=== PATIENT | male | born 1945 | race Caucasian/White ===

== ENCOUNTER 2016-12-22 14:36 | Inpatient (IN) ==
[2016-12-22 17:50] LABS: Basophils % 0.2 %; Eosinophils # 0.3 K/mcL (0.0-0.6); Hemoglobin 11.5 g/dL (12.9-16.9); Immature Granulocytes % 0.5 % (0-4); Immature Platelets 3.2 % (1.1-6.1); Lymphocytes # 1.7 K/mcL (0.6-4.6); Lymphocytes % 13.4 %; Mean Corpuscular HGB Conc 31.1 g/dL (31.6-35.5); Mean Corpuscular Hemoglobin 31.3 pg (28.0-33.3); Mean Corpuscular Volume 100.5 fL (83.0-100.0); Mean Platelet Volume 9.9 fL (9.4-12.4); Monocytes # 0.8 K/mcL (0.0-1.3); Neutrophils # 10.1 K/mcL (1.6-8.9); Platelet Count 268 K/mcL (140-400); Red Blood Count 3.68 M/mcL (4.19-5.50); Red Cell Distribution Width 13.2 % (11.5-14.5); Segmented Neutrophils % 77.9 %
[2016-12-22 18:04] LABS: Alanine Aminotransferase 14 Units/L (0-55); Albumin 3.1 g/dL (3.5-5.0); Albumin/Globulin Ratio 0.9 (1.1-2.2); Alkaline Phosphatase 71 Units/L (38-126); Aspartate Amino Transferase 11 Units/L (5-34); BUN/Creatinine Ratio 11 (6-26); Bilirubin,Total 0.3 mg/dL (0.2-1.2); Blood Urea Nitrogen 13 mg/dL (8-26); Calcium 9.6 mg/dL (8.6-10.8); Carbon Dioxide 36 mEq/L (19-29); Chloride 96 mEq/L (98-109); Globulin 3.5 g/dL (2.4-3.5); Glucose 94 mg/dL (70-99); Osmolality,Calculated 288 (280-300); Potassium 4.4 mEq/L (3.5-4.5); Sodium 139 mEq/L (136-145); Total Protein 6.6 g/dL (6.0-8.3); eGFR For African Americans > 60 (> 60); eGFR For Non-African Americans 59 (> 60)
[2016-12-22] MEDS ORDERED: Naloxone 0.4 MG/ML INJ IVP PRN (18:27)
[2016-12-22] MEDS ORDERED: Acetaminophen 325 MG TABLET PO PRN (18:27)
[2016-12-22] MEDS ORDERED: Ondansetron 4 MG/2 ML VIAL IVP PRN (18:27)
[2016-12-22] MEDS ORDERED: *HR* Morphine 2 MG/ML SYRINGE IVP PRN (18:27)
[2016-12-22] MEDS ORDERED: Td (TENIVAC) Vaccine 0.5 ML VIAL IM ONE (18:38)
[2016-12-22] MEDS ORDERED: *HR* Dextrose 50 % in Water (Syg) 50 ML SYRINGE IVP PRN (19:00)
[2016-12-22] MEDS ORDERED: Dextrose Gel 15 GM PO PRN ×2 (19:00)
[2016-12-22] MEDS ORDERED: D5% in Water 1,000 ML IVC PRN (19:00)
[2016-12-22] MEDS ORDERED: Albuterol 2.5 MG/3 ML NEBULIZER IH PRN (20:03)
[2016-12-22] MEDS: Budesonide/Formoterol 160/4.5 MDI IH SCH (20:23)
[2016-12-22] MEDS: Ipratropium/Albuterol Neb 3 ML IH SCH ×2 (20:23→23:30)
--- NOTE | 2016-12-22 20:29 | Internal Med History&Physical ---
<Chidi Landrum - Last Filed: 12/22/16 21:19> Date of Encounter: 12/22/16 Time of Encounter: 19:00 Assessment and Plan (1) Cellulitis of left foot Current visit: Yes Status: Acute Patient presents with cellulitis of left foot from stepping on a toothpick wearing only socks. Patient feels there is more debris inside wound which is located under foot on near third toe. Xray today shows no radiopaque foreign body in the left foot. WBC on admission is 12.9. Patient does not meet sepsis criteria based on current VS but will be monitored closely for changes. Consult to Podiatry ordered and discussed with Dr. Banegas who will see patient in the a.m. for procedure. Patient to be NPO at midnight. IV clindamycin 900 mg every 8 and IV ciprofloxacin 400 mg every 12 ordered for infection coverage. Stair- step pain medication for pain management. Falls/safety precautions ordered. (2) Acute exacerbation of chronic obstructive airways disease Current visit: Yes Status: Acute Patient presents with acute exacerbation of COPD. Patient reports he uses home O2 @3L. Currently patient is SOB with and without exertion. Patient's SpO2 in high 80's @ 2L. Elevated HOB improved symptoms. DuoNebs ordered Q4 scheduled. Patient placed on supplemental O2 with titration if SpO2 <92% and continuous SpO2 monitoring. Will continue patient's inhalers as needed. Solumedrol 60 mg Q12 ordered. Monitor patient and VS for signs of respiratory distress. (3) Conjunctivitis Current visit: Yes Status: Acute Patient presents with acute conjunctivitis of the left eye with discharge. Tobramycin ophthalmic drops ordered TID for left eye. Qualifiers: Conjunctivitis type: unspecified Laterality: left Qualified Code(s): H10.9 - Unspecified conjunctivitis (4) Hyperglycemia Current visit: Yes Status: Acute Patient reports he is prediabetic and currently does not take any oral anti- hyperglycemic medications or insulin for coverage. Patient placed on Solu- Medrol 60 mg every 12 for COPD exacerbation. Will monitor blood glucose before meals at bedtime and insulin low-dose correction sliding scale ordered with hypoglycemic protocol. A1c ordered in a.m. labs. (5) HLD (hyperlipidemia) Current visit: Yes Status: Chronic Patient presents with history of chronic hyperlipidemia. Lipid panel ordered and will continue patient's Zocor. Qualifiers: Hyperlipidemia type: pure hypercholesterolemia Qualified Code(s): E78.00 - Pure hypercholesterolemia, unspecified; E78.0 - Pure hypercholesterolemia (6) HTN (hypertension) Current visit: Yes Status: Chronic Patient presents with history of chronic hypertension. Will monitor patient and vital signs and continue atenolol and Imdur by mouth. Qualifiers: Hypertension type: essential hypertension Qualified Code(s): I10 - Essential (primary) hypertension (7) GERD (gastroesophageal reflux disease) Current visit: Yes Status: Chronic Patient presents with history of chronic gastroesophageal reflux disease. Zofran IVP every 6 when necessary and Protonix IVP 40 mg daily ordered. Qualifiers: Esophagitis presence: esophagitis presence not specified Qualified Code(s) : K21.9 - Gastro-esophageal reflux disease without esophagitis (8) Anemia Current visit: Yes Status: Chronic Patient presents with chronic anemia. Patient's Hgb today is 11.5 and HCT is 37. Previously on 09/15/16, patient's Hgb was 13.7 and HCT was 43.5. Patient denies any unusual bleeding in urine or stool. Will monitor H&H and follow-up labs. Will continue patient's daily by mouth B12. Qualifiers: Anemia type: unspecified type Qualified Code(s): D64.9 - Anemia, unspecified (9) CKD (chronic kidney disease) stage 3, GFR 30-59 ml/min Current visit: Yes Status: Chronic Patient presents with history of chronic kidney disease stage III with current GFR of 59. Will use IV fluids judiciously if oriented and avoid nephrotoxic agents. Monitor I&O and daily weight. (10) DVT prophylaxis Current visit: Yes Status: Acute Patient to be placed on DVT prophylaxis due to current admission protocol and bed rest status. Heparin 5,000 units SQ Q8 ordered. Internal Medicine - H&P: HPI Chief complaint: Cellulitis of left foot Admitted From: Emergency Dept Plans for Post Hospital Care: Home History of present illness: Mr. Vickers is a 71 year old male with medical history of COPD, CHF, [place] in 1984 , HLD, HTN, GERD, and pre-diabetes presents from [place] [facility] with complaint of stepping on a toothpick at his home which entered his left foot at the third toe. Patient was wearing socks but no shoes at the time. Patient was referred from [place] ED and Xray of foot today showed no radiopaque foreign body in the left foot, diffuse osteopenia, and no acute osseous abnormality in the left foot. Patient reports SOB due to COPD for which he reports using 3L O2 at home. Patient denies chest pain, recent illness, fever, chills, palpitations, nausea , vomiting, abdominal pain, lightheadedness, dizziness, vision changes, presyncope, or syncope. Patient reports smoking 3-10 cigarettes daily. On admission, patient's vital signs include temperature of 98.1F, heart rate of 74 bpm, respiratory rate of 16, BP of 117/67, and SPO2 96% on 2 L. Abnormal lab values include WBC of 12.9, Hgb 11.5, HCT of 37.0, CO2 36, GFR 59, and chloride of 96. Patient reports being chronically anemic and current Hgb and HCT are near his baseline. Patient denies any unusual bleeding. On examination, patient presents as short of breath due to acute exacerbation of COPD. Patient' s left foot is erythematous and edematous due to anterior toothpick in the foot and foot appears to be cellulitic. Heart rate is RRR and lungs have diminished breath sounds and patient is using accessory muscle breathing due to COPD exacerbation. No pedal edema is present with the exception of left foot due to cellulitis. Patient is hemodynamically stable and reports only moderate respiratory distress at this time. Patient denies any chest pain or other symptoms. Information taken from patient, chart review, her previous medical records and imaging. Mr. Vickers is at high risk for infection and sepsis due to current symptoms and history of replaced his inpatient status with consult to podiatry ordered and discussed with Dr. Banegas. Time spent with patient greater than 40 minutes. Past Med Surg Social Fam HX - Past Medical History Source: patient, old records reviewed Medical history: arthritis, asthma, COPD, GERD, hyperlipidemia, hypertension, renal disease, other Psychiatric history: no psych history - Past Surgical History Surgical History: orthopedic, other (Right forearm fracture, right rotator cuff repair), other (History of cardiac catheterizations without other intervention) - Social History Smoking Status: Current some day smoker Packs per day: 3-10 cigarettes daily Smokeless Tobacco Status: No Alcohol use: none Drug use: none Current living situation: Home Activity Level: Independent ambulation, Uses cane/walker Recent Out of Country Travel Within the Last 8 Weeks: No Exposure or Possible Exposure to Illness During Travel: No - Family History Father Race: Family Member Ethnicity: Non- Living Status: Age at : 63 Cause of : Stroke Hx Family Cardiac Disorders: Yes (GA, CHF, HTN, Stroke) Hx Family Endocrine Disorder: Yes (DM) Mother Race: Family Member Ethnicity: Non- Living Status: Age at : 80 Cause of : Stroke Hx Family Cardiac Disorders: Yes (Stroke, CHF) Brother Race: Family Member Ethnicity: Non- Living Status: Age at : 65 Cause of : CHF Hx Family Cardiac Disorders: Yes (CHF) Hx Family Respiratory Disorders: Yes (COPD, Mesothelioma) Internal Medicine - H&P: Meds Albuterol Sulfate [Proair Hfa] 2 puff IH Q4H PRN 10/25/16 [History] Allopurinol [Zyloprim 100 MG] 200 mg PO DAILY 10/25/16 [History] Atenolol [Tenormin] 50 mg PO DAILY 10/25/16 [History] Budesonide/Formoterol 160/4.5 [Symbicort 160/4.5] 2 puff IH BIDR 10/25/16 [ History] Cholecalciferol (Vitamin D3) [Vitamin D3] 1,000 unit PO DAILY 10/25/16 [History] Clopidogrel [Plavix] 75 mg PO DAILY 10/25/16 [History] Cyanocobalamin (Vitamin B-12) [Vitamin B-12] 2,000 mcg PO DAILY 10/25/16 [ History] Fluticasone Propionate Nasal [Flonase] 50 mcg NS DAILY 10/25/16 [History] Gabapentin [Gralise] 300 mg PO DAILY 10/25/16 [History] Simvastatin [Zocor] 40 mg PO HS 10/25/16 [History] Tiotropium [Spiriva] 18 mcg IH 0700 10/25/16 [History] Albuterol Neb [Proventil Neb] 2.5 mg IH [id number] PRN inh 10/30/16 [Rx] Isosorbide MONOnitrate (24 HR) [Imdur] 30 mg PO DAILY #30 11/03/16 [Rx] Docusate [Colace] 100 mg PO BID PRN 11/27/16 [Rx] Acetaminophen [Tylenol Arthritis] 650 mg PO Q6H PRN 12/22/16 [History] Aspirin 325 mg PO DAILY 12/22/16 [History] Fluticasone/Vilanterol [Breo Ellipta 200-25 Mcg INH] 1 each IH DAILY 12/22/16 [ History] Furosemide [Lasix] 40 mg PO DAILY 12/22/16 [History] HYDROcodone/Acet 5/325 mg [[place] 5-325 mg] 1 tab PO Q4H PRN 12/22/16 [History] Omeprazole [PriLOSEC] 20 mg PO DAILY 12/22/16 [History] Ondansetron ODT [Zofran ODT] 4 mg PO Q4H PRN 12/22/16 [History] Oxygen 3 l NS AD 12/22/16 [History] 3 Allergy/AdvReac Type Severity Reaction Status Date / Time Erythromycin Base Allergy Hives Verified 11/24/16 23:44 Penicillins [PCN] Allergy Hives Verified 11/24/16 23:44 All Systems PM: A 10-system review of systems was performed and is negative for pertinent findings except as documented above in the HPI. - Constitutional Constitutional: no chills, no fever(s), no night sweats - EENT Eyes: no change in vision, no discharge, no pain, no photophobia Ears: no ear discharge, no ear pain, no tinnitus Nose, mouth and throat: no dysphagia, no nasal discharge, no neck pain, no sore throat - Breasts Breasts: as per HPI - Cardiovascular Cardiovascular ROS IM: dyspnea, dyspnea on exertion (Due to COPD exacerbation), no chest pain, no diaphoresis, no lightheadedness, no palpitations, no syncope - Respiratory Respiratory: dyspnea, dyspnea on exertion (Due to COPD exacerbation), no cough, no wheezing, no excessive phlegm production - Gastrointestinal Gastrointestinal: no abdominal pain, no diarrhea, no hematemesis, no hematochezia, no melena, no nausea, no vomiting - Genitourinary Genitourinary ROS male: as per HPI - Musculoskeletal Musculoskeletal ROS IM: no numbness, no tingling - Integumentary Integumentary IM: as per HPI, erythema (Left foot d/t cellulitis), sores (Left foot at third toe from entry point of toothpick), no rash, no unusual bruising - Neurological Neurological ROS: no confusion, no convulsions, no focal weakness, no numbness, no tingling, no tremor(s) - Psychiatric Psychiatric: as per HPI - Endocrine Endocrine IM: as per HPI - Hematologic/Lymphatic Hematologic/Lymphatic: no easy bruising - Allergic/Immunologic Allergic/Immunologic: as per HPI - Constitutional Vitals: Temp Pulse Resp BP Pulse Ox 98.1 F 74 16 117/67 96 12/22/16 19:04 12/22/16 19:04 12/22/16 19:04 12/22/16 19:04 12/22/16 19:04 General appearance: Present: cooperative, mild distress, A&O X 3, pleasant, obese, answers questions appropriately - Head Head exam: Present: atraumatic, normocephalic - Eye Eye exam: Present: PERRL, conjuntiva pink, sclera anicteric Pupils: Present: PERRL - ENT ENT exam: Present: normal exam, normal external ear exam - Neck Neck exam general surgery: Present: normal inspection, supple, trachea midline. Absent: lymphadenopathy - Respiratory Respiratory exam: Present: accessory muscle use, decreased breath sounds, respiratory distress (Due to COPD exacerbation), wheezes - Cardiovascular Cardiovascular exam: Present: RRR, +S1, +S2. Absent: diastolic murmur, gallop, rubs, systolic murmur - GI/Abdominal GI/Abdominal exam: Present: normal bowel sounds, soft, no peritoneal signs. Absent: distended, tenderness - Rectal Rectal exam: Present: deferred - Additional comments: exam deferred. - Extremities Exam Extremities exam: Present: pedal edema (Left foot d/t cellulitis), warm, radial pulses palpable and symmetrical. Absent: calf tenderness, cyanotic - Back Exam Back exam: Present: normal inspection - Neurological Exam Neurological exam: Present: CN II-XII intact, oriented X3, no focal deficits. Absent: pronater drift, facial droop, speech deficit - Psychiatric Psychiatric exam: Present: normal affect, normal mood - Skin Skin exam: Present: dry, intact Internal Med - H&P Results - Labs CBC & Chem 7: 12/22/16 17:36 12/22/16 17:36 Labs: Short CBC 12/22/16 Range/Units 17:36 WBC 12.9 H (4.3-11.1) K/mcL Hgb 11.5 L (12.9-16.9) g/dL Hct 37.0 L (37.5-50.1) % Plt Count 268 (140-400) K/mcL Neutrophils # 10.1 H (1.6-8.9) K/mcL BMP 12/22/16 17:36 Sodium 139 Potassium 4.4 Chloride 96 L Carbon Dioxide 36 H BUN 13 Creatinine 1.21 Glucose 94 Calcium 9.6 Liver Function 12/22/16 Range/Units 17:36 Total Bilirubin 0.3 (0.2-1.2) mg/dL AST 11 (5-34) Units/L ALT 14 (0-55) Units/L Alkaline Phosphatase 71 (38-126) Units/L Albumin 3.1 L (3.5-5.0) g/dL <Jamal Mane - Last Filed: 12/23/16 00:00> Date of Encounter: 12/22/16 Time of Encounter: 23:20 - Constitutional Vitals: Temp Pulse Resp BP Pulse Ox 97.7 F 77 21 123/68 94 12/22/16 23:22 12/22/16 23:22 12/22/16 23:30 12/22/16 23:22 12/22/16 23:30 General appearance: Present: cooperative, A&O X 3, pleasant - Eye Eye exam: Present: conjunctival injection, PERRL. Absent: scleral icterus - Respiratory Respiratory exam: Present: decreased breath sounds, rhonchi, wheezes. Absent: rales - Cardiovascular Cardiovascular exam: Present: RRR, +S1, +S2 - GI/Abdominal GI/Abdominal exam: Present: soft. Absent: tenderness - Extremities Exam Extremities exam: Present: pedal edema Additional comments: left foot with small puncture wound and surrounding cellulitis noted - Back Exam Back exam: Absent: CVA tenderness (L), CVA tenderness (R) Internal Med - H&P Results - Labs CBC & Chem 7: 12/22/16 17:36 12/22/16 17:36 Labs: Short CBC 12/22/16 Range/Units 17:36 WBC 12.9 H (4.3-11.1) K/mcL Hgb 11.5 L (12.9-16.9) g/dL Hct 37.0 L (37.5-50.1) % Plt Count 268 (140-400) K/mcL Neutrophils # 10.1 H (1.6-8.9) K/mcL BMP 12/22/16 17:36 Sodium 139 Potassium 4.4 Chloride 96 L Carbon Dioxide 36 H BUN 13 Creatinine 1.21 Glucose 94 Calcium 9.6 Liver Function 12/22/16 Range/Units 17:36 Total Bilirubin 0.3 (0.2-1.2) mg/dL AST 11 (5-34) Units/L ALT 14 (0-55) Units/L Alkaline Phosphatase 71 (38-126) Units/L Albumin 3.1 L (3.5-5.0) g/dL - Attending Attestation I discussed the patient [place], PMH, ROS, lab data, and exam findings with Anthony Landrum CNP. I then saw and examined patient independently as well. Patient is resting comfortably, but he does have some cough and wheezing. He states he stepped on a toothpick yesterday at home and it went through his sock , not through shoes. He still feels part of the toothpick may still be inside his foot. He has mild pain and swelling, but overall he states it is minimal now. He denies history of diabetes. Dr. Banegas will see patient in the morning and coordinate debridement/surgical exploration if necessary. Patient is long overdue for Tetanus vaccine and did not receive it in ER. I agree with Anthony that it should be administered. Other than my comments above and noted exam findings, I agree with Antohny's assessment adn plan.
[2016-12-22] MEDS: Insulin LISPRO 300 UNITS/3 ML VIAL SQ SCH (21:02)
[2016-12-22] MEDS: Pantoprazole 40 MG VIAL IVP SCH (21:02)
[2016-12-22] MEDS: methylPREDNISolone 125 MG/2 ML VIAL IVP SCH (21:17)
[2016-12-22] MEDS: Tobramycin Opth SOLN 5 ML BOTTLE LEFT EYE SCH (21:37)
[2016-12-22] MEDS: *HR* HYDROcodone/Acet 5/325 mg TABLET PO PRN (22:01)
[2016-12-23] MEDS ORDERED: *HR* Heparin 5,000 UNIT/ML VIAL SQ SCH
[2016-12-23] MEDS: Clindamycin 900 MG/50 ML 900 MG/50 ML IV.SOLN IVPB SCH ×3 (00:41→18:20)
[2016-12-23] MEDS: Ipratropium/Albuterol Neb 3 ML IH SCH ×5 (05:55→21:14)
[2016-12-23 06:01] LABS: Basophils % 0.1 %; Hematocrit 37.4 % (37.5-50.1); Hemoglobin 11.6 g/dL (12.9-16.9); Immature Granulocytes % 0.7 % (0-4); Lymphocytes # 0.4 K/mcL (0.6-4.6); Lymphocytes % 2.4 %; Mean Corpuscular Hemoglobin 31.3 pg (28.0-33.3); Mean Corpuscular Volume 100.8 fL (83.0-100.0); Mean Platelet Volume 10.3 fL (9.4-12.4); Monocytes # 0.1 K/mcL (0.0-1.3); Monocytes % 0.4 %; Neutrophils # 14.7 K/mcL (1.6-8.9); Platelet Count 263 K/mcL (140-400); Red Blood Count 3.71 M/mcL (4.19-5.50); Segmented Neutrophils % 96.4 %
[2016-12-23 06:04] LABS: Prothrombin Time 10.6 Seconds (9.4-12.1)
[2016-12-23 06:07] LABS: Activated Partial Thrombo Time 33.7 Seconds (26.0-36.0)
[2016-12-23 06:11] LABS: Hemoglobin A1C 5.1 %
[2016-12-23 06:15] LABS: BUN/Creatinine Ratio 11 (6-26); Blood Urea Nitrogen 16 mg/dL (8-26); Calcium 9.4 mg/dL (8.6-10.8); Carbon Dioxide 30 mEq/L (19-29); Chloride 97 mEq/L (98-109); Chol/HDL Ratio 4.5 (0-4.9); Cholesterol 184 mg/dL (< 200); Glucose 163 mg/dL (70-99); HDL Cholesterol 41 mg/dL (40-59); LDL Cholesterol,Calculated 125 mg/dL (0-99); Magnesium 1.8 mg/dL (1.6-2.6); Osmolality,Calculated 287 (280-300); Potassium 4.8 mEq/L (3.5-4.5); Sodium 136 mEq/L (136-145); Triglycerides 88 mg/dL (< 150); eGFR For African Americans > 60 (> 60); eGFR For Non-African Americans 50 (> 60)
[2016-12-23] MEDS: Tiotropium 18 MCG inhalation IH SCH (08:17)
[2016-12-23] MEDS: Budesonide/Formoterol 160/4.5 MDI IH SCH ×2 (08:17→21:16)
[2016-12-23] MEDS: Insulin LISPRO 300 UNITS/3 ML VIAL SQ SCH ×4 (09:21→20:51)
[2016-12-23] MEDS: Pantoprazole 40 MG VIAL IVP SCH (09:25)
[2016-12-23] MEDS: Isosorbide MONOnitrate (24 HR) 30 MG TAB.ER.24H PO SCH (09:25)
[2016-12-23] MEDS: methylPREDNISolone 125 MG/2 ML VIAL IVP SCH ×2 (09:25→20:52)
[2016-12-23] MEDS: Furosemide 40 MG TABLET PO SCH (09:25)
[2016-12-23] MEDS: Gabapentin 300 MG CAPSULE PO SCH (09:25)
[2016-12-23] MEDS: Cyanocobalamin (B-12) 1,000 MCG TABLET PO SCH (09:25)
[2016-12-23] MEDS: Aspirin 325 MG TABLET PO SCH (09:25)
[2016-12-23] MEDS: Tobramycin Opth SOLN 5 ML BOTTLE LEFT EYE SCH ×3 (09:26→20:51)
[2016-12-23] MEDS: Cholecalciferol (D-3) 1,000 UNIT TABLET PO SCH (09:26)
[2016-12-23] MEDS: Fluticasone Propionate Nasal 50 MCG/SPRAY BOTTLE NS SCH (09:27)
[2016-12-23] MEDS: *HR* HYDROcodone/Acet 5/325 mg TABLET PO PRN ×2 (12:50→22:00)
--- NOTE | 2016-12-23 13:14 | Internal Med Progress Note ---
Date of Encounter: 12/23/16 Time of Encounter: 13:11 - Assessment and plan (1) Cellulitis of left foot Current Visit: Yes Status: Acute (2) Acute exacerbation of chronic obstructive airways disease Current Visit: Yes Status: Acute (3) CKD (chronic kidney disease) stage 3, GFR 30-59 ml/min Current Visit: Yes Status: Chronic (4) Hyperglycemia Current Visit: Yes Status: Acute (5) HLD (hyperlipidemia) Current Visit: Yes Status: Chronic Qualifiers: Hyperlipidemia type: pure hypercholesterolemia Qualified Code(s): E78.00 - Pure hypercholesterolemia, unspecified; E78.0 - Pure hypercholesterolemia (6) HTN (hypertension) Current Visit: Yes Status: Chronic Qualifiers: Hypertension type: essential hypertension Qualified Code(s): I10 - Essential (primary) hypertension - Subjective Interval history: Mr. Vickers is a 71 year old male with medical history of COPD, CHF, [place] in 1984 , HLD, HTN, GERD, and pre-diabetes presents from [facility] with complaint of stepping on a toothpick at his home which entered his left foot at the third toe. Patient was wearing socks but no shoes at the time. Patient was referred from [facility] and Xray of foot today showed no radiopaque foreign body in the left foot, diffuse osteopenia, and no acute osseous abnormality in the left foot. Patient reports SOB due to COPD for which he reports using 3L O2 at home At this time patient is asymptomatic. His foot examination showed necrotic area under third digit on the left foot. Podiatry will see him for IND. Currently he is on IV Cipro and clindamycin however his white cell count has gone up to 15,000. For now I will continue same antibiotic but his white cell count continued to climb up probably will put him on vancomycin and Zosyn combination which will be covering him better for a dirty wound as well as oral fernando as well as for lungs. Patient came in with shortness of breath also but his breathing has improved. Continue nebulizers. Renal function have deteriorated overnight therefore I will add IV fluids and repeat CBC and CMP in the morning - Constitutional Vitals: Temp Pulse Resp BP Pulse Ox 97.7 F 81 18 96/59 95 12/23/16 11:08 12/23/16 11:08 12/23/16 11:38 12/23/16 11:08 12/23/16 11:38 General appearance: Present: cooperative, A&O X 3, pleasant - Head Head exam: Present: atraumatic, normocephalic - Eye Eye exam: Present: PERRL, conjuntiva pink, sclera anicteric Pupils: Present: PERRL - Neck Neck exam general surgery: Present: supple, trachea midline. Absent: lymphadenopathy - Respiratory Respiratory exam: Present: CTAB. Absent: accessory muscle use, rales, rhonchi, wheezes - Cardiovascular Cardiovascular exam: Present: RRR, +S1, +S2. Absent: diastolic murmur, gallop, rubs, systolic murmur - GI/Abdominal GI/Abdominal exam: Present: normal bowel sounds, soft, no peritoneal signs. Absent: distended, tenderness - Extremities Exam Extremities exam: Present: warm, radial pulses palpable and symmetrical. Absent : calf tenderness, cyanotic, pedal edema Additional comments: Left foot examination showed 2 cm darkish and grayish area with irregular margins with a dark colored object still penetrating the Center slightly tender sensation intact - Neurological Exam Neurological exam: Present: CN II-XII intact, oriented X3, no focal deficits. Absent: pronater drift, facial droop, speech deficit - Skin Skin exam: Present: dry, intact Internal Medicine: Result - Labs CBC & Chem 7: 12/23/16 05:21 12/23/16 05:21 Labs: Short CBC 12/22/16 12/23/16 Range/Units 17:36 05:21 WBC 12.9 H 15.3 H (4.3-11.1) K/mcL Hgb 11.5 L 11.6 L (12.9-16.9) g/dL Hct 37.0 L 37.4 L (37.5-50.1) % Plt Count 268 263 (140-400) K/mcL Neutrophils # 10.1 H 14.7 H (1.6-8.9) K/mcL BMP 12/22/16 12/23/16 17:36 05:21 Sodium 139 136 Potassium 4.4 4.8 H Chloride 96 L 97 L Carbon Dioxide 36 H 30 H BUN 13 16 Creatinine 1.21 1.40 H Glucose 94 163 H Calcium 9.6 9.4 Liver Function 12/22/16 Range/Units 17:36 Total Bilirubin 0.3 (0.2-1.2) mg/dL AST 11 (5-34) Units/L ALT 14 (0-55) Units/L Alkaline Phosphatase 71 (38-126) Units/L Albumin 3.1 L (3.5-5.0) g/dL - ABG Interpretation ABG results: PT/INR, D-dimer PT 10.6 Seconds (9.4-12.1) 12/23/16 05:21 - Impressions Impressions Chest X-Ray 12/22/16 20:36 IMPRESSION: Chronic blunting of the left costophrenic angle. No new infiltrates identified. D/ / Kranthi Ty MD / Kranthi Ty MD Interpreting Provider: Kranthi Ty MD
--- NOTE | 2016-12-23 13:19 | Podiatry Consult Note ---
Date of Encounter: 12/23/16 Time of Encounter: 12:00 Assessment and Plan (1) Cellulitis of left foot Current visit: Yes Status: Acute Assessment: #1 cellulitis of left foot with possible abscess secondary to puncture wound plantar third toe. #2 multiple comorbidities as outlined in history. Plan: #1 agree with present antibiotics therapy #2 recommend formal I&D with deep cultures and removal of any possible foreign body Discussed the risks versus benefits as well as alternatives to surgical intervention with the patient in detail. Patient ample opportunity to ask questions well-planned procedure and types of anesthetic that can be employed. Those questions are answered to his satisfaction. We Will Proceed to the Operating Room This Afternoon for Formal Incision and Drainage History of Present Illness Chief complaint: Infection left foot secondary to trauma HPI: Mr. Vickers is a 71 year old male stepped on a toothpick Monday of this week and he believes to have removed at became painful presented to ED at [facility] yesterday and transferred to [facility] last evening. Patient has increase in cellulitis ascending lymphangitis and white blood cell count no evidence of nausea vomiting fever chills, shortness of breath no complaints of chest pain. Wound is on the plantar aspect of the third toe left foot at the sulcus of the digit. Past Med Surg Social Fam HX - Past Medical History Medical history: arthritis, asthma, COPD, GERD, hyperlipidemia, hypertension, renal disease, other Psychiatric history: no psych history - Past Surgical History Surgical History: orthopedic, other (Right forearm fracture, right rotator cuff repair), other (History of cardiac catheterizations without other intervention) - Social History Smoking Status: Current some day smoker Packs per day: 3-10 cigarettes daily Smokeless Tobacco Status: No Alcohol use: none Drug use: none - Family History Father Race: Family Member Ethnicity: Non- Living Status: Age at : 63 Cause of : Stroke Hx Family Cardiac Disorders: Yes ([place], CHF, HTN, Stroke) Hx Family Endocrine Disorder: Yes (DM) Mother Race: Family Member Ethnicity: Non- Living Status: Age at : 80 Cause of : Stroke Hx Family Cardiac Disorders: Yes (Stroke, CHF) Hx Family Musculoskeletal Disorders: Yes (CVA) Brother Race: Family Member Ethnicity: Non- Living Status: Age at : 65 Cause of : CHF Hx Family Cardiac Disorders: Yes (CHF) Hx Family Respiratory Disorders: Yes (COPD, Mesothelioma) Medications and Allergies Albuterol Sulfate [Proair Hfa] 2 puff IH Q4H PRN 10/25/16 [History] Allopurinol [Zyloprim 100 MG] 200 mg PO DAILY 10/25/16 [History] Atenolol [Tenormin] 50 mg PO DAILY 10/25/16 [History] Budesonide/Formoterol 160/4.5 [Symbicort 160/4.5] 2 puff IH BIDR 10/25/16 [ History] Cholecalciferol (Vitamin D3) [Vitamin D3] 1,000 unit PO DAILY 10/25/16 [History] Clopidogrel [Plavix] 75 mg PO DAILY 10/25/16 [History] Cyanocobalamin (Vitamin B-12) [Vitamin B-12] 2,000 mcg PO DAILY 10/25/16 [ History] Fluticasone Propionate Nasal [Flonase] 50 mcg NS DAILY 10/25/16 [History] Gabapentin [Gralise] 300 mg PO DAILY 10/25/16 [History] Simvastatin [Zocor] 40 mg PO HS 10/25/16 [History] Tiotropium [Spiriva] 18 mcg IH 0700 10/25/16 [History] Albuterol Neb [Proventil Neb] 2.5 mg IH [id number] PRN inh 10/30/16 [Rx] Isosorbide MONOnitrate (24 HR) [Imdur] 30 mg PO DAILY #30 11/03/16 [Rx] Docusate [Colace] 100 mg PO BID PRN 11/27/16 [Rx] Acetaminophen [Tylenol Arthritis] 650 mg PO Q6H PRN 12/22/16 [History] Aspirin 325 mg PO DAILY 12/22/16 [History] Fluticasone/Vilanterol [Breo Ellipta 200-25 Mcg INH] 1 each IH DAILY 12/22/16 [ History] Furosemide [Lasix] 40 mg PO DAILY 12/22/16 [History] HYDROcodone/Acet 5/325 mg [[place] 5-325 mg] 1 tab PO Q4H PRN 12/22/16 [History] Omeprazole [PriLOSEC] 20 mg PO DAILY 12/22/16 [History] Ondansetron ODT [Zofran ODT] 4 mg PO Q4H PRN 12/22/16 [History] Oxygen 3 l NS AD 12/22/16 [History] 3 Allergy/AdvReac Type Severity Reaction Status Date / Time Erythromycin Base Allergy Hives Verified 11/24/16 23:44 Penicillins [PCN] Allergy Hives Verified 11/24/16 23:44 All Systems Reviewed: A 10-system review of systems was performed and is negative for pertinent findings except as documented above in the HPI. Physical Exam - Constitutional Vitals: Temp Pulse Resp BP Pulse Ox 97.7 F 81 18 96/59 95 12/23/16 11:08 12/23/16 11:08 12/23/16 11:38 12/23/16 11:08 12/23/16 11:38 General appearance: average body habitus, cooperative - Neurological Exam Neurological exam: Present: alert, no focal deficits - Skin Additional comments: Puncture wound plantar medial aspect third toe left foot with spreading cellulitis dorsally. No fluctuance no odor no purulent drainage - Vascular Capillary Refill: less than 3 seconds (Pedal pulses are palpable skin is warm to touch no evidence of vascular embarrassment. No gross edema except for localized swelling of the left forefoot.) - Ankle & Foot Appearance ankle: normal, swelling, erythema Full ROM ankle: yes ROM: dorsiflexion: normal ROM: plantarflexion: normal ROM: first MTP joint flexion: normal Strength: dorsiflexion: 5/5 Strength: plantarflexion: 5/5 Strength: inversion: 5/5 Strength: eversion: 5/5 Strength: toe extension: 5/5 Strength: toe flexion: 5/5 (Ordered because of pain of left foot puncture wound. ) Results - Labs Result Diagrams: 12/23/16 05:21 12/23/16 05:21 Labs: Abnormal lab results WBC 15.3 K/mcL (4.3-11.1) H 12/23/16 05:21 RBC 3.71 M/mcL (4.19-5.50) L 12/23/16 05:21 Hgb 11.6 g/dL (12.9-16.9) L 12/23/16 05:21 Hct 37.4 % (37.5-50.1) L 12/23/16 05:21 MCV 100.8 fL (83.0-100.0) H 12/23/16 05:21 MCHC 31.0 g/dL (31.6-35.5) L 12/23/16 05:21 Neutrophils # 14.7 K/mcL (1.6-8.9) H 12/23/16 05:21 Lymphocytes # 0.4 K/mcL (0.6-4.6) L 12/23/16 05:21 Potassium 4.8 mEq/L (3.5-4.5) H 12/23/16 05:21 Chloride 97 mEq/L (98-109) L 12/23/16 05:21 Carbon Dioxide 30 mEq/L (19-29) H 12/23/16 05:21 Creatinine 1.40 mg/dL (0.72-1.25) H 12/23/16 05:21 Est GFR (Non-Af Amer) 50 (> 60) L 12/23/16 05:21 Glucose 163 mg/dL (70-99) H 12/23/16 05:21 POC Glucose 123 (58-89) H 12/22/16 21:00 Albumin 3.1 g/dL (3.5-5.0) L 12/22/16 17:36 Albumin/Globulin Ratio 0.9 (1.1-2.2) L 12/22/16 17:36 LDL Cholesterol, Calc 125 mg/dL (0-99) H 12/23/16 05:21 H & H 12/22/16 12/23/16 Range/Units 17:36 05:21 Hgb 11.5 L 11.6 L (12.9-16.9) g/dL Hct 37.0 L 37.4 L (37.5-50.1) % All other labs normal. - Diagnostic results Ankle/Foot x-ray: image reviewed
[2016-12-23] MEDS ORDERED: Bupivacaine/Clonidine Syringe 1 EACH SYRINGE ONE (16:27)
--- NOTE | 2016-12-23 16:39 | Anesthesia Evaluation PreOp ---
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: Denies Any Significant HX Other Medical History: Renal (CKD), Diabetes Type II, GERD Anesthesia History: No Prior Anesthetic Complications, Past Anesthesia Alcohol Use: none Drug use: none Medications and Allergies Albuterol Sulfate [Proair Hfa] 2 puff IH Q4H PRN 10/25/16 [History] Allopurinol [Zyloprim 100 MG] 200 mg PO DAILY 10/25/16 [History] Atenolol [Tenormin] 50 mg PO DAILY 10/25/16 [History] Budesonide/Formoterol 160/4.5 [Symbicort 160/4.5] 2 puff IH BIDR 10/25/16 [ History] Cholecalciferol (Vitamin D3) [Vitamin D3] 1,000 unit PO DAILY 10/25/16 [History] Clopidogrel [Plavix] 75 mg PO DAILY 10/25/16 [History] Cyanocobalamin (Vitamin B-12) [Vitamin B-12] 2,000 mcg PO DAILY 10/25/16 [ History] Fluticasone Propionate Nasal [Flonase] 50 mcg NS DAILY 10/25/16 [History] Gabapentin [Gralise] 300 mg PO DAILY 10/25/16 [History] Simvastatin [Zocor] 40 mg PO HS 10/25/16 [History] Tiotropium [Spiriva] 18 mcg IH 0700 10/25/16 [History] Albuterol Neb [Proventil Neb] 2.5 mg IH [id number] PRN inh 10/30/16 [Rx] Isosorbide MONOnitrate (24 HR) [Imdur] 30 mg PO DAILY #30 11/03/16 [Rx] Docusate [Colace] 100 mg PO BID PRN 11/27/16 [Rx] Acetaminophen [Tylenol Arthritis] 650 mg PO Q6H PRN 12/22/16 [History] Aspirin 325 mg PO DAILY 12/22/16 [History] Fluticasone/Vilanterol [Breo Ellipta 200-25 Mcg INH] 1 each IH DAILY 12/22/16 [ History] Furosemide [Lasix] 40 mg PO DAILY 12/22/16 [History] HYDROcodone/Acet 5/325 mg [[place] 5-325 mg] 1 tab PO Q4H PRN 12/22/16 [History] Omeprazole [PriLOSEC] 20 mg PO DAILY 12/22/16 [History] Ondansetron ODT [Zofran ODT] 4 mg PO Q4H PRN 12/22/16 [History] Oxygen 3 l NS AD 12/22/16 [History] 3 Allergy/AdvReac Type Severity Reaction Status Date / Time Erythromycin Base Allergy Hives Verified 11/24/16 23:44 Penicillins [PCN] Allergy Hives Verified 11/24/16 23:44 - Meds/Allergy Pre-op Review Medications Reviewed: Yes Allergies Reviewed: Yes Beta Blockers on Current Med List: Yes If Beta Blockers taken, Date/Time (Last Dose taken): 12/23/2016 at 0925 Anesthesia Results - Labs 12/23/16 05:21 12/23/16 05:21 - Imaging EKG: report reviewed (11/24/2016 SR) Additional studies: 03/14/2016 Echo Impressions: LVEF 60%. Normal LV systolic function with regional variation. Normal left ventricular size and systolic function. There is evidence of mild diastolic dysfunction of the left ventricle. Normal right ventricular size and function. No significant valvular dysfunction. No pulmonary hypertension. 07/26/2012 Stress Impression: * There is a large size, moderate intensity defect throughout the inferior and inferolateral segments consistent with artifact. * Perfusion imaging was negative for ischemia. * Pharmacologic ECG was negative for ischemia at the level of heart rate achieved. * Patient had no chest pain with stress. * Normal hemodynamic response. * No arrhythmias noted with stress. * Gated EF = 62%. * The LV is not dilated and there is no evidence of TID. 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
[2016-12-23] MEDS ORDERED: *HR* Propofol 200 MG/20 ML VIAL IVP ONE (17:19)
[2016-12-23] MEDS ORDERED: Lidocaine -MPF 2% 2 ML VIAL ONE (17:19)
--- NOTE | 2016-12-23 17:36 | Orthopedic Operative Note ---
Date of procedure: 12/23/16 Pre-op diagnosis: #1 abscess with foreign body plantar aspect left foot Post-op diagnosis: other (#1 abscess with foreign body plantar aspect left foot with sinus tract dorsally) Procedure: 12/23/16 17:34 #1 incision and drainage abscess left foot #2 removal foreign-body deep #3 cultures aerobic and anaerobic Gram stain Implants: #1: 1/4 inch plane Nu Gauze packing Complications: None Anesthesia: MAC, local Local Anesthetics: 0.25% Sensorcaine HCL SubQ (cc) (No epinephrine used) Surgeon: Rivas Banegas Estimated blood loss (cc): 5 Tourniquet Time (Minutes): 0 Specimen: Foreign body Condition: stable (left foot) Disposition: floor Procedure in Detail: 12/23/16 17:36 Detail summary of procedure: Patient brought to surgical suite. Sign in procedure performed. Patient transferred to the surgical table and positioned properly safely securely. Left foot and leg elevated on a foam block. No tourniquet was used. Timeout was taken for anesthesia. Left ankle was then prepped with alcohol 3 times in the posterior tibial block was performed only, at the level of the ankle. Local infiltration was carried out with the mid shaft of third metatarsal. Left foot was then prepped and draped in usual sterile manner surgical timeout was taken. A puncture wound was noted on the plantar aspect of the third toe on just lateral to the midline of the digit at sulcus. Incision was made from the proximal phalangeal joint plantarly midline through the puncture site and then carried onto the sulcus. Expression of sanguinous purulent drainage was immediate. Was cultured aerobic and anaerobic and also Gram stain requested. The incision was then deepened to the superficial fascia. Foreign body was noted level of the deep fascia it was extirpated using a curved hemostat. It was noted to track dorsally and laterally, to the dorsal aspect of the foot. It was removed and measured approximately 1-3/8 inches long. Clinically consistent with a toothpick.. Purulent drainage was expressed on going through a sinus tract that extended to the dorsal aspect of the third interspace at the base of toes #3 and 4. It was gently explored using a curved Metzenbaum scissor. It was then copiously lavaged with warm sterile saline. Any nonviable tissue was gently debrided with a pickup and scissor surgical debridement was carried out without difficulty or complication there is no active bleeding necessitating use of a ligature. After thorough irrigation and satisfied we had clean wound clinically, several sutures were placed in either end of the incision after placement of quarter inch plain Nu Gauze throughout the course of the sinus track dorsally area the wound was then dressed with clean dry sterile gauze and Kerlix. Patient tolerated the procedure well and was sent to holding room in good condition with vital signs stable as noted blood loss less than 5 mL.
--- NOTE | 2016-12-23 17:44 | Anesthesia Evaluation Post Op ---
Date of Encounter: 12/23/16 Time of Encounter: 17:42 - Vital Signs Vital Signs: 3 Vital Signs Time 1738 BP 93/48 Pulse 72 Resp 20 O2 Sat 94 - Lungs Lungs: Clear Ascult./Percussion - Airway Airway: Non-obstructed - Cardiovascular Regular Rate - Mental Status Mental Status: Alert & Oriented, Answers Appropriately - Pain Pain Scale: 0 Pain Scale used: Numeric (1 - 10) - Nausea Vomiting Nausea Vomiting: Not Present - Hydration Hydration: Ice chips, Has not voided - Discharge PostOp Status: Transfer Patient to floor
[2016-12-24] MEDS: Ipratropium/Albuterol Neb 3 ML IH SCH ×6 (00:01→20:54)
[2016-12-24] MEDS: Clindamycin 900 MG/50 ML 900 MG/50 ML IV.SOLN IVPB SCH ×4 (01:06→23:44)
[2016-12-24 04:44] LABS: Basophils % 0.1 %; Hematocrit 34.4 % (37.5-50.1); Hemoglobin 11.1 g/dL (12.9-16.9); Immature Granulocytes % 0.9 % (0-4); Lymphocytes # 0.5 K/mcL (0.6-4.6); Lymphocytes % 2.8 %; Mean Corpuscular HGB Conc 32.3 g/dL (31.6-35.5); Mean Corpuscular Hemoglobin 31.8 pg (28.0-33.3); Mean Corpuscular Volume 98.6 fL (83.0-100.0); Mean Platelet Volume 10.2 fL (9.4-12.4); Monocytes # 0.3 K/mcL (0.0-1.3); Monocytes % 1.7 %; Neutrophils # 17.3 K/mcL (1.6-8.9); Platelet Count 235 K/mcL (140-400); Red Blood Count 3.49 M/mcL (4.19-5.50); Red Cell Distribution Width 12.7 % (11.5-14.5); Segmented Neutrophils % 94.5 %
[2016-12-24] MEDS: *HR* HYDROcodone/Acet 5/325 mg TABLET PO PRN ×3 (06:49→22:54)
[2016-12-24] MEDS: Budesonide/Formoterol 160/4.5 MDI IH SCH ×2 (07:51→20:54)
[2016-12-24] MEDS: Tiotropium 18 MCG inhalation IH SCH (07:59)
[2016-12-24 08:36] LABS: Albumin 3.3 g/dL (3.5-5.0)
--- NOTE | 2016-12-24 09:00 | Podiatry Progress Note ---
Date of Encounter: 12/24/16 Time of Encounter: 08:57 - Assessment and Plan (1) Cellulitis of left foot Current Visit: Yes Status: Acute Assessment: #1 cellulitis of left foot with possible abscess secondary to puncture wound plantar third toe. #2 multiple comorbidities as outlined in history. Plan: #1 agree with present antibiotics therapy #2 recommend formal I&D with deep cultures and removal of any possible foreign body Discussed the risks versus benefits as well as alternatives to surgical intervention with the patient in detail. Patient ample opportunity to ask questions well-planned procedure and types of anesthetic that can be employed. Those questions are answered to his satisfaction. We Will Proceed to the Operating Room This Afternoon for Formal Incision and Drainage Assessment: #1 healing I&D left foot cultures pending Plan: #1 change dressing today irrigate the wound reapply Nu Gauze packing and dry sterile dressing. Subjective Principal diagnosis: Postop day #1 Interval history: Patient underwent I&D with intraoperative cultures irrigation debridement and placement of Nu Gauze packing. No complaints of chest pain nausea vomiting fever chills. Patient complained of a brief episode of pressure pain which his symptoms subsided over the last 8-12 hours. Objective - Vital Signs Vital Signs: Vital Signs Temp Pulse Resp BP Pulse Ox 12/24/16 07:54 18 91 12/24/16 07:16 97 F L 73 14 122/62 94 12/24/16 04:54 18 94 12/24/16 03:38 97.7 F 70 16 120/52 96 12/24/16 00:04 20 12/23/16 23:11 97.6 F 77 16 106/55 94 12/23/16 19:19 97.4 F L 78 16 115/62 92 12/23/16 15:14 17 107/60 95 12/23/16 14:52 98.0 F 74 17 107/60 95 12/23/16 11:38 18 95 12/23/16 11:08 97.7 F 81 15 96/59 93 Intake and Output 12/23/16 12/24/16 12/24/16 23:59 07:59 15:59 Intake Total 50 / 50 250 / 250 Output Total 5 / 5 800 / 800 Balance 45 / 45 -550 / -550 Intake: IV Fluids 50 / 50 250 / 250 Cipro Premix 400 MG/200 200 / 200 ML 400 mg In 200 ml @ 200 mls/hr IVPB Q12H [facility] Rx# :[id number] Cleocin Premix 900 MG/50 50 / 50 50 / 50 ML 900 mg In 50 ml @ 50 mls/hr IVPB Q8HR [facility]OL Rx#: [id number] Output: Urine 800 / 800 Estimated Blood Loss Other: Weight 91.354 kg Blood Glucose* 139 141 Patient Weight 12/24/16 23:59 Weight 91.354 kg - Exam Exam: #1 patient healing uneventfully without complication with saline increase in white count which may be spurious. We will redraw later today. - Lab Result Diagrams: 12/24/16 04:16 12/23/16 05:21 Labs: Abnormal lab results WBC 18.3 K/mcL (4.3-11.1) H 12/24/16 04:16 RBC 3.49 M/mcL (4.19-5.50) L 12/24/16 04:16 Hgb 11.1 g/dL (12.9-16.9) L 12/24/16 04:16 Hct 34.4 % (37.5-50.1) L 12/24/16 04:16 Neutrophils # 17.3 K/mcL (1.6-8.9) H 12/24/16 04:16 Lymphocytes # 0.5 K/mcL (0.6-4.6) L 12/24/16 04:16 Potassium 4.8 mEq/L (3.5-4.5) H 12/23/16 05:21 Chloride 97 mEq/L (98-109) L 12/23/16 05:21 Carbon Dioxide 30 mEq/L (19-29) H 12/23/16 05:21 Creatinine 1.40 mg/dL (0.72-1.25) H 12/23/16 05:21 Est GFR (Non-Af Amer) 50 (> 60) L 12/23/16 05:21 Glucose 163 mg/dL (70-99) H 12/23/16 05:21 POC Glucose 139 (58-89) H 12/23/16 16:30 Albumin 3.1 g/dL (3.5-5.0) L 12/22/16 17:36 Albumin/Globulin Ratio 0.9 (1.1-2.2) L 12/22/16 17:36 LDL Cholesterol, Calc 125 mg/dL (0-99) H 12/23/16 05:21 Consult Discharge Plan - Plan Referrals: NONE,PCP [Primary Care Provider] -
[2016-12-24] MEDS: Isosorbide MONOnitrate (24 HR) 30 MG TAB.ER.24H PO SCH (09:09)
[2016-12-24] MEDS: Aspirin 325 MG TABLET PO SCH (09:09)
[2016-12-24] MEDS: Cholecalciferol (D-3) 1,000 UNIT TABLET PO SCH (09:09)
[2016-12-24] MEDS: Furosemide 40 MG TABLET PO SCH (09:09)
[2016-12-24] MEDS: Cyanocobalamin (B-12) 1,000 MCG TABLET PO SCH (09:09)
[2016-12-24] MEDS: Gabapentin 300 MG CAPSULE PO SCH (09:10)
[2016-12-24] MEDS: methylPREDNISolone 125 MG/2 ML VIAL IVP SCH (09:11)
[2016-12-24] MEDS: Insulin LISPRO 300 UNITS/3 ML VIAL SQ SCH ×4 (09:11→20:51)
[2016-12-24] MEDS: Pantoprazole 40 MG VIAL IVP SCH (09:11)
[2016-12-24] MEDS: Tobramycin Opth SOLN 5 ML BOTTLE LEFT EYE SCH ×3 (09:12→20:48)
[2016-12-24] MEDS: Fluticasone Propionate Nasal 50 MCG/SPRAY BOTTLE NS SCH (09:12)
[2016-12-24 09:38] LABS: Albumin/Globulin Ratio 1.1 (1.1-2.2); Bilirubin,Total 0.3 mg/dL (0.2-1.2); Calcium 9.3 mg/dL (8.6-10.8); Globulin 3.1 g/dL (2.4-3.5); Potassium 4.9 mEq/L (3.5-4.5); Total Protein 6.4 g/dL (6.0-8.3)
--- NOTE | 2016-12-24 17:38 | Internal Med Progress Note ---
Date of Encounter: 12/24/16 Time of Encounter: 17:37 - Assessment and plan (1) Cellulitis of left foot Current Visit: Yes Status: Acute (2) Acute exacerbation of chronic obstructive airways disease Current Visit: Yes Status: Acute (3) CKD (chronic kidney disease) stage 3, GFR 30-59 ml/min Current Visit: Yes Status: Chronic (4) Hyperglycemia Current Visit: Yes Status: Acute (5) HLD (hyperlipidemia) Current Visit: Yes Status: Chronic Qualifiers: Hyperlipidemia type: pure hypercholesterolemia Qualified Code(s): E78.00 - Pure hypercholesterolemia, unspecified; E78.0 - Pure hypercholesterolemia (6) HTN (hypertension) Current Visit: Yes Status: Chronic Qualifiers: Hypertension type: essential hypertension Qualified Code(s): I10 - Essential (primary) hypertension - Subjective Interval history: Mr. Vickers is a 71 year old male with medical history of COPD, CHF, [place] in 1984 , HLD, HTN, GERD, and pre-diabetes presents from [place] ED with complaint of stepping on a toothpick at his home which entered his left foot at the third toe. Patient was wearing socks but no shoes at the time. Patient was referred from [place] ED and Xray of foot today showed no radiopaque foreign body in the left foot, diffuse osteopenia, and no acute osseous abnormality in the left foot. Patient reports SOB due to COPD for which he reports using 3L O2 at home At this time patient is asymptomatic. His foot examination showed necrotic area under third digit on the left foot. Podiatry has operated on .. Currently he is on IV Cipro and clindamycin however his white cell count has gone up to 15,000. For now I will continue same antibiotic but his white cell count continued to climb up probably will put him on vancomycin and Zosyn combination which will be covering him better for a dirty wound as well as oral fernando as well as for lungs. Patient came in with shortness of breath also but his breathing has improved. Continue nebulizers. I will reduce IV Solu-Medrol to 40 twice a day. Renal function have deteriorated overnight therefore I will add IV fluids and repeat CBC and CMP in the morning - Constitutional Vitals: Temp Pulse Resp BP Pulse Ox 97.6 F 71 18 136/64 90 12/24/16 15:59 12/24/16 15:59 12/24/16 16:04 12/24/16 15:59 12/24/16 16:04 General appearance: Present: cooperative, A&O X 3, pleasant Internal Medicine: Result - Labs CBC & Chem 7: 12/24/16 04:16 12/24/16 07:41 Labs: Short CBC 12/24/16 Range/Units 04:16 WBC 18.3 H (4.3-11.1) K/mcL Hgb 11.1 L (12.9-16.9) g/dL Hct 34.4 L (37.5-50.1) % Plt Count 235 (140-400) K/mcL Neutrophils # 17.3 H (1.6-8.9) K/mcL BMP 12/24/16 07:41 Sodium 137 Potassium 4.9 H Chloride 97 L Carbon Dioxide 31 H BUN 29 H D Creatinine 1.77 H Glucose 146 H Calcium 9.3 Liver Function 12/24/16 Range/Units 07:41 Total Bilirubin 0.3 (0.2-1.2) mg/dL AST 11 (5-34) Units/L ALT 12 (0-55) Units/L Alkaline Phosphatase 62 (38-126) Units/L Albumin 3.3 L (3.5-5.0) g/dL - ABG Interpretation ABG results: PT/INR, D-dimer PT 10.6 Seconds (9.4-12.1) 12/23/16 05:21 Consult Discharge Plan - Plan Referrals: NONE,PCP [Primary Care Provider] -
[2016-12-24] MEDS: MethylPREDNISolone 40 MG/ML VIAL IVP SCH (17:55)
[2016-12-24] MEDS: 0.9 % Sodium Chloride 1,000 ML IVC SCH (17:55)
[2016-12-24 18:16] LABS: Basophils % 0.1 %; Hematocrit 36.2 % (37.5-50.1); Hemoglobin 11.5 g/dL (12.9-16.9); Immature Granulocytes % 1.5 % (0-4); Lymphocytes # 0.5 K/mcL (0.6-4.6); Lymphocytes % 2.2 %; Mean Corpuscular HGB Conc 31.8 g/dL (31.6-35.5); Mean Corpuscular Hemoglobin 31.1 pg (28.0-33.3); Mean Corpuscular Volume 97.8 fL (83.0-100.0); Mean Platelet Volume 10.4 fL (9.4-12.4); Monocytes # 0.4 K/mcL (0.0-1.3); Monocytes % 1.7 %; Platelet Count 300 K/mcL (140-400); Red Cell Distribution Width 12.6 % (11.5-14.5); Segmented Neutrophils % 94.5 %
[2016-12-24 18:17] LABS: Neutrophils # 21.7 K/mcL (1.6-8.9)
[2016-12-24 19:17] LABS: Large Platelets Present (Not Present); Platelet Estimate Normal (Normal)
[2016-12-25] MEDS: Ipratropium/Albuterol Neb 3 ML IH SCH ×7 (00:39→20:32)
[2016-12-25 01:20] LABS: Basophils % 0.1 %; Hematocrit 34.1 % (37.5-50.1); Immature Granulocytes % 1.2 % (0-4); Lymphocytes # 0.5 K/mcL (0.6-4.6); Lymphocytes % 2.8 %; Mean Corpuscular HGB Conc 32.3 g/dL (31.6-35.5); Mean Corpuscular Hemoglobin 31.5 pg (28.0-33.3); Mean Corpuscular Volume 97.7 fL (83.0-100.0); Mean Platelet Volume 9.9 fL (9.4-12.4); Monocytes # 0.3 K/mcL (0.0-1.3); Monocytes % 1.7 %; Neutrophils # 16.7 K/mcL (1.6-8.9); Platelet Count 243 K/mcL (140-400); Red Blood Count 3.49 M/mcL (4.19-5.50); Red Cell Distribution Width 12.7 % (11.5-14.5); Segmented Neutrophils % 94.2 %
[2016-12-25 01:47] LABS: Albumin 2.8 g/dL (3.5-5.0); Albumin/Globulin Ratio 0.9 (1.1-2.2); Bilirubin,Total 0.2 mg/dL (0.2-1.2); Calcium 8.9 mg/dL (8.6-10.8); Globulin 3.2 g/dL (2.4-3.5); Potassium 4.5 mEq/L (3.5-4.5)
[2016-12-25] MEDS: MethylPREDNISolone 40 MG/ML VIAL IVP SCH (06:03)
[2016-12-25] MEDS: Budesonide/Formoterol 160/4.5 MDI IH SCH ×2 (07:44→20:32)
[2016-12-25] MEDS: Tiotropium 18 MCG inhalation IH SCH (07:46)
[2016-12-25] MEDS: Insulin LISPRO 300 UNITS/3 ML VIAL SQ SCH ×4 (08:19→20:47)
[2016-12-25] MEDS: Clindamycin 900 MG/50 ML 900 MG/50 ML IV.SOLN IVPB SCH ×2 (08:32→16:11)
[2016-12-25] MEDS: Cyanocobalamin (B-12) 1,000 MCG TABLET PO SCH (08:33)
[2016-12-25] MEDS: Aspirin 325 MG TABLET PO SCH (08:34)
[2016-12-25] MEDS: Cholecalciferol (D-3) 1,000 UNIT TABLET PO SCH (08:34)
[2016-12-25] MEDS: Gabapentin 300 MG CAPSULE PO SCH (08:34)
[2016-12-25] MEDS: Isosorbide MONOnitrate (24 HR) 30 MG TAB.ER.24H PO SCH (08:34)
[2016-12-25] MEDS: Tobramycin Opth SOLN 5 ML BOTTLE LEFT EYE SCH ×3 (08:35→20:47)
[2016-12-25] MEDS: Fluticasone Propionate Nasal 50 MCG/SPRAY BOTTLE NS SCH (08:35)
[2016-12-25] MEDS: Pantoprazole 40 MG VIAL IVP SCH (08:35)
--- NOTE | 2016-12-25 14:18 | Internal Med Progress Note ---
Date of Encounter: 12/25/16 Time of Encounter: 14:15 - Assessment and plan (1) Cellulitis of left foot Current Visit: Yes Status: Acute (2) Acute exacerbation of chronic obstructive airways disease Current Visit: Yes Status: Acute (3) CKD (chronic kidney disease) stage 3, GFR 30-59 ml/min Current Visit: Yes Status: Chronic (4) Hyperglycemia Current Visit: Yes Status: Acute (5) HLD (hyperlipidemia) Current Visit: Yes Status: Chronic Qualifiers: Hyperlipidemia type: unspecified Qualified Code(s): E78.5 - Hyperlipidemia , unspecified (6) HTN (hypertension) Current Visit: Yes Status: Chronic Qualifiers: Hypertension type: essential hypertension Qualified Code(s): I10 - Essential (primary) hypertension - Subjective Interval history: Mr. Vickers is a 71 year old male with medical history of COPD, CHF, MT in 1984 , HLD, HTN, GERD, and pre-diabetes presents from [place] [facility] with complaint of stepping on a toothpick at his home which entered his left foot at the third toe. Patient was wearing socks but no shoes at the time. Patient was referred from [place] ED and Xray of foot today showed no radiopaque foreign body in the left foot, diffuse osteopenia, and no acute osseous abnormality in the left foot. Patient reports SOB due to COPD for which he reports using 3L O2 at home At this time patient is asymptomatic. His foot examination showed necrotic area under third digit on the left foot. Podiatry has operated on .. Currently he is on IV Cipro and clindamycin however his white cell count has gone up to 15,000. For now I will continue same antibiotic but his white cell count continued to climb up probably will put him on vancomycin and Zosyn combination which will be covering him better for a dirty wound as well as oral fernando as well as for lungs. Patient came in with shortness of breath also but his breathing has improved. Continue nebulizers. I will reduce IV Solu-Medrol to 40 twice a day. Renal function have deteriorated overnight therefore I will add IV fluids and repeat CBC and CMP in the morning 12/25 status post I&D. Sinus tract was noted and explored. Pus was extracted and now he has dressing. Wound culture pending. On clindamycin and Cipro and WBC count is 17.7 thousand today. Chest examination shows clear lungs and reviewed will reduce the frequency of nebulizer treatment. Blood sugars are stable now. Creatinine is still 1.7 therefore IV fluid will be increased to 125 mL an hour and Lasix will be put on hold. Repeat CBC in the morning. - Constitutional Vitals: Temp Pulse Resp BP Pulse Ox 97.6 F 73 18 115/70 90 12/25/16 11:28 12/25/16 11:28 12/25/16 11:42 12/25/16 11:42 12/25/16 11:42 General appearance: Present: cooperative, A&O X 3, pleasant - Head Head exam: Present: atraumatic, normocephalic - Eye Eye exam: Present: PERRL, conjuntiva pink, sclera anicteric Pupils: Present: PERRL - Neck Neck exam general surgery: Present: supple, trachea midline. Absent: lymphadenopathy - Respiratory Respiratory exam: Present: CTAB. Absent: accessory muscle use, rales, rhonchi, wheezes - Cardiovascular Cardiovascular exam: Present: RRR, +S1, +S2. Absent: diastolic murmur, gallop, rubs, systolic murmur - GI/Abdominal GI/Abdominal exam: Present: normal bowel sounds, soft, no peritoneal signs. Absent: distended, tenderness - Extremities Exam Extremities exam: Present: warm, radial pulses palpable and symmetrical. Absent : calf tenderness, cyanotic, pedal edema Additional comments: Left foot is wrapped in gauze dressing - Neurological Exam Neurological exam: Present: CN II-XII intact, oriented X3, no focal deficits. Absent: pronater drift, facial droop, speech deficit - Skin Skin exam: Present: dry, intact Internal Medicine: Result - Labs CBC & Chem 7: 12/25/16 01:06 12/25/16 01:06 Labs: Short CBC 12/24/16 12/25/16 Range/Units 17:30 01:06 WBC 23.0 H 17.7 H (4.3-11.1) K/mcL Hgb 11.5 L 11.0 L (12.9-16.9) g/dL Hct 36.2 L 34.1 L (37.5-50.1) % Plt Count 300 243 (140-400) K/mcL Neutrophils # 21.7 H 16.7 H (1.6-8.9) K/mcL BMP 12/25/16 01:06 Sodium 135 L Potassium 4.5 Chloride 96 L Carbon Dioxide 31 H BUN 37 H Creatinine 1.78 H Glucose 163 H Calcium 8.9 Liver Function 12/25/16 Range/Units 01:06 Total Bilirubin 0.2 (0.2-1.2) mg/dL AST 10 (5-34) Units/L ALT 11 (0-55) Units/L Alkaline Phosphatase 56 (38-126) Units/L Albumin 2.8 L (3.5-5.0) g/dL - ABG Interpretation ABG results: PT/INR, D-dimer PT 10.6 Seconds (9.4-12.1) 12/23/16 05:21 Consult Discharge Plan - Plan Referrals: NONE,PCP [Primary Care Provider] -
[2016-12-25] MEDS: 0.9 % Sodium Chloride 1,000 ML IVC SCH (16:10)
[2016-12-25] MEDS: predniSONE 20 MG TABLET PO SCH (16:10)
[2016-12-25] MEDS: *HR* HYDROcodone/Acet 5/325 mg TABLET PO PRN (20:51)
[2016-12-26] MEDS: Ipratropium/Albuterol Neb 3 ML IH SCH ×6 (00:16→16:03)
[2016-12-26] MEDS: Clindamycin 900 MG/50 ML 900 MG/50 ML IV.SOLN IVPB SCH ×2 (00:52→09:48)
[2016-12-26] MEDS: 0.9 % Sodium Chloride 1,000 ML IVC SCH ×2 (00:53→02:14)
[2016-12-26 04:31] LABS: Basophils % 0.1 %; Hematocrit 34.7 % (37.5-50.1); Hemoglobin 11.1 g/dL (12.9-16.9); Lymphocytes # 0.5 K/mcL (0.6-4.6); Mean Corpuscular Hemoglobin 31.7 pg (28.0-33.3); Mean Corpuscular Volume 99.1 fL (83.0-100.0); Mean Platelet Volume 10.4 fL (9.4-12.4); Monocytes # 0.4 K/mcL (0.0-1.3); Neutrophils # 12.3 K/mcL (1.6-8.9); Platelet Count 241 K/mcL (140-400); Red Cell Distribution Width 12.8 % (11.5-14.5); Segmented Neutrophils % 90.9 %
[2016-12-26 04:51] LABS: Alanine Aminotransferase 11 Units/L (0-55); Albumin 2.8 g/dL (3.5-5.0); Alkaline Phosphatase 50 Units/L (38-126); Aspartate Amino Transferase 10 Units/L (5-34); BUN/Creatinine Ratio 26 (6-26); Bilirubin,Total 0.2 mg/dL (0.2-1.2); Blood Urea Nitrogen 33 mg/dL (8-26); Calcium 8.4 mg/dL (8.6-10.8); Carbon Dioxide 28 mEq/L (19-29); Chloride 102 mEq/L (98-109); Globulin 2.9 g/dL (2.4-3.5); Glucose 149 mg/dL (70-99); Osmolality,Calculated 296 (280-300); Potassium 4.7 mEq/L (3.5-4.5); Sodium 138 mEq/L (136-145); Total Protein 5.7 g/dL (6.0-8.3); eGFR For African Americans > 60 (> 60); eGFR For Non-African Americans 56 (> 60)
[2016-12-26 07:09] VITALS: BP 157/81
[2016-12-26] MEDS: Insulin LISPRO 300 UNITS/3 ML VIAL SQ SCH (07:44)
[2016-12-26] MEDS: Tiotropium 18 MCG inhalation IH SCH (07:55)
[2016-12-26] MEDS: Budesonide/Formoterol 160/4.5 MDI IH SCH (07:55)
[2016-12-26] MEDS: Aspirin 325 MG TABLET PO SCH (09:39)
[2016-12-26] MEDS: Gabapentin 300 MG CAPSULE PO SCH (09:39)
[2016-12-26] MEDS: Cyanocobalamin (B-12) 1,000 MCG TABLET PO SCH (09:39)
[2016-12-26] MEDS: Cholecalciferol (D-3) 1,000 UNIT TABLET PO SCH (09:39)
[2016-12-26] MEDS: Isosorbide MONOnitrate (24 HR) 30 MG TAB.ER.24H PO SCH (09:39)
[2016-12-26] MEDS: predniSONE 20 MG TABLET PO SCH (09:40)
[2016-12-26] MEDS: Fluticasone Propionate Nasal 50 MCG/SPRAY BOTTLE NS SCH (09:48)
[2016-12-26] MEDS: Tobramycin Opth SOLN 5 ML BOTTLE LEFT EYE SCH (09:49)
--- NOTE | 2016-12-26 09:49 | Discharge Summary ---
Date of Encounter: 12/26/16 Time of Encounter: 09:43 - Discharge Diagnosis (1) Cellulitis of left foot Priority: Primary Status: Acute (2) Acute exacerbation of chronic obstructive airways disease Priority: Secondary Status: Acute (3) CKD (chronic kidney disease) stage 3, GFR 30-59 ml/min Priority: Secondary Status: Chronic (4) Hyperglycemia Priority: Secondary Status: Acute (5) HLD (hyperlipidemia) Priority: Secondary Status: Chronic Qualifiers: Hyperlipidemia type: unspecified Qualified Code(s): E78.5 - Hyperlipidemia , unspecified (6) HTN (hypertension) Priority: Secondary Status: Chronic Qualifiers: Hypertension type: essential hypertension Qualified Code(s): I10 - Essential (primary) hypertension - Discharge Medications Prescriptions: Ciprofloxacin [Cipro] 500 mg PO BID #20 tablet Clindamycin HCl 300 mg PO TID #30 capsule predniSONE [PredniSONE] 10 mg PO DAILY #30 tab Home Medications: Albuterol Sulfate [Proair Hfa] 2 puff IH Q4H PRN 10/25/16 [History] Allopurinol [Zyloprim 100 MG] 200 mg PO DAILY 10/25/16 [History] Atenolol [Tenormin] 50 mg PO DAILY 10/25/16 [History] Budesonide/Formoterol 160/4.5 [Symbicort 160/4.5] 2 puff IH BIDR 10/25/16 [ History] Cholecalciferol (Vitamin D3) [Vitamin D3] 1,000 unit PO DAILY 10/25/16 [History] Clopidogrel [Plavix] 75 mg PO DAILY 10/25/16 [History] Cyanocobalamin (Vitamin B-12) [Vitamin B-12] 2,000 mcg PO DAILY 10/25/16 [ History] Fluticasone Propionate Nasal [Flonase] 50 mcg NS DAILY 10/25/16 [History] Gabapentin [Gralise] 300 mg PO DAILY 10/25/16 [History] Simvastatin [Zocor] 40 mg PO HS 10/25/16 [History] Tiotropium [Spiriva] 18 mcg IH 0700 10/25/16 [History] Albuterol Neb [Proventil Neb] 2.5 mg IH [id number] PRN inh 10/30/16 [Rx] Isosorbide MONOnitrate (24 HR) [Imdur] 30 mg PO DAILY #30 11/03/16 [Rx] Docusate [Colace] 100 mg PO BID PRN 11/27/16 [Rx] Acetaminophen [Tylenol Arthritis] 650 mg PO Q6H PRN 12/22/16 [History] Aspirin 325 mg PO DAILY 12/22/16 [History] Fluticasone/Vilanterol [Breo Ellipta 200-25 Mcg INH] 1 each IH DAILY 12/22/16 [ History] Furosemide [Lasix] 40 mg PO DAILY 12/22/16 [History] HYDROcodone/Acet 5/325 mg [[place] 5-325 mg] 1 tab PO Q4H PRN 12/22/16 [History] Omeprazole [PriLOSEC] 20 mg PO DAILY 12/22/16 [History] Ondansetron ODT [Zofran ODT] 4 mg PO Q4H PRN 12/22/16 [History] Oxygen 3 l NS AD 12/22/16 [History] Acetaminophen [Tylenol] 650 mg PO Q6HR PRN tab 12/26/16 [Rx] Ciprofloxacin [Cipro] 500 mg PO BID #20 tablet 12/26/16 [Rx] Clindamycin HCl 300 mg PO TID #30 capsule 12/26/16 [Rx] Tobramycin Opth SOLN 1 drop LEFT EYE TID bottle 12/26/16 [Rx] predniSONE [PredniSONE] 10 mg PO DAILY #30 tab 12/26/16 [Rx] Allergies/Adverse Reactions: 3 Allergy/AdvReac Type Severity Reaction Status Date / Time Erythromycin Base Allergy Hives Verified 11/24/16 23:44 Penicillins [PCN] Allergy Hives Verified 11/24/16 23:44 Date of admission: 12/22/16 18:52 Primary care physician: PCP NONE Consults: 12/22/16 18:30 Consult to Occupational Therapy [CONS] Routine Comment: Evaluate, develop and implement POC Reason for Consult: Patient has neuropathy and receives therapy. Please assess for strength, stability, ambulation/assistive needs while inpatient and post- discharge. 12/22/16 18:31 Consult to Physical Therapy [CONS] Routine Comment: Evaluate, develop and implement POC Reason for Consult: Patient has neuropathy and receives therapy. Please assess for strength, stability, ambulation/assistive needs while inpatient and post- discharge. 12/22/16 18:47 Consult to Podiatry [CONS] Routine Consulting Provider: [facility] Reason for Consult: Patient stepped on toothpick with left foot and has developed cellulitis. Dr. Banegas consulted regarding patient who transferred from [facility]. Patient started on Clindamycin for cellulitis infection coverage. Tetanus booster ordered. Call Completed: Yes 12/23/16 12:08 Consult to Off Track Betting Manager [CONS] Routine Reason for SW Consult: discharge planning Discharging clinician: Adalid Singh Anticipated date of discharge: 12/26/16 - Patient Status Disposition: Home Health Service Condition: Good Overall status at discharge: patient is progressing back to baseline - Discharge Instructions Follow Up With: NONE,PCP [Primary Care Provider] - - Diet and Activity Activity: resume usual activities as tolerated Diet: advance to your usual diet, diabetic diet, low fat, low cholesterol, low salt diet Hospital course: MMr. Vickers is a 71 year old male with medical history of COPD, CHF, [place] in 1984 , HLD, HTN, GERD, and pre-diabetes presents from [facility] with complaint of stepping on a toothpick at his home which entered his left foot at the third toe. Patient had x-ray in [facility] which showed showed no radiopaque foreign body in the left foot, diffuse osteopenia, and no acute osseous abnormality in the left foot. On admission patient had white count 15,000 and he was started on IV ciprofloxacin and clindamycin. Podiatry perform IND. Sinus tract was noted and explored. Pus was extracted and now he has dressing. Wound culture are pending and they will be followed by family doctor and podiatry. On admission patient was short of breath. He has oxygen-dependent COPD. He was started on nebulizer treatment and seems to be doing much better. Podiatry is okay to discharge the patient then we will discharge patient on Cipro and clindamycin. Patient white count has coming down and his renal function is stable.. - Time Spent with Patient Total time spent providing and/or coordinating discharge services: Greater than 30 minutes - Constitutional Vitals: Temp Pulse Resp BP Pulse Ox 97.5 F L 78 16 157/81 97 12/26/16 07:08 12/26/16 07:08 12/26/16 07:55 12/26/16 07:08 12/26/16 07:55 General appearance: Present: cooperative, A&O X 3, pleasant - Head Head exam: Present: atraumatic, normocephalic - Eye Eye exam: Present: PERRL, conjuntiva pink, sclera anicteric Pupils: Present: PERRL - Neck Neck exam general surgery: Present: supple, trachea midline. Absent: lymphadenopathy - Respiratory Respiratory exam: Present: CTAB. Absent: accessory muscle use, rales, rhonchi, wheezes - Cardiovascular Cardiovascular exam: Present: RRR, +S1, +S2. Absent: diastolic murmur, gallop, rubs, systolic murmur - GI/Abdominal GI/Abdominal exam: Present: normal bowel sounds, soft, no peritoneal signs. Absent: distended, tenderness - Extremities Exam Extremities exam: Present: warm, radial pulses palpable and symmetrical. Absent : calf tenderness, cyanotic, pedal edema Additional comments: Left foot is in a postsurgical dressing. No discharge reported. Detail examination per podiatry. Change reported. - Neurological Exam Neurological exam: Present: CN II-XII intact, oriented X3, no focal deficits. Absent: pronater drift, facial droop, speech deficit - Skin Skin exam: Present: dry, intact
--- NOTE | 2016-12-26 10:04 | Physician Discharge Referral ---
Home Health/Hosp Referral Info Transfer to: Home Health Attending Provider: zaira Provider in Charge Post Discharge: PCP (Follow with Dr. Banegas for the instructions regarding wound care) - Diagnosis (1) Cellulitis of left foot Status: Acute (2) Acute exacerbation of chronic obstructive airways disease Status: Acute (3) CKD (chronic kidney disease) stage 3, GFR 30-59 ml/min Status: Chronic (4) Hyperglycemia Status: Acute (5) HLD (hyperlipidemia) Status: Chronic (6) HTN (hypertension) Status: Chronic - Respiratory Orders Smoking Cessation: Smoking cessation has been advised. For more information, call the [employer] Quit Line at 2-732-XBJY-NOW. - Dressing/Wound Care Site: Left foot daily dressing with Kerlix and gauze please check with Dr. Banegas the jet dyeing machine operator for detailed instruction he has performed the surgery - Transfer Medications Prescriptions: Ciprofloxacin [Cipro] 500 mg PO BID #20 tablet Clindamycin HCl 300 mg PO TID #30 capsule predniSONE [PredniSONE] 10 mg PO DAILY #30 tab Home Medications: Albuterol Sulfate [Proair Hfa] 2 puff IH Q4H PRN 10/25/16 [History] Allopurinol [Zyloprim 100 MG] 200 mg PO DAILY 10/25/16 [History] Atenolol [Tenormin] 50 mg PO DAILY 10/25/16 [History] Budesonide/Formoterol 160/4.5 [Symbicort 160/4.5] 2 puff IH BIDR 10/25/16 [ History] Cholecalciferol (Vitamin D3) [Vitamin D3] 1,000 unit PO DAILY 10/25/16 [History] Clopidogrel [Plavix] 75 mg PO DAILY 10/25/16 [History] Cyanocobalamin (Vitamin B-12) [Vitamin B-12] 2,000 mcg PO DAILY 10/25/16 [ History] Fluticasone Propionate Nasal [Flonase] 50 mcg NS DAILY 10/25/16 [History] Gabapentin [Gralise] 300 mg PO DAILY 10/25/16 [History] Simvastatin [Zocor] 40 mg PO HS 10/25/16 [History] Tiotropium [Spiriva] 18 mcg IH 0700 10/25/16 [History] Albuterol Neb [Proventil Neb] 2.5 mg IH [id number] PRN inh 10/30/16 [Rx] Isosorbide MONOnitrate (24 HR) [Imdur] 30 mg PO DAILY #30 11/03/16 [Rx] Docusate [Colace] 100 mg PO BID PRN 11/27/16 [Rx] Acetaminophen [Tylenol Arthritis] 650 mg PO Q6H PRN 12/22/16 [History] Aspirin 325 mg PO DAILY 12/22/16 [History] Fluticasone/Vilanterol [Breo Ellipta 200-25 Mcg INH] 1 each IH DAILY 12/22/16 [ History] Furosemide [Lasix] 40 mg PO DAILY 12/22/16 [History] HYDROcodone/Acet 5/325 mg [[place] 5-325 mg] 1 tab PO Q4H PRN 12/22/16 [History] Omeprazole [PriLOSEC] 20 mg PO DAILY 12/22/16 [History] Ondansetron ODT [Zofran ODT] 4 mg PO Q4H PRN 12/22/16 [History] Oxygen 3 l NS AD 12/22/16 [History] Acetaminophen [Tylenol] 650 mg PO Q6HR PRN tab 12/26/16 [Rx] Ciprofloxacin [Cipro] 500 mg PO BID #20 tablet 12/26/16 [Rx] Clindamycin HCl 300 mg PO TID #30 capsule 12/26/16 [Rx] Tobramycin Opth SOLN 1 drop LEFT EYE TID bottle 12/26/16 [Rx] predniSONE [PredniSONE] 10 mg PO DAILY #30 tab 12/26/16 [Rx] Allergies/Adverse Reactions: 3 Allergy/AdvReac Type Severity Reaction Status Date / Time Erythromycin Base Allergy Hives Verified 11/24/16 23:44 Penicillins [PCN] Allergy Hives Verified 11/24/16 23:44 Certification: Further, I certify that my clinical findings support that this patient is homebound (i.e. absences from home require considerable and taxing effort and are for medical reasons or [employer]avian services or infrequently or short duration when for other reasons) because: Homebound Reason: Patient requires assistance of a person or device to safely leave home, Post-surgery restriction and or conditions limit ability to leave home Attestation: My signature below is to certify that this patient is under my care and that I, or nurse practitioner, or a physician's mechanic assistant working with me, has a face-to -face encounter with this patient.
--- NOTE | 2016-12-26 10:43 | Podiatry Progress Note ---
Date of Encounter: 12/26/16 Time of Encounter: 09:40 - Assessment and Plan (1) Cellulitis of left foot Current Visit: Yes Status: Acute Assessment: S/p I&D abscess left foot, removal of foreign body by Dr. Banegas on 12/23/16. Wound cultures negative. WBC:13.5 a febrile. Incision line well approximated, cellulitis has resolved, small open area to the center of the incision line measuring 0.7 cm in length x 0.2 cm in width x 0.3 cm in depth, no pus, no odor, no fluctuance. Scant amount of serous drainage observed to packing. Plan: Dressing changed at bedside, continue wound care as ordered. Cleanse incision line daily, pat dry, apply Nu gauze packing, 4x4 dry sterile gauze, and kerlix. Darco post op shoe ordered for the left foot, with protective weight bearing. Overall significant improvement to left foot and patient is okay to be discharged from a Podiatry standpoint. Patient will need to f/u in Podiatry clinic with in one week of discharge from the hospital Subjective Principal diagnosis: Postop day #1 Interval history: Patient is s/p I&D abscess of left foot, removal of foreign body by Dr. Banegas on 12/23/16. Patient states he is feeling well and wants to know when he can go home. No c/o pain currently. 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 No c/o fever, chills or calf pain. Objective - Vital Signs Vital Signs: Vital Signs Temp Pulse Resp BP Pulse Ox 12/26/16 07:55 16 97 12/26/16 07:08 97.5 F L 78 16 157/81 95 12/26/16 03:45 97.4 F L 75 18 154/79 92 12/25/16 23:25 97.3 F L 72 15 134/67 95 12/25/16 20:34 18 94 12/25/16 19:26 97.6 F 78 18 133/69 94 12/25/16 15:36 14 96 12/25/16 15:21 98.8 F 72 14 119/61 96 12/25/16 11:42 18 115/70 90 12/25/16 11:28 97.6 F 73 15 115/70 94 Intake and Output 09/12/26/16 12/26/16 23:59 07:59 15:59 Intake Total 1250 / 1250 1250 / 1250 240 / 240 Output Total 1500 / 1500 425 / 425 Balance -250 / -250 825 / 825 240 / 240 Intake: IV Fluids 1250 / 1250 1250 / 1250 0.9 % Sodium Chloride 1, 1000 / 1000 1000 / 1000 000 ML @ 125 mls/hr IVC . Q8H [facility] Rx#:[id number] Cipro Premix 400 MG/200 200 / 200 200 / 200 ML 400 mg In 200 ml @ 200 mls/hr IVPB Q12H [facility] Rx# :[id number] Cleocin Premix 900 MG/50 50 / 50 50 / 50 ML 900 mg In 50 ml @ 50 mls/hr IVPB Q8HR [facility] Rx#: [id number] Oral 240 / 240 Output: Urine 1500 / 1500 425 / 425 Other: Meal Breakfast Percent of Meal Consumed 100% Weight 92.075 kg Blood Glucose* 171 122 Patient Weight 12/26/16 23:59 Weight 92.075 kg - Exam Exam: General appearance: alert awake oriented X 3. Calm and pleasant, no acute distress.. Vascular: Pedal pulses +2/4 DP/PT , No evidence of cyanosis, pallor or rubor, Edema graded at 1+/4, Skin Temperature warm, No calf pain with manual compression. capillary refill time is immediate to digits. Neurologic: Sensation intact with light touch to lefy foot. . Postop Exam: S/P Incision line well approximated with sutures intact, cellulitis has resolved , small open area to the center of the incision line measuring 0.7 cm in length x 0.2 cm in width x 0.3 cm in depth, no pus, no odor, no fluctuance. Scant amount of serous drainage observed to packing. - Lab Result Diagrams: 12/26/16 03:36 12/26/16 03:36 Labs: Abnormal lab results WBC 13.5 K/mcL (4.3-11.1) H 12/26/16 03:36 RBC 3.50 M/mcL (4.19-5.50) L 12/26/16 03:36 Hgb 11.1 g/dL (12.9-16.9) L 12/26/16 03:36 Hct 34.7 % (37.5-50.1) L 12/26/16 03:36 Neutrophils # 12.3 K/mcL (1.6-8.9) H 12/26/16 03:36 Lymphocytes # 0.5 K/mcL (0.6-4.6) L 12/26/16 03:36 Large Platelets Present (Not Present) A 12/24/16 17:30 Potassium 4.7 mEq/L (3.5-4.5) H 12/26/16 03:36 BUN 33 mg/dL (8-26) H 12/26/16 03:36 Creatinine 1.26 mg/dL (0.72-1.25) H 12/26/16 03:36 Est GFR (Non-Af Amer) 56 (> 60) L 12/26/16 03:36 Glucose 149 mg/dL (70-99) H 12/26/16 03:36 POC Glucose 171 (58-89) H 12/25/16 20:45 Calcium 8.4 mg/dL (8.6-10.8) L 12/26/16 03:36 Serum Total Protein 5.7 g/dL (6.0-8.3) L 12/26/16 03:36 Albumin 2.8 g/dL (3.5-5.0) L 12/26/16 03:36 Albumin/Globulin Ratio 1.0 (1.1-2.2) L 12/26/16 03:36 LDL Cholesterol, Calc 125 mg/dL (0-99) H 12/23/16 05:21 Microbiology, Last 48 Hours 12/23/16 17:23 Wound Culture - Final Left Foot Normal skin fernando. No apparent pathogens isolated. 12/23/16 17:23 Gram Stain - Final Left Foot Consult Discharge Plan - Plan Referrals: NONE,PCP [Primary Care Provider] - Prescriptions: Ciprofloxacin [Cipro] 500 mg PO BID #20 tablet Clindamycin HCl 300 mg PO TID #30 capsule predniSONE [PredniSONE] 10 mg PO DAILY #30 tab
== END 2016-12-26 18:00 | disposition home health service (06) | DRG 603 ==
LOC: 3BNU
PROVIDERS: ADMIT Internal Medicine; ATTEND Internal Medicine

== ENCOUNTER 2018-01-27 15:42 | Inpatient (IN) ==
[2018-01-27] MEDS ORDERED: Levofloxacin 750 MG/150 ML 750 MG/150 ML BAG IVPB ONE (15:53)
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
[2018-01-27 16:26] LABS: ABG Base Excess 10 mEq/L (-2 to 3); ABG HCO3 41 mEq/L (21-27); ABG Oxygen Saturation 100 % (95-98); ABG PCO2 91 mmHg (35-45); ABG PH 7.26 pH Units (7.32-7.45); ABG PO2 397 mmHg (85-104); ABG TCO2 44 mEq/L (20-26)
[2018-01-27] MEDS ORDERED: Haloperidol Lactate 5 MG/ML VIAL IVP ONE (16:55)
[2018-01-27] MEDS ORDERED: Naloxone 0.4 MG/ML INJ IVP PRN (16:59)
[2018-01-27] MEDS ORDERED: cefTRIAXone 1,000 MG in Water for inj. (sterile) 20 ML 10 ML IVP ONE (17:03)
[2018-01-27] MEDS ORDERED: Haloperidol Lactate 5 MG/ML VIAL IVP PRN ×2 (17:04→17:47)
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
[2018-01-27 18:21] LABS: ABG Base Excess 13 mEq/L (-2 to 3); ABG HCO3 42 mEq/L (21-27); ABG Oxygen Saturation 98 % (95-98); ABG PCO2 86 mmHg (35-45); ABG PO2 128 mmHg (85-104); ABG TCO2 45 mEq/L (20-26); Blood Gas Modality AVAP; Blood Gas PEEP 8 cm H2O; Blood Gas Respiration Rate 14; Blood Gas VT 500 cc
[2018-01-27] MEDS: Isosorbide MONOnitrate (24 HR) 30 MG TAB.ER.24H PO SCH (19:51)
[2018-01-27] MEDS: Ciprofloxacin OPTH Soln 2.5 ML BOTTLE RIGHT EYE SCH ×2 (19:51→23:21)
[2018-01-27 20:06] LABS: BUN/Creatinine Ratio 15 (6-26); Blood Urea Nitrogen 18 mg/dL (8-23); Carbon Dioxide 34 mEq/L (23-29); Chloride 94 mEq/L (98-107); Glucose 108 mg/dL (70-105); Magnesium 2.4 mg/dL (1.6-2.6); Osmolality,Calculated 278 (280-300); Phosphorous 3.9 mg/dL (2.7-4.5); Potassium 5.7 mEq/L (3.5-5.1); Sodium 133 mEq/L (136-145); eGFR For Non-African Americans 57 (> 60)
[2018-01-27] MEDS: Ipratropium/Albuterol Neb 3 ML IH SCH ×2 (20:07→23:26)
[2018-01-27 20:12] LABS: Troponin I 1.63 ng/mL (< 0.04)
[2018-01-28] MEDS: Clindamycin 300 MG in D5% in Water 50 ML IVPB SCH ×3 (00:57→16:54)
[2018-01-28] MEDS: methylPREDNISolone 125 MG/2 ML VIAL IVP SCH ×3 (00:57→16:56)
[2018-01-28] MEDS: Ipratropium/Albuterol Neb 3 ML IH SCH ×5 (03:39→21:02)
[2018-01-28] MEDS: Ciprofloxacin OPTH Soln 2.5 ML BOTTLE RIGHT EYE SCH ×6 (05:10→23:52)
[2018-01-28 05:25] LABS: ABG Base Excess 14 mEq/L (-2 to 3); ABG HCO3 43 mEq/L (21-27); ABG Oxygen Saturation 97 % (95-98); ABG PCO2 80 mmHg (35-45); ABG PH 7.34 pH Units (7.32-7.45); ABG PO2 103 mmHg (85-104); ABG TCO2 46 mEq/L (20-26); Blood Gas Modality avaps; Blood Gas PEEP 8 cm H2O; Blood Gas VT 500 cc
[2018-01-28] MEDS ORDERED: *HR* Enoxaparin 40 MG/0.4 ML SYRINGE SQ SCH (06:00)
[2018-01-28 06:03] LABS: Basophils % 0.3 %; Eosinophils % 0.1 %; Hematocrit 38.4 % (37.5-50.1); Hemoglobin 12.1 g/dL (12.9-16.9); Immature Granulocytes % 0.5 % (0-4); Lymphocytes # 0.5 K/mcL (0.6-4.6); Lymphocytes % 5.2 %; Mean Corpuscular HGB Conc 31.5 g/dL (31.6-35.5); Mean Corpuscular Hemoglobin 31.6 pg (28.0-33.3); Mean Corpuscular Volume 100.3 fL (83.0-100.0); Mean Platelet Volume 9.8 fL (9.4-12.4); Monocytes # 0.1 K/mcL (0.0-1.3); Monocytes % 0.9 %; Neutrophils # 9.5 K/mcL (1.6-8.9); Platelet Count 254 K/mcL (140-400); Red Blood Count 3.83 M/mcL (4.19-5.50); Red Cell Distribution Width 13.8 % (11.5-14.5)
[2018-01-28 06:23] LABS: BUN/Creatinine Ratio 15 (6-26); Blood Urea Nitrogen 17 mg/dL (8-23); Calcium 9.2 mg/dL (8.6-10.3); Carbon Dioxide 37 mEq/L (23-29); Chloride 94 mEq/L (98-107); Glucose 106 mg/dL (70-105); Osmolality,Calculated 282 (280-300); Potassium 5.5 mEq/L (3.5-5.1); Sodium 135 mEq/L (136-145); eGFR For Non-African Americans > 60 (> 60)
[2018-01-28 06:25] LABS: Chol/HDL Ratio 5.3 (0-4.9)
[2018-01-28] MEDS: Pantoprazole 40 MG VIAL IVP SCH (07:46)
[2018-01-28] MEDS: Cyanocobalamin (B-12) 1,000 MCG TABLET PO SCH (07:47)
[2018-01-28] MEDS: Metoprolol XL (24 HR) Succ 50 MG TAB.ER.24H PO SCH (07:47)
[2018-01-28] MEDS: cefTRIAXone 1,000 MG in Water for inj. (sterile) 20 ML 10 ML IVP SCH (07:47)
[2018-01-28] MEDS: Aspirin Enteric Coated 81 MG Tablet PO SCH (07:48)
[2018-01-28] MEDS: Levofloxacin 750 MG/150 ML 750 MG/150 ML BAG IVPB SCH (07:48)
[2018-01-28] MEDS ORDERED: *HR* Heparin 5,000 UNIT/ML VIAL IVP ONE (08:33)
[2018-01-28] MEDS ORDERED: *HR* Heparin 5,000 UNIT/ML VIAL IVP PRN ×2 (08:33)
--- NOTE | 2018-01-28 09:24 | Internal Med Progress Note ---
Hospitalist Progress Note - Encounter Date of Encounter: 01/28/18 Time of Encounter: 09:20 - Subjective Interval History: 72-year-old male admitted 01/27 for acute encephalopathy secondary to acute on chronic hypercapnic respiratory failure, aspiration pneumonia, elevated troponins. The patient is seen and evaluated at the bedside this morning He is much more awake now, alert and oriented 3 He denied ever having any chest pains, his main complaint prior to going to [place] [facility] with shortness of breath. His ABG shows improvement in PCO2 and pH. However PCO2 still elevated Troponin peaked at 2 Patient still has persistent hyperkalemia, and is otherwise stable - Exam Vitals: Temp Pulse Resp BP Pulse Ox 97.7 F 78 18 120/80 100 01/28/18 07:11 01/28/18 07:11 01/28/18 07:22 01/28/18 07:11 01/28/18 07:22 Exam: Gen: Afebrile, vital signs are stable, not in any form of distress laying flat HEENT: Moist oral mucosa, not jaundiced, not pale, not cyanotic Head: Atraumtic Chest: equal chest movement bilaterally Respiratory: Rhonchi right lower and middle lobes. Left lung is clear to auscultation, no wheezing Heart: S1/S2 no murmurs, gallops or rubs Abdomen: Flat soft and nontender no palpable organomegaly Extremities: no pedal edema. - Assessment and Plan (1) Acute and chronic respiratory failure with hypercapnia Current Visit: Yes Status: Acute Assessment and Plan: Patient with chronic hypoxic and hypercapnic respiratory failure on home BiPAP with presented to outside facility complaining of increased somnolence, was found to have hypercapnia with PCO2 of 90, continue to decompensate and transferred here for further management. ABG this morning shows improvement with PCO2 of 80, pH of 7.3 Currently on BiPAP and on nasal cannula oxygen, goal O2 sat is 92% Resume BiPAP after breakfast and repeat ABG p.m. She states he has no advance directives or living will and he is full code Remains a risk for invasive mechanical ventilation (2) Aspiration pneumonia Current Visit: Yes Status: Acute Assessment and Plan: Patient is allergic to penicillins Start patient on clindamycin, ceftriaxone and Levaquin-day 2 Follow blood cultures Continue to monitor (3) Elevated troponin Current Visit: Yes Status: Acute Assessment and Plan: Initial troponin at outside facility 1.84 Peak of 2.0 Patient continues to deny chest pain It is possible shortness of breath might have been an anginal equivalent Continue aspirin, Plavix, metoprolol, and isosorbide. patient has allergies to statins Started on low-dose ACS heparin protocol Consult cardiology follow echocardiogram (4) Conjunctivitis Current Visit: Yes Status: Acute Assessment and Plan: Ciprofloxacin eyedrops to the right eye every 4 hours (5) CKD (chronic kidney disease) stage 3, GFR 30-59 ml/min Current Visit: Yes Status: Chronic Assessment and Plan: Renal function is stable at baseline (6) COPD (chronic obstructive pulmonary disease) Current Visit: Yes Status: Acute Assessment and Plan: Patient has COPD exacerbation evidenced by diffuse wheezing with hypercapnia and chest imaging evidence of bronchiolitis. DuoNeb's scheduled every 4 Solu-Medrol IV every 6 Continue BiPAP and oxygen support Check ABG p.m. (7) Diastolic CHF, acute on chronic Current Visit: Yes Status: Acute Assessment and Plan: Patient with known CHF with preserved ejection fraction BNP in this admission 518, however patient has no pedal edema, the patient has no pulmonary edema. We will hold off Lasix for now, continue to monitor hemodynamic status Echocardiogram from 2016 noted, preserved EF with no significant valvular abnor malities. Repeat echocardiogram scheduled. (8) GERD (gastroesophageal reflux disease) Current Visit: Yes Status: Chronic Assessment and Plan: IV PPI till patient can take po (9) HLD (hyperlipidemia) Current Visit: Yes Status: Chronic Assessment and Plan: Her chart has allergies to statin Uncontrolled hyperlipidemia Consider starting fenofibrate (10) HTN (hypertension) Current Visit: Yes Status: Chronic Assessment and Plan: Continue home meds (11) Encephalopathy Current Visit: Yes Status: Resolved Assessment and Plan: Resolved Presented with Acute encephalopathy due to CO2 narcosis Haldol when necessary Fall and aspiration precautions (12) Hyperkalemia Current Visit: Yes Status: Acute Assessment and Plan: Potassium this morning 5.6 give Kayexalate by mouth 30g, regular insulin, D50 and calcium gluconate Rpt Chem pm - Time Spent with Patient Total time spent is greater than 50% in coordination of care (as documented) at patient's floor/unit and/or counseling patient: Plan of Care Discussed with: patient Internal Medicine: Result - Labs CBC & Chem 7: 01/28/18 05:31 01/28/18 05:31 Labs: Short CBC 01/28/18 Range/Units 05:31 WBC 10.2 (4.3-11.1) K/mcL Hgb 12.1 L (12.9-16.9) g/dL Hct 38.4 (37.5-50.1) % Plt Count 254 (140-400) K/mcL Neutrophils # 9.5 H (1.6-8.9) K/mcL BMP 01/27/18 01/28/18 16:59 05:31 Sodium 133 L 135 L Potassium 5.7 H 5.5 H Chloride 94 L 94 L Carbon Dioxide 34 H 37 H BUN 18 17 Creatinine 1.24 1.10 Glucose 108 H 106 H Calcium 9.0 9.2 Cardiac Enzymes 01/27/18 01/27/18 01/28/18 Range/Units 16:59 22:43 05:31 Troponin I 1.63 H* 2.05 H* 1.54 H* (< 0.04) ng/mL - ABG Interpretation ABG results: ABG ABG pH 7.34 pH Units (7.32-7.45) 01/28/18 05:23 ABG pCO2 80 mmHg (35-45) H* 01/28/18 05:23 ABG pO2 103 mmHg (85-104) 01/28/18 05:23 ABG O2 Saturation 97 % (95-98) 01/28/18 05:23 Consult Discharge Plan - Plan Referrals: NONE,PCP [Primary Care Provider] - (2) Aspiration pneumonia Qualifiers: Aspiration pneumonia type: unspecified Laterality: unspecified laterality Lung location: unspecified part of lung Qualified Code(s): J69.0 - Pneumonitis due to inhalation of food and vomit (4) Conjunctivitis Qualifiers: Conjunctivitis type: acute Acute conjunctivitis type: bacterial Laterality: right Qualified Code(s): H10.31 - Unspecified acute conjunctivitis, right eye (6) COPD (chronic obstructive pulmonary disease) Qualifiers: COPD type: COPD with acute exacerbation Qualified Code(s): J44.1 - Chronic obstructive pulmonary disease with (acute) exacerbation (8) GERD (gastroesophageal reflux disease) Qualifiers: Esophagitis presence: without esophagitis Qualified Code(s): K21.9 - Gastro- esophageal reflux disease without esophagitis (9) HLD (hyperlipidemia) Qualifiers: Hyperlipidemia type: unspecified Qualified Code(s): E78.5 - Hyperlipidemia, unspecified (10) HTN (hypertension) Qualifiers: Hypertension type: essential hypertension Qualified Code(s): I10 - Essential (primary) hypertension
[2018-01-28] MEDS ORDERED: *HR* Dextrose 50 % in Water (Vial) 50 ML VIAL IVP ONE (09:30)
[2018-01-28] MEDS ORDERED: Insulin Human Regular 10 UNIT in 0.9 % Sodium Chloride 10 ML IV ONE (09:30)
[2018-01-28 10:42] LABS: Heparin anti-factor XA UFH 0.33 IU/mL (0.30-0.70); Prothrombin Time 11.5 Seconds (9.4-12.1)
[2018-01-28] MEDS: Heparin 25,000 UNIT/500 ML D5W 25,000 UNIT/500 ML BAG IVC SCH (11:34)
[2018-01-28] MEDS ORDERED: *HR* Dextrose 50 % in Water (Syg) 50 ML SYRINGE IVP ONE (12:00)
--- NOTE | 2018-01-28 13:19 | Cardiology Consult Note ---
<RamirezShariAlissa J - Last Filed: 01/28/18 13:16> Date of Encounter: 01/28/18 Time of Encounter: 12:30 Assessment and Plan (1) Acute and chronic respiratory failure with hypercapnia Current Visit: Yes Status: Acute Per cardiology: -Admitted with respiratory failure and pneumonia. -On Bipap currently -Management per primary service. (2) Elevated troponin Current Visit: Yes Status: Acute Per cardiology: -Troponins 1.84, 1.63, 2.05, 1.54 in the setting of PNA, respiratory failure. -Deneis chest pain. -no acute ischemic ECG changes. -[facility] 1991 without interevention, per patient. -Echocardiogram 03/14/2016: EF 60%. Normal LV, RV size and function. Mild basal inferior hypokinesis. No VHD. No PHTN. -Pharmacological nuclear stress test 07/26/2012: Negative for ischemia. -TTE pending. -ON asa, heparin drip, BB. Intolerant to statins. -Suspect NSTEMI I in the setting of PNA, respiratory failure. -Further recommendations pending TTE. Discussion w patient/family: The assessment and plan as outlined above was discussed with the patient who expressed understanding and agreement. All questions were answered. Thank you for involving us in the care of your patient. Please call with any questions. Discussed and reviewed with Dr.John Plata. History of Present Illness Consult date: 01/28/18 Requesting physician: Kendrick Schneider Consult reason: elevated troponin Chief complaint: shrotness of breath History of present illness: Mr. Vickers is a 72 year old male with a relevant past medical history of COPD, HTN, CAD remote [facility] 1992 without intervention, MYRIAM, HLD, CHF who presented to [facility] with complaints of generalized weakness. Patient was noted to be hypoxic and hypercapnic and was transferred to [facility] for further evaluation. Cardiology has been consulted due to elevated troponins. Patient denies chest pain. Today, patient reports shortness of breath is much improved. Past Med Surg Social Fam HX - Past Medical History Attestation: Yes The following information was validated with the patient. Source: patient, old records reviewed Medical history: arthritis, asthma, CHF, COPD, coronary artery disease, GERD, hyperlipidemia, hypertension, myocardial infarction, renal disease, other Additional medical history: MYRIAM non compliant with c pap. C-Diff Psychiatric history: no psych history - Past Surgical History Surgical History: cataract, orthopedic, other, tonsilectomy, other Additional surgical history: ORIF right wrist repair of double fx of right arm Clavicle repair - Social History Smoking Status: Current some day smoker Smokeless Tobacco Status: No Alcohol use: none Drug use: none, other - Family History Father Family Member Ethnicity: Non- Living Status: Hx Family Cardiac Disorders: Yes (TN, CHF, HTN, Stroke) Hx Family Endocrine Disorder: Yes (DM) Mother Family Member Ethnicity: Non- Living Status: Hx Family Cardiac Disorders: Yes (Stroke, CHF) Brother Family Member Ethnicity: Non- Living Status: Hx Family Cardiac Disorders: Yes (CHF) Hx Family Respiratory Disorders: Yes (COPD, Mesothelioma) Medications and Allergies Albuterol Neb [Proventil Neb] 2.5 mg IH [id number] PRN #1 inh 12/12/17 [Rx] Albuterol Sulfate [Proair Hfa] 2 puff IH Q4H PRN #1 hfa.aer.ad 12/12/17 [Rx] Budesonide/Formoterol 160/4.5 [Symbicort 160/4.5] 2 puff IH BIDR #1 inhaler 12/12/17 [Rx] Clopidogrel [Plavix] 75 mg PO DAILY 30 Days #30 tablet 12/12/17 [Rx] Cyanocobalamin (Vitamin B-12) [Vitamin B-12] 1,000 mcg PO DAILY #30 tablet 12/12/17 [Rx] Isosorbide MONOnitrate (24 HR) [Imdur] 60 mg PO HS #30 tab.er.24h 12/12/17 [Rx] Metoprolol XL (24 HR) Succ [Toprol Xl] 25 mg PO DAILY 365 Days tab.er.24h 12/12/17 [Rx] Oxygen 2 l NS AD #1 each 12/12/17 [Rx] Tiotropium [Spiriva] 18 mcg IH 0700 #1 inh 12/12/17 [Rx] traZODone [TraZODone] 50 mg PO HS #30 tablet 12/12/17 [Rx] Cetirizine HCl [Zyrtec] 10 mg PO DAILY 01/23/18 [History] Hydrocodone/Acetaminophen [Hydrocodon-Acetaminophn 10-325] 1 each PO Q6H PRN 01/23/18 [History] Allergy/AdvReac Type Severity Reaction Status Date / Time Erythromycin Base Allergy Hives Verified 11/24/16 23:44 Penicillins [PCN] Allergy Hives Verified 11/24/16 23:44 [id number] Reductase Allergy Itching Verified 01/23/18 12:27 Inhibitor [Statins] All Systems Review: The remainder of the systems were reviewed and are negative - Constitutional Constitutional: weakness - Cardiovascular Cardiovascular: as per HPI Physical Examination Vital Signs, Last 4 Hours Temp Pulse Resp BP Pulse Ox 01/28/18 11:54 98.0 F 72 18 130/80 97 01/28/18 11:16 22 94 01/28/18 10:51 83 General: Conversant, No Apparent Distress HEENT: Atraumatic, Normocephaly, Mucus Membranes Moist Neck: No JVD, Normal carotid pulses Cardiac: Reg Rate and Rhythm, Normal S1 and S2, No Murmur Lungs: Other (Lung sounds diminished throughout. ) Neuro: Alert and responsive, No focal deficits noted Abdomen: Soft, Non-Tender Skin: No rashes noted on visualized skin Musculoskeletal: No Chest Wall Tenderness Extremities: No Clubbing, No Cyanosis, No Edema, Normal Pulses Results 01/28/18 05:31 01/28/18 05:31 Lab Results Active Medications Albuterol/Ipratropium (Duoneb) 3 ml IH [id number] KAROL Stop: 07/29/18 20:01 Last Admin: 01/28/18 11:16 Dose: 3 ml Aspirin (Aspirin Ec) 81 mg PO DAILY KAROL Stop: 07/30/18 09:01 Last Admin: 01/28/18 07:48 Dose: 81 mg Ciprofloxacin HCl (Ciloxan Opth Soln) 2 drop RIGHT EYE Q4HR KAROL Stop: 07/29/18 20:01 Last Admin: 01/28/18 11:33 Dose: Not Given Clopidogrel Bisulfate (Plavix) 75 mg PO DAILY KAROL Stop: 07/30/18 09:01 Last Admin: 01/28/18 07:48 Dose: 75 mg Cyanocobalamin (Vitamin B12) 1,000 mcg PO DAILY KAROL Stop: 07/30/18 09:01 Last Admin: 01/28/18 07:47 Dose: 1,000 mcg Haloperidol Lactate (Haldol) 1 mg IVP Q8HR PRN PRN Reason: Agitation Stop: 07/29/18 17:05 Heparin Sodium (Porcine) (Heparin) 4,000 unit IVP Q6HR PRN PRN Reason: SEE COMMENTS Stop: 07/30/18 08:34 Heparin Sodium (Porcine) (Heparin) 2,000 unit IVP Q6H PRN PRN Reason: SEE COMMENTS Stop: 07/30/18 08:34 Ceftriaxone Sodium 1,000 mg/ (Sterile Water) 10 mls @ 600 mls/hr IVP DAILY [facility] Stop: 07/30/18 09:01 Last Admin: 01/28/18 07:47 Dose: 600 mls/hr Clindamycin HCl 300 mg/ (Dextrose) 52 mls @ 50 mls/hr IVPB Q8HR [facility] Stop: 07/30/18 00:01 Last Admin: 01/28/18 08:22 Dose: 50 mls/hr Levofloxacin/Dextrose (Levaquin Premix 750mg/150 Ml) 750 mg in 150 mls @ 100 mls/hr IVPB DAILY [facility]; Protocol Stop: 07/30/18 09:01 Last Admin: 01/28/18 07:48 Dose: 100 mls/hr Heparin Sodium/Dextrose (Heparin 25,000 Unit/500 Ml D5w) 25,000 unit in 500 mls @ 21.192 mls/hr IVC .[id number] [facility]; Protocol Stop: 07/30/18 08:46 Last Admin: 01/28/18 11:34 Dose: 12 unit/kg/hr, 21.192 mls/hr Isosorbide Mononitrate (Imdur) 60 mg PO HS [facility] Stop: 07/29/18 21:01 Last Admin: 01/27/18 19:51 Dose: Not Given Methylprednisolone (Solu-Medrol) 60 mg IVP Q8HR [facility] Stop: 07/30/18 00:01 Last Admin: 01/28/18 07:46 Dose: 60 mg Metoprolol Succinate (Toprol Xl) 25 mg PO DAILY [facility] Stop: 07/30/18 09:01 Last Admin: 01/28/18 07:47 Dose: 25 mg Naloxone HCl (Narcan) 0.4 mg IVP Q2MIN PRN PRN Reason: SEE COMMENTS Stop: 07/29/18 17:00 Pantoprazole Sodium (Protonix) 40 mg IVP DAILY [facility] Stop: 07/30/18 09:01 Last Admin: 01/28/18 07:46 Dose: 40 mg Laboratory Tests 01/27/18 01/27/18 01/27/18 11:24 16:59 22:43 Troponin I 1.84 H* 1.63 H* 2.05 H* 01/28/18 05:31 Troponin I 1.54 H* - Imaging and Cardiology Chest Xray: report reviewed Stress Test: report reviewed - EKG Interpretation EKG results cardiology: personally reviewed (ECG with SR, HR 74. Non-specific T wave abnormalities noted, similar to previous ECGs), other (Telemetry reviewed with average HR previous 12 hours noted to be 77, SR. PVCs and PACs noted.) Consult Discharge Plan - Plan Referrals: NONE,PCP [Primary Care Provider] - <Rivas Plata - Last Filed: 01/28/18 13:39> - Attending Attestation I have personally performed a face to face evaluation on this patient. I have reviewed and agree with the care plan. History and Exam by me shows: Consulted for elevated troponin in setting of respiratory failure and pneumonia. At this point seems like type 2 TN, secondary to respiratory failure. Assessment and Plan Discussion w patient/family: The assessment and plan as outlined above was discussed with the patient and/or family members who expressed understanding and agreement. All questions were answered. Thank you for involving us in the care of your patient. Please call with any questions. History of Present Illness History of present illness: Mr. Vickers is a 72 year old male All Systems Review: The remainder of the systems were reviewed and are negative Physical Examination Vital Signs, Last 4 Hours Temp Pulse Resp BP Pulse Ox 01/28/18 11:54 98.0 F 72 18 130/80 97 01/28/18 11:16 22 94 01/28/18 10:51 83 Results 01/28/18 05:31 01/28/18 05:31 Lab Results 01/27/18 01/27/18 01/27/18 16:59 17:00 22:43 WBC Hgb Hct Plt Count INR Sodium 133 L Potassium 5.7 H Chloride 94 L Carbon Dioxide 34 H BUN 18 Creatinine 1.24 Glucose 108 H Calcium 9.0 Magnesium 2.4 Troponin I 1.63 H* 2.05 H* B-Natriuretic Peptide 419 H 01/28/18 01/28/18 01/28/18 05:31 05:31 05:31 WBC 10.2 Hgb 12.1 L Hct 38.4 Plt Count 254 INR Sodium 135 L Potassium 5.5 H Chloride 94 L Carbon Dioxide 37 H BUN 17 Creatinine 1.10 Glucose 106 H Calcium 9.2 Magnesium Troponin I 1.54 H* B-Natriuretic Peptide 01/28/18 10:03 WBC Hgb Hct Plt Count INR 1.0 Sodium Potassium Chloride Carbon Dioxide BUN Creatinine Glucose Calcium Magnesium Troponin I B-Natriuretic Peptide
[2018-01-28 13:24] LABS: ABG Base Excess 11 mEq/L (-2 to 3); ABG HCO3 37 mEq/L (21-27); ABG Oxygen Saturation 99 % (95-98); ABG PCO2 57 mmHg (35-45); ABG PH 7.42 pH Units (7.32-7.45); ABG PO2 138 mmHg (85-104); ABG TCO2 39 mEq/L (20-26); Blood Gas VT 500 cc
[2018-01-28] MEDS: Isosorbide MONOnitrate (24 HR) 30 MG TAB.ER.24H PO SCH (21:03)
[2018-01-29] MEDS: Clindamycin 300 MG in D5% in Water 50 ML IVPB SCH ×2 (00:02→10:20)
[2018-01-29 01:11] LABS: Basophils % 0.1 %; Eosinophils % 0.1 %; Hematocrit 33.2 % (37.5-50.1); Hemoglobin 10.8 g/dL (12.9-16.9); Immature Granulocytes % 0.7 % (0-4); Lymphocytes # 0.6 K/mcL (0.6-4.6); Lymphocytes % 7.7 %; Mean Corpuscular HGB Conc 32.5 g/dL (31.6-35.5); Mean Corpuscular Hemoglobin 31.5 pg (28.0-33.3); Mean Corpuscular Volume 96.8 fL (83.0-100.0); Monocytes # 0.2 K/mcL (0.0-1.3); Monocytes % 2.3 %; Neutrophils # 7.3 K/mcL (1.6-8.9); Platelet Count 267 K/mcL (140-400); Red Blood Count 3.43 M/mcL (4.19-5.50); Red Cell Distribution Width 13.4 % (11.5-14.5); Segmented Neutrophils % 89.1 %
[2018-01-29] MEDS: Ipratropium/Albuterol Neb 3 ML IH SCH ×6 (01:11→21:00)
[2018-01-29 01:26] LABS: BUN/Creatinine Ratio 18 (6-26); Blood Urea Nitrogen 21 mg/dL (8-23); Calcium 9.2 mg/dL (8.6-10.3); Carbon Dioxide 35 mEq/L (23-29); Chloride 94 mEq/L (98-107); Glucose 160 mg/dL (70-105); Osmolality,Calculated 284 (280-300); Potassium 4.3 mEq/L (3.5-5.1); Sodium 134 mEq/L (136-145); eGFR For Non-African Americans > 60 (> 60)
[2018-01-29] MEDS: Ciprofloxacin OPTH Soln 2.5 ML BOTTLE RIGHT EYE SCH (03:35)
[2018-01-29 04:49] LABS: ABG Base Excess 11 mEq/L (-2 to 3); ABG HCO3 35 mEq/L (21-27); ABG Oxygen Saturation 94 % (95-98); ABG PCO2 46 mmHg (35-45); ABG PH 7.49 pH Units (7.32-7.45); ABG PO2 64 mmHg (85-104); ABG TCO2 37 mEq/L (20-26)
[2018-01-29] MEDS: cefTRIAXone 1,000 MG in Water for inj. (sterile) 20 ML 10 ML IVP SCH (08:07)
[2018-01-29] MEDS: Cyanocobalamin (B-12) 1,000 MCG TABLET PO SCH (08:13)
[2018-01-29] MEDS: methylPREDNISolone 125 MG/2 ML VIAL IVP SCH ×2 (08:14)
[2018-01-29] MEDS: Pantoprazole 40 MG VIAL IVP SCH (08:14)
[2018-01-29] MEDS: Aspirin Enteric Coated 81 MG Tablet PO SCH (08:15)
[2018-01-29] MEDS: Levofloxacin 750 MG/150 ML 750 MG/150 ML BAG IVPB SCH (08:16)
[2018-01-29] MEDS: Metoprolol XL (24 HR) Succ 50 MG TAB.ER.24H PO SCH (08:18)
[2018-01-29] MEDS: Ciprofloxacin HCL Soln 5 ML BOTTLE RIGHT EYE SCH ×4 (08:43→20:52)
--- NOTE | 2018-01-29 09:32 | Internal Med Progress Note ---
Hospitalist Progress Note - Encounter Date of Encounter: 01/29/18 Time of Encounter: 09:31 - Subjective Interval History: 72-year-old male admitted 01/27 for acute encephalopathy secondary to acute on chronic hypercapnic respiratory failure, aspiration pneumonia, elevated troponins. The patient is seen and evaluated at the bedside this morning He is much more awake now, alert and oriented 3 He is much more improved,, encephalopathy resolved, no chest pain. Troponin peaked at 2 Awaiting cardiology evaluation for elevated troponin. Echocardiogram is pending. - Exam Vitals: Temp Pulse Resp BP Pulse Ox 97.8 F 71 18 143/65 93 01/29/18 07:10 01/29/18 07:10 01/29/18 07:10 01/29/18 07:10 01/29/18 07:10 Exam: Gen: Afebrile, vital signs are stable, not in any form of distress laying flat HEENT: Moist oral mucosa, not jaundiced, not pale, not cyanotic Head: Atraumtic Chest: equal chest movement bilaterally Respiratory: Rhonchi right lower and middle lobes. Left lung is clear to auscultation, no wheezing Heart: S1/S2 no murmurs, gallops or rubs Abdomen: Flat soft and nontender no palpable organomegaly Extremities: no pedal edema. - Assessment and Plan (1) Acute and chronic respiratory failure with hypercapnia Current Visit: Yes Status: Acute Assessment and Plan: Patient with chronic hypoxic and hypercapnic respiratory failure on home BiPAP with presented to outside facility complaining of increased somnolence, was found to have hypercapnia with PCO2 of 90, continue to decompensate and transferred here for further management. ABG this morning shows improvement with PCO2 of 46, pH of 7.49 Patient encouraged to be compliant with home oxygen and home BiPAP. Continue BiPAP when necessary (2) Aspiration pneumonia Current Visit: Yes Status: Acute Assessment and Plan: Patient is allergic to penicillins Start patient on clindamycin, ceftriaxone and Levaquin-day 3 Continue to monitor (3) Elevated troponin Current Visit: Yes Status: Acute Assessment and Plan: Initial troponin at outside facility 1.84 Peak of 2.0 Patient continues to deny chest pain It is possible shortness of breath might have been an anginal equivalent Continue aspirin, Plavix, metoprolol, and isosorbide. patient has allergies to statins Continue low-dose ACS heparin protocol Patient has no chest pain Cardiology evaluation is pending an echocardiogram is pending (4) Conjunctivitis Current Visit: Yes Status: Acute Assessment and Plan: ofloxacin eyedrops to the right eye every 4 hours (5) CKD (chronic kidney disease) stage 3, GFR 30-59 ml/min Current Visit: Yes Status: Chronic Assessment and Plan: Renal function is stable at baseline (6) COPD (chronic obstructive pulmonary disease) Current Visit: Yes Status: Acute Assessment and Plan: Patient has COPD exacerbation evidenced by diffuse wheezing with hypercapnia and chest imaging evidence of bronchiolitis. DuoNeb's scheduled every 4 Discontinue Solu-Medrol , changed to prednisone 40 mg by mouth daily Continue BiPAP and oxygen support ABG is acceptable (7) Diastolic CHF, acute on chronic Current Visit: Yes Status: Acute Assessment and Plan: Patient with known CHF with preserved ejection fraction BNP in this admission 518, however patient has no pedal edema, the patient has no pulmonary edema. We will hold off Lasix for now, continue to monitor hemodynamic status Echocardiogram from 2016 noted, preserved EF with no significant valvular abnormalities. Repeat echocardiogram scheduled. (8) GERD (gastroesophageal reflux disease) Current Visit: Yes Status: Chronic Assessment and Plan: Change to oral ppi (9) HLD (hyperlipidemia) Current Visit: Yes Status: Chronic Assessment and Plan: Her chart has allergies to statin Uncontrolled hyperlipidemia Start fenofibrate (10) HTN (hypertension) Current Visit: Yes Status: Chronic Assessment and Plan: Continue home meds (11) Encephalopathy Current Visit: Yes Status: Resolved Assessment and Plan: Resolved Presented with Acute encephalopathy due to CO2 narcosis Discontinue Haldol Fall and aspiration precautions (12) Hyperkalemia Current Visit: Yes Status: Resolved Assessment and Plan: Resolved, K this a.m 4.8 - Time Spent with Patient Total time spent is greater than 50% in coordination of care (as documented) at patient's floor/unit and/or counseling patient: Plan of Care Discussed with: patient Internal Medicine: Result - Labs CBC & Chem 7: 01/29/18 00:50 01/29/18 00:50 Labs: Short CBC 01/29/18 Range/Units 00:50 WBC 8.2 (4.3-11.1) K/mcL Hgb 10.8 L (12.9-16.9) g/dL Hct 33.2 L (37.5-50.1) % Plt Count 267 (140-400) K/mcL Neutrophils # 7.3 (1.6-8.9) K/mcL BMP 01/29/18 00:50 Sodium 134 L Potassium 4.3 Chloride 94 L Carbon Dioxide 35 H BUN 21 Creatinine 1.15 Glucose 160 H Calcium 9.2 - ABG Interpretation ABG results: ABG ABG pH 7.49 pH Units (7.32-7.45) H 01/29/18 04:46 ABG pCO2 46 mmHg (35-45) H 01/29/18 04:46 ABG pO2 64 mmHg (85-104) L 01/29/18 04:46 ABG O2 Saturation 94 % (95-98) L 01/29/18 04:46 PT/INR, D-dimer PT 11.5 Seconds (9.4-12.1) 01/28/18 10:03 Consult Discharge Plan - Plan Referrals: NONE,PCP [Primary Care Provider] - (2) Aspiration pneumonia Qualifiers: Aspiration pneumonia type: unspecified Laterality: unspecified laterality Lung location: unspecified part of lung Qualified Code(s): J69.0 - Pneumonitis due to inhalation of food and vomit (4) Conjunctivitis Qualifiers: Conjunctivitis type: acute Acute conjunctivitis type: bacterial Laterality: right Qualified Code(s): H10.31 - Unspecified acute conjunctivitis, right eye (6) COPD (chronic obstructive pulmonary disease) Qualifiers: COPD type: COPD with acute exacerbation Qualified Code(s): J44.1 - Chronic obstructive pulmonary disease with (acute) exacerbation (8) GERD (gastroesophageal reflux disease) Qualifiers: Esophagitis presence: without esophagitis Qualified Code(s): K21.9 - Gastro-esophageal reflux disease without esophagitis (9) HLD (hyperlipidemia) Qualifiers: Hyperlipidemia type: unspecified Qualified Code(s): E78.5 - Hyperlipidemia, unspecified (10) HTN (hypertension) Qualifiers: Hypertension type: essential hypertension Qualified Code(s): I10 - Essential (primary) hypertension
--- NOTE | 2018-01-29 10:12 | Cardiology Progress Note ---
Date of Encounter: 01/29/18 Time of Encounter: 08:30 Assessment and Plan (1) Acute and chronic respiratory failure with hypercapnia Current Visit: Yes Status: Acute Per cardiology: -Admitted with respiratory failure and pneumonia. -Management per primary service. (2) Elevated troponin Current Visit: Yes Status: Acute Per cardiology: -Troponins 1.84, 1.63, 2.05, 1.54 in the setting of PNA, respiratory failure. -Deneis chest pain. -no acute ischemic ECG changes. -[facility] 1991 without interevention, per patient. -Echocardiogram 03/14/2016: EF 60%. Normal LV, RV size and function. Mild basal inferior hypokinesis. No VHD. No PHTN. -Pharmacological nuclear stress test 07/26/2012: Negative for ischemia. -TTE pending. -ON asa, heparin drip, BB. Intolerant to statins. -Suspect demand ischemia in the setting of PNA, respiratory failure. Medical management recommended. -Further recommendations pending TTE. -IF no significant findings per TTE, ok to stop heparin drip and anticipate cardiology sign off. Will arrange outpatient follow up. Discussion w patient/family: The assessment and plan as outlined above was discussed with the patient who expressed understanding and agreement. All questions were answered. Thank you for involving us in the care of your patient. Please call with any questions. Discussed and reviewed with . Subjective Principal diagnosis: PNA, respiratory failure. Interval history: Patient denies chest pain, reports breathing is much improved. Currently off Bipap and on nasal cannula. Objective Vital Signs, Last 4 Hours Temp Pulse Resp BP Pulse Ox 01/29/18 07:10 97.8 F 71 18 143/65 93 General: Conversant, No Apparent Distress HEENT: Atraumatic, Normocephaly, Mucus Membranes Moist Neck: No JVD, Normal carotid pulses Cardiac: Reg Rate and Rhythm, Normal S1 and S2, No Murmur Lungs: Other (Lung sounds diminished throughout. ) Neuro: Alert and responsive, No focal deficits noted Abdomen: Soft, Non-Tender Skin: No rashes noted on visualized skin Musculoskeletal: No Chest Wall Tenderness Extremities: No Clubbing, No Cyanosis, No Edema, Normal Pulses Results 01/29/18 00:50 01/29/18 00:50 Lab Results Active Medications Albuterol/Ipratropium (Duoneb) 3 ml IH [id number] [facility] Stop: 07/29/18 20:01 Last Admin: 01/29/18 07:32 Dose: 3 ml Aspirin (Aspirin Ec) 81 mg PO DAILY [facility] Stop: 07/30/18 09:01 Last Admin: 01/29/18 08:15 Dose: 81 mg Ciprofloxacin HCl (Ciloxan Opth Soln) 2 drop RIGHT EYE Q4HR [facility] Stop: 07/29/18 20:01 Last Admin: 01/29/18 08:43 Dose: 2 drop Clopidogrel Bisulfate (Plavix) 75 mg PO DAILY [facility] Stop: 07/30/18 09:01 Last Admin: 01/29/18 08:13 Dose: 75 mg Cyanocobalamin (Vitamin B12) 1,000 mcg PO DAILY [facility] Stop: 07/30/18 09:01 Last Admin: 01/29/18 08:13 Dose: 1,000 mcg Fenofibrate (Tricor) 108 mg PO DAILY [facility]; Protocol Stop: 07/31/18 09:46 Heparin Sodium (Porcine) (Heparin) 4,000 unit IVP Q6HR PRN PRN Reason: SEE COMMENTS Stop: 07/30/18 08:34 Heparin Sodium (Porcine) (Heparin) 2,000 unit IVP Q6H PRN PRN Reason: SEE COMMENTS Stop: 07/30/18 08:34 Ceftriaxone Sodium 1,000 mg/ (Sterile Water) 10 mls @ 600 mls/hr IVP DAILY [facility] Stop: 07/30/18 09:01 Last Infusion: 01/29/18 08:28 Dose: Infused Clindamycin HCl 300 mg/ (Dextrose) 52 mls @ 50 mls/hr IVPB Q8HR [facility] Stop: 07/30/18 00:01 Last Infusion: 01/29/18 01:25 Dose: Infused Levofloxacin/Dextrose (Levaquin Premix 750mg/150 Ml) 750 mg in 150 mls @ 100 mls/hr IVPB DAILY [facility]; Protocol Stop: 07/30/18 09:01 Last Admin: 01/29/18 08:16 Dose: 100 mls/hr Heparin Sodium/Dextrose (Heparin 25,000 Unit/500 Ml D5w) 25,000 unit in 500 mls @ 21.192 mls/hr IVC .[id number] [facility]; Protocol Stop: 04/22/19 08:46 Last Titration: 01/29/18 00:50 Dose: 12 unit/kg/hr, 21.2 mls/hr Isosorbide Mononitrate (Imdur) 60 mg PO HS [facility] Stop: 07/29/18 21:01 Last Admin: 01/28/18 21:03 Dose: 60 mg Metoprolol Succinate (Toprol Xl) 25 mg PO DAILY [facility] Stop: 07/30/18 09:01 Last Admin: 01/29/18 08:18 Dose: 25 mg Naloxone HCl (Narcan) 0.4 mg IVP Q2MIN PRN PRN Reason: SEE COMMENTS Stop: 07/29/18 17:00 Omeprazole (Prilosec) 40 mg PO 0730 [facility]; Protocol Stop: 08/01/18 07:31 Prednisone (Prednisone) 40 mg PO DAILY [facility] Stop: 08/01/18 09:01 Laboratory Tests 01/29/18 01/29/18 00:50 00:50 Hgb 10.8 L Creatinine 1.15 - Imaging and Cardiology Chest Xray: report reviewed Echo: pending - EKG Interpretation EKG results cardiology: other (Telemetry reviewed with average HR previous 12 hours noted to be 69, SR. PVCs, couplets, PACS noted.) Consult Discharge Plan - Plan Referrals: Clifford Montero CNP [Advanced Practice Nurse] - (Office will call patient at home with follow up appointment) Brenda Moser CNP [Advanced Practice Nurse] - 02/01/18 1:45 pm
[2018-01-29] MEDS: Heparin 25,000 UNIT/500 ML D5W 25,000 UNIT/500 ML BAG IVC SCH (10:47)
[2018-01-29] MEDS: Fenofibrate 54 MG TABLET PO SCH (12:24)
[2018-01-29] MEDS: Isosorbide MONOnitrate (24 HR) 30 MG TAB.ER.24H PO SCH (20:52)
[2018-01-29] MEDS: *HR* HYDROcodone/Acet 10/325 mg TABLET PO PRN (20:52)
[2018-01-30] MEDS: Ipratropium/Albuterol Neb 3 ML IH SCH ×7 (00:21→23:52)
[2018-01-30] MEDS: Ciprofloxacin HCL Soln 5 ML BOTTLE RIGHT EYE SCH ×6 (01:35→21:55)
[2018-01-30] MEDS: Metoprolol XL (24 HR) Succ 50 MG TAB.ER.24H PO SCH (08:00)
[2018-01-30] MEDS: Cyanocobalamin (B-12) 1,000 MCG TABLET PO SCH (08:00)
[2018-01-30] MEDS: Fenofibrate 54 MG TABLET PO SCH (08:00)
[2018-01-30] MEDS: levoFLOXacin 750 MG TABLET PO SCH (08:00)
[2018-01-30] MEDS: Aspirin Enteric Coated 81 MG Tablet PO SCH (08:00)
[2018-01-30] MEDS: predniSONE 20 MG TABLET PO SCH (08:08)
[2018-01-30] MEDS: Heparin 25,000 UNIT/500 ML D5W 25,000 UNIT/500 ML BAG IVC SCH (09:31)
--- NOTE | 2018-01-30 12:29 | Cardiology Progress Note ---
Date of Encounter: 01/30/18 Time of Encounter: 08:30 Assessment and Plan (1) Acute and chronic respiratory failure with hypercapnia Current Visit: Yes Status: Acute Per cardiology: -Admitted with respiratory failure and pneumonia. -Management per primary service. (2) Elevated troponin Current Visit: Yes Status: Acute Per cardiology: -Troponins 1.84, 1.63, 2.05, 1.54 in the setting of PNA, respiratory failure. -Deneis chest pain. -no acute ischemic ECG changes. -[facility] 1991 without interevention, per patient. -Echocardiogram 03/14/2016: EF 60%. Normal LV, RV size and function. Mild basal inferior hypokinesis. No VHD. No PHTN. -TTE this admission with LVEF 55%, basal inferior wall hypokinesis. -Pharmacological nuclear stress test 07/26/2012: Negative for ischemia. -ON asa, heparin drip, BB. Intolerant to statins. -Suspect demand ischemia in the setting of PNA, respiratory failure, however did discuss potential LHC with patient. Patient does not wish to proceed with LHC at this time. Patient educated to return to ER for any chest pain, worsening s ymptoms. -TTE with LVEF preserved, mild segmental wall motion abnormalities noted, similar to baseline. -Continue asa, plavix, BB. INtolerant to statins. Will stop heparin drip. -Cardiology will sign off and will follow in outpatient setting, will set up. Consider outpatient ischemic evaluation. Discussion w patient/family: The assessment and plan as outlined above was discussed with the patient who expressed understanding and agreement. All questions were answered. Thank you for involving us in the care of your patient. Please call with any questions. Discussed and reviewed with . Subjective Principal diagnosis: PNA, respiratory failure. Interval history: Patient denies chest pain, reports breathing is much improved. Currently on nasal cannula. Denies complaints. Objective Vital Signs, Last 4 Hours Temp Pulse Resp BP Pulse Ox 01/30/18 11:59 98.0 F 76 18 151/77 98 01/30/18 11:38 16 97 General: Conversant, No Apparent Distress HEENT: Atraumatic, Normocephaly, Mucus Membranes Moist Neck: No JVD, Normal carotid pulses Cardiac: Reg Rate and Rhythm, Normal S1 and S2, No Murmur Lungs: Other (Lung sounds diminished throughout) Neuro: Alert and responsive, No focal deficits noted Abdomen: Soft, Non-Tender Skin: No rashes noted on visualized skin Musculoskeletal: No Chest Wall Tenderness Extremities: No Clubbing, No Cyanosis, No Edema, Normal Pulses Results 01/29/18 00:50 01/29/18 00:50 Impressions Echocardiogram 01/29/18 08:06 Impressions: Technically sub-optimal due to poor echocardiographic windows. LVEF 55%. Mildly dilated left ventricle. Mild segmental left ventricular systolic dysfunction. Mild left ventricular diastolic dysfunction. Normal right ventricular structure and function. Aortic valve not well visualized. Mild aortic sclerosis suggested by Doppler. Mean gradient 10 mmHg. No evidence of pulmonary hypertension. Active Medications Hydrocodone Bitart/Acetaminophen ([place] 10-325 Mg) 1 each PO Q6H PRN PRN Reason: Pain Stop: 07/31/18 20:24 Last Admin: 01/29/18 20:52 Dose: 1 each Albuterol/Ipratropium (Duoneb) 3 ml IH [id number] [facility] Stop: 07/29/18 20:01 Last Admin: 01/30/18 11:38 Dose: 3 ml Aspirin (Aspirin Ec) 81 mg PO DAILY [facility] Stop: 07/30/18 09:01 Last Admin: 01/30/18 08:00 Dose: 81 mg Ciprofloxacin HCl (Ciloxan Opth Soln) 2 drop RIGHT EYE Q4HR [facility] Stop: 07/29/18 20:01 Last Admin: 01/30/18 12:22 Dose: 2 drop Clopidogrel Bisulfate (Plavix) 75 mg PO DAILY [facility] Stop: 07/30/18 09:01 Last Admin: 01/30/18 08:00 Dose: 75 mg Cyanocobalamin (Vitamin B12) 1,000 mcg PO DAILY [facility] Stop: 07/30/18 09:01 Last Admin: 01/30/18 08:00 Dose: 1,000 mcg Fenofibrate (Tricor) 108 mg PO DAILY [facility]; Protocol Stop: 07/31/18 09:46 Last Admin: 01/30/18 08:00 Dose: 108 mg Heparin Sodium (Porcine) (Heparin) 4,000 unit IVP Q6HR PRN PRN Reason: SEE COMMENTS Stop: 07/30/18 08:34 Heparin Sodium (Porcine) (Heparin) 2,000 unit IVP Q6H PRN PRN Reason: SEE COMMENTS Stop: 07/30/18 08:34 Heparin Sodium/Dextrose (Heparin 25,000 Unit/500 Ml D5w) 25,000 unit in 500 mls @ 21.192 mls/hr IVC .[id number] [facility]; Protocol Stop: 07/30/18 08:46 Last Admin: 01/30/18 09:31 Dose: 12 unit/kg/hr, 21.192 mls/hr Isosorbide Mononitrate (Imdur) 60 mg PO HS [facility] Stop: 07/29/18 21:01 Last Admin: 01/29/18 20:52 Dose: 60 mg Levofloxacin (Levaquin) 750 mg PO DAILY [facility] Stop: 08/01/18 09:01 Last Admin: 01/30/18 08:00 Dose: 750 mg Metoprolol Succinate (Toprol Xl) 25 mg PO DAILY [facility] Stop: 07/30/18 09:01 Last Admin: 01/30/18 08:00 Dose: 25 mg Metronidazole (Flagyl) 500 mg PO TID [facility]; Protocol Stop: 08/01/18 15:01 Naloxone HCl (Narcan) 0.4 mg IVP Q2MIN PRN PRN Reason: SEE COMMENTS Stop: 07/29/18 17:00 Omeprazole (Prilosec) 40 mg PO 0730 [facility]; Protocol Stop: 08/01/18 07:31 Last Admin: 01/30/18 08:00 Dose: 40 mg Prednisone (Prednisone) 40 mg PO DAILY [facility] Stop: 08/01/18 09:01 Last Admin: 01/30/18 08:08 Dose: 40 mg - Imaging and Cardiology Chest Xray: report reviewed Echo: report reviewed - EKG Interpretation EKG results cardiology: other (Telemetry reviewed with average HR previous 12 hours noted to be 70, SR. PVCs and PACs noted.) Consult Discharge Plan - Plan Referrals: Clifford Montero CNP [Advanced Practice Nurse] - (Office will call patient at home with follow up appointment) Brenda Moser CNP [Advanced Practice Nurse] - 02/01/18 1:45 pm
[2018-01-30] MEDS: *HR* HYDROcodone/Acet 10/325 mg TABLET PO PRN ×2 (12:37→18:01)
--- NOTE | 2018-01-30 14:24 | Internal Med Progress Note ---
Hospitalist Progress Note - Encounter Date of Encounter: 01/30/18 Time of Encounter: 10:30 - Subjective Interval History: States that his breathing has significant improved from yesterday. Denies any worsening cough or sputum production. No fever/chills. - Exam Vitals: Temp Pulse Resp BP Pulse Ox 98.0 F 76 18 151/77 98 01/30/18 12:25 01/30/18 12:25 01/30/18 12:25 01/30/18 12:25 01/30/18 12:25 Exam: General: Alert and oriented, not in acute distress. Cardiovascular:Normal S1 & S2, No JVD. Pulse regular. Lungs: scattered wheezes bilaterally Abdomen:Soft, non-tender, no rigidity. Extremities:No deformity or swelling Neurological:Normal cognition and motor skills. Non-focal - Assessment and Plan (1) Acute and chronic respiratory failure with hypercapnia Current Visit: Yes Status: Acute Assessment and Plan: Patient with chronic hypoxic and hypercapnic respiratory failure on home BiPAP with presented to outside facility complaining of increased somnolence, was found to have hypercapnia with PCO2 of 90, continue to decompensate and transferred here for further management. secondary to aspiration PNA Improved with BiPaP, abx, bronchodilators, and steroids Patient encouraged to be compliant with home oxygen and home BiPAP. Wean down O2, uses 2-3L at home Continue BiPAP when necessary (2) Aspiration pneumonia Current Visit: Yes Status: Acute Assessment and Plan: Patient is allergic to penicillins on clinda and levaquin D3 today hx of Cdiff on clinda, will switch to flagyl wean down O2 as above (3) Elevated troponin Current Visit: Yes Status: Acute Assessment and Plan: troponin peaked at 2.0 in the absence of anginal symptoms and respiratory failure likely due to demand ischemia, repeat Echo was primarily unchanged cardiology input appreciated, continue current meds and for outpatient ischemic evaluation heparin gtt d/chandrakant Continue aspirin, Plavix, metoprolol, and Imdur patient has allergies to statins (4) Encephalopathy Current Visit: Yes Status: Resolved Assessment and Plan: Presented with acute encephalopathy due to hypercarbic respiratory failure, better as respiratory status is improving Fall and aspiration precautions (5) COPD (chronic obstructive pulmonary disease) Current Visit: Yes Status: Acute Assessment and Plan: Continue oral prednisone, bronchodilators, and abx as above BiPaP as needed wean down O2 (6) HLD (hyperlipidemia) Current Visit: Yes Status: Chronic Assessment and Plan: Her chart has allergies to statin Uncontrolled hyperlipidemia Started on fenofibrate (7) HTN (hypertension) Current Visit: Yes Status: Chronic Assessment and Plan: Continue home meds (8) GERD (gastroesophageal reflux disease) Current Visit: Yes Status: Chronic Assessment and Plan: continue home meds (9) Hyperkalemia Current Visit: Yes Status: Resolved Assessment and Plan: Resolved (10) Conjunctivitis Current Visit: Yes Status: Acute Assessment and Plan: ofloxacin eyedrops to the right eye every 4 hours DVT Prophylaxis: Heparin drip discontinued as above, will start subcutaneous heparin - Time Spent with Patient Total time spent is greater than 50% in coordination of care (as documented) at patient's floor/unit and/or counseling patient: Plan of Care Discussed with: patient Internal Medicine: Result - Labs CBC & Chem 7: 01/29/18 00:50 01/29/18 00:50 - ABG Interpretation ABG results: ABG ABG pH 7.49 pH Units (7.32-7.45) H 01/29/18 04:46 ABG pCO2 46 mmHg (35-45) H 01/29/18 04:46 ABG pO2 64 mmHg (85-104) L 01/29/18 04:46 ABG O2 Saturation 94 % (95-98) L 01/29/18 04:46 PT/INR, D-dimer PT 11.5 Seconds (9.4-12.1) 01/28/18 10:03 - Impressions Impressions Echocardiogram 01/29/18 08:06 Impressions: Technically sub-optimal due to poor echocardiographic windows. LVEF 55%. Mildly dilated left ventricle. Mild segmental left ventricular systolic dysfunction. Mild left ventricular diastolic dysfunction. Normal right ventricular structure and function. Aortic valve not well visualized. Mild aortic sclerosis suggested by Doppler. Mean gradient 10 mmHg. No evidence of pulmonary hypertension. Consult Discharge Plan - Plan Referrals: Clifford Montero CNP [Advanced Practice Nurse] - (Office will call patient at home with follow up appointment) Brenda Moser CNP [Advanced Practice Nurse] - 02/01/18 1:45 pm (2) Aspiration pneumonia Qualifiers: Aspiration pneumonia type: unspecified Laterality: unspecified laterality Lung location: unspecified part of lung Qualified Code(s): J69.0 - Pneumonitis due to inhalation of food and vomit (5) COPD (chronic obstructive pulmonary disease) Qualifiers: COPD type: COPD with acute exacerbation Qualified Code(s): J44.1 - Chronic obstructive pulmonary disease with (acute) exacerbation (6) HLD (hyperlipidemia) Qualifiers: Hyperlipidemia type: unspecified Qualified Code(s): E78.5 - Hyperlipidemia, unspecified (7) HTN (hypertension) Qualifiers: Hypertension type: essential hypertension Qualified Code(s): I10 - Essential (primary) hypertension (8) GERD (gastroesophageal reflux disease) Qualifiers: Esophagitis presence: without esophagitis Qualified Code(s): K21.9 - Gastro- esophageal reflux disease without esophagitis (10) Conjunctivitis Qualifiers: Conjunctivitis type: acute Acute conjunctivitis type: bacterial Laterality: right Qualified Code(s): H10.31 - Unspecified acute conjunctivitis, right eye
[2018-01-30] MEDS: metroNIDAZOLE 500 MG TABLET PO SCH ×2 (15:56→21:55)
[2018-01-30] MEDS: Gabapentin 300 MG CAPSULE PO SCH ×2 (15:56→21:55)
[2018-01-30] MEDS: *HR* Heparin 5,000 UNIT/ML VIAL SQ SCH (18:02)
[2018-01-30] MEDS: Budesonide/Formoterol 160/4.5 1 PUFF INH IH SCH (20:45)
[2018-01-30] MEDS ORDERED: traZODone 50 MG TABLET PO SCH (21:00)
[2018-01-30] MEDS: Isosorbide MONOnitrate (24 HR) 30 MG TAB.ER.24H PO SCH (21:55)
[2018-01-31] MEDS: *HR* HYDROcodone/Acet 10/325 mg TABLET PO PRN ×2 (00:58→14:38)
[2018-01-31] MEDS: Ciprofloxacin HCL Soln 5 ML BOTTLE RIGHT EYE SCH ×4 (00:59→12:53)
[2018-01-31] MEDS: Ipratropium/Albuterol Neb 3 ML IH SCH ×4 (04:21→16:28)
[2018-01-31 05:06] LABS: Hematocrit 32.6 % (37.5-50.1); Hemoglobin 10.8 g/dL (12.9-16.9); Immature Granulocytes % 0.3 % (0-4); Lymphocytes # 1.4 K/mcL (0.6-4.6); Lymphocytes % 19.8 %; Mean Corpuscular HGB Conc 33.1 g/dL (31.6-35.5); Mean Corpuscular Hemoglobin 31.9 pg (28.0-33.3); Mean Corpuscular Volume 96.2 fL (83.0-100.0); Mean Platelet Volume 9.5 fL (9.4-12.4); Monocytes # 0.5 K/mcL (0.0-1.3); Monocytes % 6.8 %; Neutrophils # 5.3 K/mcL (1.6-8.9); Platelet Count 224 K/mcL (140-400); Red Blood Count 3.39 M/mcL (4.19-5.50); Red Cell Distribution Width 13.7 % (11.5-14.5); Segmented Neutrophils % 73.1 %
[2018-01-31] MEDS: *HR* Heparin 5,000 UNIT/ML VIAL SQ SCH (05:06)
[2018-01-31 05:27] LABS: BUN/Creatinine Ratio 19 (6-26); Blood Urea Nitrogen 21 mg/dL (8-23); Calcium 8.9 mg/dL (8.6-10.3); Carbon Dioxide 36 mEq/L (23-29); Chloride 95 mEq/L (98-107); Glucose 89 mg/dL (70-105); Osmolality,Calculated 282 (280-300); Potassium 4.2 mEq/L (3.5-5.1); Sodium 135 mEq/L (136-145); eGFR For Non-African Americans > 60 (> 60)
[2018-01-31] MEDS: Budesonide/Formoterol 160/4.5 1 PUFF INH IH SCH (08:09)
[2018-01-31] MEDS: Metoprolol XL (24 HR) Succ 50 MG TAB.ER.24H PO SCH (08:28)
[2018-01-31] MEDS: Fenofibrate 54 MG TABLET PO SCH (08:29)
[2018-01-31] MEDS: metroNIDAZOLE 500 MG TABLET PO SCH ×2 (08:29→14:38)
[2018-01-31] MEDS: predniSONE 20 MG TABLET PO SCH (08:29)
[2018-01-31] MEDS: levoFLOXacin 750 MG TABLET PO SCH (08:29)
[2018-01-31] MEDS: Aspirin Enteric Coated 81 MG Tablet PO SCH (08:30)
[2018-01-31] MEDS: Cyanocobalamin (B-12) 1,000 MCG TABLET PO SCH (08:30)
[2018-01-31] MEDS: Gabapentin 300 MG CAPSULE PO SCH ×2 (08:30→14:38)
[2018-01-31] MEDS ORDERED: Cholecalciferol (D-3) 1,000 UNIT TABLET PO SCH (09:00)
[2018-01-31] MEDS ORDERED: Fluticasone Propionate Nasal 50 MCG/SPRAY BOTTLE NS SCH (09:00)
[2018-01-31] MEDS ORDERED: (Fluticasone/Vilanterol [Breo Ellipta 200-25 Mcg Inh]) IH SCH (09:00)
[2018-01-31] MEDS ORDERED: Furosemide 40 MG TABLET PO SCH (09:00)
[2018-01-31] MEDS ORDERED: Loratadine 10 MG TABLET PO SCH (09:00)
--- NOTE | 2018-01-31 10:37 | Discharge Summary ---
- NOTES TO OUTPATIENT PROVIDER Notes to Outpatient Provider: Patient with COPD on 2-3 L of oxygen at home was admitted for acute on chronic hypercarbic respiratory failure resulting in encephalopathy. There was a concern for aspiration pneumonia and he clinicaly improved on Levaquin/Flagyl, steroids, bronchodilators, and BiPAP support. O2 was titrated down to his baseline at the time of discharge. He will be completing 5 additional days of abx and steroid as an outpatient. He will also need outpatient ischemic workup for his troponin elevation which was attributed to demand ischemia per cardiology. ASA was started as an inpatient and although he is listed as "allergic" to statins, it appears that he filled his lipitor which is to be continued. Date of Encounter: 01/31/18 Time of Encounter: 09:40 - Discharge Diagnosis (1) Acute and chronic respiratory failure with hypercapnia Priority: Primary Status: Acute (2) Aspiration pneumonia Priority: Secondary Status: Acute Qualifiers: Aspiration pneumonia type: unspecified Laterality: unspecified laterality Lung location: unspecified part of lung Qualified Code(s): J69.0 - Pneumonitis due to inhalation of food and vomit (3) Elevated troponin Priority: Secondary Status: Acute (4) Encephalopathy Priority: Secondary Status: Resolved (5) COPD (chronic obstructive pulmonary disease) Priority: Secondary Status: Acute Qualifiers: COPD type: COPD with acute exacerbation Qualified Code(s): J44.1 - Chronic obstructive pulmonary disease with (acute) exacerbation (6) HLD (hyperlipidemia) Priority: Secondary Status: Chronic Qualifiers: Hyperlipidemia type: unspecified Qualified Code(s): E78.5 - Hyperlipidemia, unspecified (7) HTN (hypertension) Priority: Secondary Status: Chronic Qualifiers: Hypertension type: essential hypertension Qualified Code(s): I10 - Essential (primary) hypertension (8) GERD (gastroesophageal reflux disease) Priority: Secondary Status: Chronic Qualifiers: Esophagitis presence: without esophagitis Qualified Code(s): K21.9 - Gastro-esophageal reflux disease without esophagitis (9) Hyperkalemia Priority: Secondary Status: Resolved (10) Conjunctivitis Priority: Secondary Status: Acute Qualifiers: Conjunctivitis type: acute Acute conjunctivitis type: bacterial Laterality: right Qualified Code(s): H10.31 - Unspecified acute co njunctivitis, right eye Hospital course: Mr. Vickers is a 72 year old male with hx of COPD on 2-3 L of oxygen at home was admitted for acute on chronic hypercarbic respiratory failure resulting in encephalopathy. There was a concern for aspiration pneumonia and he clinicaly improved on Levaquin/Flagyl, steroids, bronchodilators, and BiPAP support. O2 was titrated down to his baseline at the time of discharge. He will be completing 5 additional days of abx and steroid as an outpatient. He will also need outpatient ischemic workup for his troponin elevation which was attributed to demand ischemia per cardiology. ASA was started as an inpatient and although he is listed as "allergic" to statins, it appears that he filled his lipitor which is to be continued. - Time Spent with Patient Total time spent providing and/or coordinating discharge services: - Discharge Medications Prescriptions: Ciprofloxacin HCL [Ciloxan OPTH Soln] 2 drop RIGHT EYE Q4HR 5 Days #1 bottle Aspirin Enteric Coated [Aspirin EC] 81 mg PO DAILY #30 tablet. levoFLOXacin [Levaquin] 750 mg PO DAILY 5 Days #5 tablet metroNIDAZOLE [Flagyl] 500 mg PO TID 5 Days #15 tablet predniSONE [PredniSONE] 40 mg PO DAILY 5 Days #10 tablet Home Medications: Albuterol Neb [Proventil Neb] 2.5 mg IH [id number] PRN #1 inh 12/12/17 [Rx] Albuterol Sulfate [Proair Hfa] 2 puff IH Q4H PRN #1 hfa.aer.ad 12/12/17 [Rx] Budesonide/Formoterol 160/4.5 [Symbicort 160/4.5] 2 puff IH BIDR #1 inhaler 12/12/17 [Rx] Clopidogrel [Plavix] 75 mg PO DAILY 30 Days #30 tablet 12/12/17 [Rx] Cyanocobalamin (Vitamin B-12) [Vitamin B-12] 1,000 mcg PO DAILY #30 tablet 12/12/17 [Rx] Isosorbide MONOnitrate (24 HR) [Imdur] 60 mg PO HS #30 tab.er.24h 12/12/17 [Rx] Oxygen 2 l NS AD #1 each 12/12/17 [Rx] traZODone [TraZODone] 50 mg PO HS #30 tablet 12/12/17 [Rx] Cetirizine HCl [Zyrtec] 10 mg PO DAILY 01/23/18 [History] Hydrocodone/Acetaminophen [Hydrocodon-Acetaminophn 10-325] 1 each PO Q6H PRN 01/23/18 [History] Atorvastatin Calcium [Lipitor] 20 mg PO HS 01/29/18 [History] Cholecalciferol (Vitamin D3) [Vitamin D3] 10,000 unit PO WE 01/29/18 [History] Fluticasone Propionate Nasal [Flonase] 2 spr NS DAILY 01/29/18 [History] Fluticasone/Vilanterol [Breo Ellipta 200-25 Mcg INH] 1 puff IH DAILY 01/29/18 [History] Furosemide [Lasix] 40 mg PO DAILY 01/29/18 [History] Gabapentin [Neurontin] 300 mg PO TID 01/29/18 [History] Metoprolol XL (24 HR) Succ [Toprol Xl] 25 mg PO DAILY 01/29/18 [History] Omeprazole [PriLOSEC] 20 mg PO DAILY 01/29/18 [History] Ranitidine HCl [Acid Primer Supervisor] 150 mg PO BID 01/29/18 [History] Temazepam [Restoril] 15 mg PO HS 01/29/18 [History] Tiotropium [Spiriva] 18 mcg PO DAILY 01/29/18 [History] Aspirin Enteric Coated [Aspirin EC] 81 mg PO DAILY #30 tablet. 01/31/18 [Rx] Ciprofloxacin HCL [Ciloxan OPTH Soln] 2 drop RIGHT EYE Q4HR 5 Days #1 bottle 01/31/18 [Rx] levoFLOXacin [Levaquin] 750 mg PO DAILY 5 Days #5 tablet 01/31/18 [Rx] metroNIDAZOLE [Flagyl] 500 mg PO TID 5 Days #15 tablet 01/31/18 [Rx] predniSONE [PredniSONE] 40 mg PO DAILY 5 Days #10 tablet 01/31/18 [Rx] Allergies/Adverse Reactions: Allergy/AdvReac Type Severity Reaction Status Date / Time Erythromycin Base Allergy Hives Verified 01/29/18 10:03 Penicillins [PCN] Allergy Hives Verified 01/29/18 10:03 [id number] Reductase Allergy Itching Verified 01/29/18 10:03 Inhibitor [Statins] Date of admission: 01/27/18 17:01 Primary care physician: PCP NONE Consults: 01/28/18 08:33 Consult to Cardiology [CONS] Routine Comment: Consulting Provider: Cardiology Ernestina Reason for Consult: Elevated troponin Call Completed: No 01/30/18 08:52 Consult to Physical Therapy [CONS] Routine Comment: Evaluate, develop and implement POC Reason for Consult: Lives at home with HH, weakness with increased O2 req Does patient have active BEDREST order?: No Is patient medically & hemodynamically stable?: Yes Patient assessed for mobility or mobilized this visit?: No OT [Consult to Occupational Therapy] [CONS] Routine Comment: Evaluate, develop and implement POC Reason for Consult: Lives at home with HH, weakness with increased O2 req Does patient have active BEDREST order?: No Is patient medically & hemodynamically stable?: Yes Patient assessed for mobility or mobilized this visit?: No - Constitutional Vitals: Temp Pulse Resp BP Pulse Ox 98.0 F 72 20 151/67 92 01/31/18 08:29 01/31/18 08:29 01/31/18 08:29 01/31/18 08:29 01/31/18 08:29 General appearance: Present: A&O X 0 (Patient is completely confused, does not know his name, does not know the time, does not know where he is.) Exam: General: Alert and oriented, not in acute distress. Cardiovascular:Normal S1 & S2, No JVD. Pulse regular. Lungs: occasional wheezes bilaterally but largely clear Abdomen:Soft, non-tender, no rigidity. Extremities:No deformity or swelling Neurological:Normal cognition and motor skills. Non-focal - Patient Status Disposition: Home Health Service Condition: Undetermined Overall status at discharge: patient is progressing back to baseline - Discharge Instructions Instructions: Acute Respiratory Distress Syndrome (DC), Pneumonia (DC), Chronic Obstructive Pulmonary Disease (DC) Follow Up With: Clifford Montero CNP [Advanced Practice Nurse] - (Office will call patient at home with follow up appointment) Brenda Moser CNP [Advanced Practice Nurse] - 02/01/18 1:45 pm - Diet and Activity Activity: as per physical therapy Diet: low salt diet
--- NOTE | 2018-01-31 10:47 | Physician Discharge Referral ---
Home Health/Hosp Referral Info Transfer to: Home Health - Diagnosis (1) Acute and chronic respiratory failure with hypercapnia Priority: Primary Status: Acute (2) Aspiration pneumonia Priority: Secondary Status: Acute (3) Elevated troponin Priority: Secondary Status: Acute (4) Encephalopathy Priority: Secondary Status: Resolved (5) COPD (chronic obstructive pulmonary disease) Priority: Secondary Status: Acute (6) HLD (hyperlipidemia) Priority: Secondary Status: Chronic (7) HTN (hypertension) Priority: Secondary Status: Chronic (8) GERD (gastroesophageal reflux disease) Priority: Secondary Status: Chronic (9) Hyperkalemia Priority: Secondary Status: Resolved (10) Conjunctivitis Priority: Secondary Status: Acute - Respiratory Orders Smoking Cessation: Smoking cessation has been advised. For more information, call the [place] [employer] Quit Line at [phone]-DFESNOW. - Services Needed Following services are medically necessary services: Physical Therapy, Occupational Therapy - Transfer Medications Prescriptions: Ciprofloxacin HCL [Ciloxan OPTH Soln] 2 drop RIGHT EYE Q4HR 5 Days #1 bottle Aspirin Enteric Coated [Aspirin EC] 81 mg PO DAILY #30 tablet. levoFLOXacin [Levaquin] 750 mg PO DAILY 5 Days #5 tablet metroNIDAZOLE [Flagyl] 500 mg PO TID 5 Days #15 tablet predniSONE [PredniSONE] 40 mg PO DAILY 5 Days #10 tablet Home Medications: Albuterol Neb [Proventil Neb] 2.5 mg IH [id number] PRN #1 inh 12/12/17 [Rx] Albuterol Sulfate [Proair Hfa] 2 puff IH Q4H PRN #1 hfa.aer.ad 12/12/17 [Rx] Budesonide/Formoterol 160/4.5 [Symbicort 160/4.5] 2 puff IH BIDR #1 inhaler 12/12/17 [Rx] Clopidogrel [Plavix] 75 mg PO DAILY 30 Days #30 tablet 12/12/17 [Rx] Cyanocobalamin (Vitamin B-12) [Vitamin B-12] 1,000 mcg PO DAILY #30 tablet 12/12/17 [Rx] Isosorbide MONOnitrate (24 HR) [Imdur] 60 mg PO HS #30 tab.er.24h 12/12/17 [Rx] Oxygen 2 l NS AD #1 each 12/12/17 [Rx] traZODone [TraZODone] 50 mg PO HS #30 tablet 12/12/17 [Rx] Cetirizine HCl [Zyrtec] 10 mg PO DAILY 01/23/18 [History] Hydrocodone/Acetaminophen [Hydrocodon-Acetaminophn 10-325] 1 each PO Q6H PRN 01/23/18 [History] Atorvastatin Calcium [Lipitor] 20 mg PO HS 01/29/18 [History] Cholecalciferol (Vitamin D3) [Vitamin D3] 10,000 unit PO WE 01/29/18 [History] Fluticasone Propionate Nasal [Flonase] 2 spr NS DAILY 01/29/18 [History] Fluticasone/Vilanterol [Breo Ellipta 200-25 Mcg INH] 1 puff IH DAILY 01/29/18 [History] Furosemide [Lasix] 40 mg PO DAILY 01/29/18 [History] Gabapentin [Neurontin] 300 mg PO TID 01/29/18 [History] Metoprolol XL (24 HR) Succ [Toprol Xl] 25 mg PO DAILY 01/29/18 [History] Omeprazole [PriLOSEC] 20 mg PO DAILY 01/29/18 [History] Ranitidine HCl [Acid Nurse Instructor] 150 mg PO BID 01/29/18 [History] Temazepam [Restoril] 15 mg PO HS 01/29/18 [History] Tiotropium [Spiriva] 18 mcg PO DAILY 01/29/18 [History] Aspirin Enteric Coated [Aspirin EC] 81 mg PO DAILY #30 tablet. 01/31/18 [Rx] Ciprofloxacin HCL [Ciloxan OPTH Soln] 2 drop RIGHT EYE Q4HR 5 Days #1 bottle 01/31/18 [Rx] levoFLOXacin [Levaquin] 750 mg PO DAILY 5 Days #5 tablet 01/31/18 [Rx] metroNIDAZOLE [Flagyl] 500 mg PO TID 5 Days #15 tablet 01/31/18 [Rx] predniSONE [PredniSONE] 40 mg PO DAILY 5 Days #10 tablet 01/31/18 [Rx] Allergies/Adverse Reactions: Allergy/AdvReac Type Severity Reaction Status Date / Time Erythromycin Base Allergy Hives Verified 01/29/18 10:03 Penicillins [PCN] Allergy Hives Verified 01/29/18 10:03 [id number] Reductase Allergy Itching Verified 01/29/18 10:03 Inhibitor [Statins] Certification: Further, I certify that my clinical findings support that this patient is homebound (i.e. absences from home require considerable and taxing effort and are for medical reasons or jain services or infrequently or short duration when for other reasons) because: Homebound Reason: Patient requires assistance of a person or device to safely leave home Attestation: My signature below is to certify that this patient is under my care and that I, or nurse practitioner, or a physician's drafter assistant working with me, has a [id number] encounter with this patient.
[2018-01-31 16:17] VITALS: BP 146/83
== END 2018-01-31 17:22 | disposition home health service (06) | DRG 189 ==
LOC: EMEROOARM 15:42 → SUATTDRO 17:01 → 2NNU 17:01
PROVIDERS: ADMIT Internal Medicine; ATTEND Internal Medicine

== ENCOUNTER 2018-02-16 06:32 | Inpatient (IN) ==
[2018-02-16] MEDS ORDERED: Artificial Tears SOLN 15 ML BOTTLE BOTH EYES PRN (10:12)
[2018-02-16] MEDS ORDERED: *HR* Dextrose 50 % in Water (Syg) 50 ML SYRINGE IVP PRN (10:13)
[2018-02-16] MEDS ORDERED: Dextrose Gel 15 GM/37.5 ML TUBE PO PRN ×2 (10:13)
[2018-02-16] MEDS ORDERED: D5% in Water 1,000 ML IVC PRN (10:13)
[2018-02-16] MEDS ORDERED: Dexmedetomidine HCl 400 MCG/100 ML MLS IVC ONE (10:13)
[2018-02-16 10:45] LABS: Basophils % 0.1 %; Eosinophils % 0.1 %; Hematocrit 32.8 % (37.5-50.1); Hemoglobin 10.2 g/dL (12.9-16.9); Immature Granulocytes % 0.6 % (0-4); Lymphocytes # 0.8 K/mcL (0.6-4.6); Lymphocytes % 4.9 %; Mean Corpuscular HGB Conc 31.1 g/dL (31.6-35.5); Mean Corpuscular Hemoglobin 31.7 pg (28.0-33.3); Mean Corpuscular Volume 101.9 fL (83.0-100.0); Mean Platelet Volume 9.1 fL (9.4-12.4); Monocytes # 0.5 K/mcL (0.0-1.3); Monocytes % 2.9 %; Neutrophils # 15.4 K/mcL (1.6-8.9); Platelet Count 191 K/mcL (140-400); Red Blood Count 3.22 M/mcL (4.19-5.50); Red Cell Distribution Width 13.9 % (11.5-14.5); Segmented Neutrophils % 91.4 %
[2018-02-16 10:52] LABS: ABG Base Excess 7 mEq/L (-2 to 3); ABG HCO3 35 mEq/L (21-27); ABG Oxygen Saturation 98 % (95-98); ABG PCO2 67 mmHg (35-45); ABG PH 7.33 pH Units (7.32-7.45); ABG PO2 108 mmHg (85-104); ABG TCO2 37 mEq/L (20-26); Blood Gas Modality ASSIST CONTROL; Blood Gas PEEP 5 cm H2O; Blood Gas Respiration Rate 16; Blood Gas VT 450 cc
[2018-02-16 10:53] LABS: VBG Ionized Calcium 1.08 mmol/L (1.15-1.35)
[2018-02-16 11:05] LABS: Alanine Aminotransferase 11 Units/L (7-52); Albumin 2.8 g/dL (3.5-5.7); Albumin/Globulin Ratio 1.3 (1.1-2.2); Alkaline Phosphatase 53 Units/L (34-104); Aspartate Amino Transferase 22 Units/L (13-39); BUN/Creatinine Ratio 16 (6-26); Bilirubin,Total 0.5 mg/dL (0.3-1.0); Blood Urea Nitrogen 22 mg/dL (8-23); Calcium 7.4 mg/dL (8.6-10.3); Carbon Dioxide 34 mEq/L (23-29); Chloride 100 mEq/L (98-107); Globulin 2.2 g/dL (2.4-3.5); Glucose 88 mg/dL (70-105); Magnesium 1.6 mg/dL (1.6-2.6); Osmolality,Calculated 287 (280-300); Phosphorous 3.9 mg/dL (2.7-4.5); Potassium 4.6 mEq/L (3.5-5.1); Sodium 137 mEq/L (136-145); eGFR For Non-African Americans 51 (> 60)
[2018-02-16] MEDS ORDERED: Naloxone 0.4 MG/ML INJ IVP PRN (11:07)
[2018-02-16] MEDS: Dexmedetomidine HCl 400 MCG/100 ML MLS IVC SCH ×4 (11:11→23:09)
--- NOTE | 2018-02-16 11:12 | Pulmonology History & Physical ---
Addendum entered and electronically signed by Sandy Dunaway 02/16/18 14:10: Original Note: <Sandy Dunaway - Last Filed: 02/16/18 11:12> Date of Encounter: 02/16/18 Time of Encounter: 10:30 Assessment and Plan (1) Acute and chronic respiratory failure with hypercapnia Current visit: No Status: Acute Pt initially found down at home Responded to voice but was very somnolent - Narcan administered without effect Pt became more unresponsive and was intubated at [facility] Initial ABG - pH 7.21, pCO2 112, pO2 168, HCO3 45 Repeat ABG here - pH 7.33, pCO2 67, pO2 108, HCO3 35 Continue to monitor and wean from vent and sedation as able Treat suspected pneumonia with continued Vanc and Zosyn (2) Severe sepsis Current visit: Yes Status: Acute Pt initial WBC at [place] 23.8 Hypotensive, tachycardic and tachypnic Lactic acid wnl at 1.4 CPK elevated at 329 Pt received 4L fluid bolus and Dopamine INTERNAL MEDICINE DOCTOR - switched Dopamine to Levophed upon arrival Given Vanc, Zosyn and Levaquin at [facility] INTERNAL MEDICINE DOCTOR Repeat labs showed WBC 16.9, trop wnl, cpk , lactic (3) Acute kidney injury superimposed on chronic kidney disease Current visit: Yes Status: Acute Initial Cre at [facility] 1.58 - likely prerenal due to dehydration vs sepsis Decreased to 1.37 at [facility] Continue to monitor (4) Diastolic CHF, acute on chronic Current visit: Yes Status: Acute Echo done 01/29/18 showed LVEF of 55% with LV inferior wall hypokinesis Pt received 4L bolus for sepsis protocol and hypotension Hold fluids at this time Cautious hydration in future to avoid CHF exacerbation (5) Anemia Current visit: No Status: Chronic H&H 10.2/32.8 This is near baseline for him Continue to monitor Qualifiers: Anemia type: unspecified type Qualified Code(s): D64.9 - Anemia, unspecified (6) Hyperkalemia Current visit: Yes Status: Resolved Initial K at [facility] was 5.3 Resolved now at 4.6 Continue to trend with am labs (7) DVT prophylaxis Current visit: Yes Status: Acute Heparin SQ History of Present Illness Chief complaint: Unresponsive HPI: Mr. Vickers is a 72 year old male who was transferred here from [facility] after being found down at home. He was unresponsive with pinpoint pupils. He was gien a dose of Narcan without effect. He was initially responsive to voice at [facility] but began deteriorating and was subsequently intubated for hypercapnic respiratory failure. Head CT was done and did not demonstrate any acute brain infarct or hemorrhage. CXR showed a R lower lung opacity, likely atelectasis vs pneumonia. Initial labs showed leukocytosis of 23.8 and a mild anemia, hyperkalemia and possible JOHANNE vs CKD with Cre of 1.68. Cpk mildly elevated at 329. Lactic and troponin wnl. Due to his elevated white count, tachycardia, tachypnea, hypotension and source of infection he was given a fluid bolus and started on pressors. A central line was placed at [facility] when asked by accepting Hospitalist after they tried to transfer the patient with dopamine administration through a peripheral line. The patient arrived to [facility] ICU at appx 1000 awake but unable to follow commands. Repeat labs were ordered, as well as an EKG and stat echo. Pt received 4L of fluids INTERNAL MEDICINE DOCTOR which is more than adequate fluid resuscitation for the sepsis bolus. He was no longer hypotensive upon arrival, and satting well. Will do a sepsis re-evaluation and follow up on labs and imaging studies closely. Pt currently unresponsive and intubated, unable to determine code status at this time. The family will be contacted to try to determine code status today. Past Med Surg Social Fam HX - Past Medical History Medical history: arthritis, asthma, CHF, COPD, coronary artery disease, GERD, hyperlipidemia, hypertension, myocardial infarction, renal disease, other Additional medical history: MYRIAM non compliant with c pap. C-Diff Psychiatric history: no psych history - Past Surgical History Surgical History: cataract, orthopedic, other, tonsilectomy, other Additional surgical history: ORIF right wrist repair of double fx of right arm Clavicle repair - Social History Smoking Status: Current some day smoker Smokeless Tobacco Status: No Alcohol use: none Drug use: none, other - Family History Brother Family Member Ethnicity: Non- Living Status: Hx Family Cardiac Disorders: Yes (CHF) Hx Family Respiratory Disorders: Yes (COPD, Mesothelioma) Father Family Member Ethnicity: Non- Living Status: Hx Family Cardiac Disorders: Yes (ND, CHF, HTN, Stroke) Hx Family Endocrine Disorder: Yes (DM) Mother Family Member Ethnicity: Non- Living Status: Hx Family Cardiac Disorders: Yes (Stroke, CHF) Medications and Allergies RX: Albuterol Neb [Proventil Neb] 2.5 mg IH [id number] PRN #1 inh 12/12/17 [Rx] RX: Albuterol Sulfate [Proair Hfa] 2 puff IH Q4H PRN #1 hfa.aer.ad 12/12/17 [Rx] RX: Budesonide/Formoterol 160/4.5 [Symbicort 160/4.5] 2 puff IH BIDR #1 inhaler 12/12/17 [Rx] RX: Clopidogrel [Plavix] 75 mg PO DAILY 30 Days #30 tablet 12/12/17 [Rx] RX: Cyanocobalamin (Vitamin B-12) [Vitamin B-12] 1,000 mcg PO DAILY #30 tablet 12/12/17 [Rx] RX: Isosorbide MONOnitrate (24 HR) [Imdur] 60 mg PO HS #30 tab.er.24h 12/12/17 [Rx] RX: Oxygen 2 l NS AD #1 each 12/12/17 [Rx] RX: traZODone [TraZODone] 50 mg PO HS #30 tablet 12/12/17 [Rx] RX: Cetirizine HCl [Zyrtec] 10 mg PO DAILY 01/23/18 [History] RX: Hydrocodone/Acetaminophen [Hydrocodon-Acetaminophn 10-325] 1 each PO Q6H PRN 01/23/18 [History] RX: Atorvastatin Calcium [Lipitor] 20 mg PO HS 01/29/18 [History] RX: Cholecalciferol (Vitamin D3) [Vitamin D3] 10,000 unit PO WE 01/29/18 [History] RX: Fluticasone Propionate Nasal [Flonase] 2 spr NS DAILY 01/29/18 [History] RX: Fluticasone/Vilanterol [Breo Ellipta 200-25 Mcg INH] 1 puff IH DAILY 01/29/18 [History] RX: Furosemide [Lasix] 40 mg PO DAILY 01/29/18 [History] RX: Gabapentin [Neurontin] 300 mg PO TID 01/29/18 [History] RX: Metoprolol XL (24 HR) Succ [Toprol Xl] 25 mg PO DAILY 01/29/18 [History] RX: Omeprazole [PriLOSEC] 20 mg PO DAILY 01/29/18 [History] RX: Ranitidine HCl [Acid Thread Dresser] 150 mg PO BID 01/29/18 [History] RX: Temazepam [Restoril] 15 mg PO HS 01/29/18 [History] RX: Tiotropium [Spiriva] 18 mcg PO DAILY 01/29/18 [History] RX: Aspirin Enteric Coated [Aspirin EC] 81 mg PO DAILY #30 tablet. 01/31/18 [Rx] RX: Doxycycline 100 mg PO BID #10 capsule 02/11/18 [Rx] RX: PredniSONE [Deltasone] 20 mg PO DAILY #5 tablet 02/11/18 [Rx] Allergy/AdvReac Type Severity Reaction Status Date / Time Erythromycin Base Allergy Hives Verified 01/29/18 10:03 Penicillins [PCN] Allergy Hives Verified 01/29/18 10:03 Uemrrhy-Ybs-Hgf Reductase Allergy Itching Verified 01/29/18 10:03 Inhibitor [Statins] ROS unobtainable: due to endotracheal tube All Systems: The remainder of the systems were reviewed and are negative Physical Examination Vital Signs: Vital Signs, Last 4 Hours Temp Pulse Resp BP Pulse Ox 02/16/18 10:15 99.2 F 86 16 130/60 02/16/18 10:11 16 96 General appearance: no acute distress Eyes: nonicteric ENT: oropharynx dry Neck: supple Effort: normal Auscultation: bilateral: clear Cardiovascular: regular rate and rhythm Gastrointestinal: soft, non-tender, non-distended Integumentary: normal Extremities: no cyanosis, pulses normal, edema (2+ pitting edema to mid hernandez B/L) Musculoskeletal: no deformities other (pupils pinpoint, unable to follow commands) Results - Laboratory Findings CBC and BMP: 02/16/18 10:37 02/16/18 10:37 ABG ABG pH 7.33 pH Units (7.32-7.45) 02/16/18 10:45 ABG pCO2 67 mmHg (35-45) H 02/16/18 10:45 ABG pO2 108 mmHg (85-104) H 02/16/18 10:45 ABG O2 Saturation 98 % (95-98) 02/16/18 10:45 Abnormal lab findings: Abnormal lab results WBC 16.9 K/mcL (4.3-11.1) H 02/16/18 10:37 RBC 3.22 M/mcL (4.19-5.50) L 02/16/18 10:37 Hgb 10.2 g/dL (12.9-16.9) L 02/16/18 10:37 Hct 32.8 % (37.5-50.1) L 02/16/18 10:37 MCV 101.9 fL (83.0-100.0) H 02/16/18 10:37 MCHC 31.1 g/dL (31.6-35.5) L 02/16/18 10:37 MPV 9.1 fL (9.4-12.4) L 02/16/18 10:37 Neutrophils # 15.4 K/mcL (1.6-8.9) H 02/16/18 10:37 ABG pCO2 67 mmHg (35-45) H 02/16/18 10:45 ABG pO2 108 mmHg (85-104) H 02/16/18 10:45 ABG HCO3 35 mEq/L (21-27) H 02/16/18 10:45 ABG Total CO2 37 mEq/L (20-26) H 02/16/18 10:45 ABG Base Excess 7 mEq/L (-2 to 3) H 02/16/18 10:45 Carbon Dioxide 34 mEq/L (23-29) H 02/16/18 10:37 Creatinine 1.37 mg/dL (0.70-1.30) H 02/16/18 10:37 Est GFR (Non-Af Amer) 51 (> 60) L 02/16/18 10:37 Calcium 7.4 mg/dL (8.6-10.3) L 02/16/18 10:37 Venous Ioniz Calcium 1.08 mmol/L (1.15-1.35) L 02/16/18 10:49 Serum Total Protein 5.0 g/dL (6.4-8.9) L 02/16/18 10:37 Albumin 2.8 g/dL (3.5-5.7) L 02/16/18 10:37 Globulin 2.2 g/dL (2.4-3.5) L 02/16/18 10:37 Sepsis Reassessment Note - Evaluation Sepsis Screen: No Definite Risk Current Stage of Sepsis: severe sepsis Possible Source of Sepsis: pulmonary - Focused Exam Date of Encounter: 02/16/18 Time of Encounter: 10:30 Vital Signs: Vital Signs Temp Pulse Resp BP Pulse Ox 02/16/18 11:00 71 16 141/66 02/16/18 10:15 99.2 F 86 16 130/60 02/16/18 10:11 16 96 Respiratory Exam: Present: CTA bilaterally Cardiovascular Exam: Present: RRR Capillary Refill: < 2 seconds Peripheral Pulse Strength: 1+ faint Peripheral Pulse Location: Radial Skin Exam: normal turgor <Trevor Cuellar S - Last Filed: 02/16/18 13:44> Date of Encounter: 02/16/18 History of Present Illness HPI: Mr. Vickers is a 72 year old male All Systems: The remainder of the systems were reviewed and are negative Physical Examination Vital Signs: Vital Signs, Last 4 Hours Temp Pulse Resp BP Pulse Ox 02/16/18 12:00 98.4 F 69 16 139/69 02/16/18 11:41 16 99 02/16/18 11:00 98.4 F 66 16 139/69 95 02/16/18 10:15 99.2 F 86 16 130/60 02/16/18 10:11 16 96 Results - Laboratory Findings CBC and BMP: 02/16/18 10:37 02/16/18 10:37 ABG ABG pH 7.33 pH Units (7.32-7.45) 02/16/18 10:45 ABG pCO2 67 mmHg (35-45) H 02/16/18 10:45 ABG pO2 108 mmHg (85-104) H 02/16/18 10:45 ABG O2 Saturation 98 % (95-98) 02/16/18 10:45 Abnormal lab findings: Abnormal lab results WBC 16.9 K/mcL (4.3-11.1) H 02/16/18 10:37 RBC 3.22 M/mcL (4.19-5.50) L 02/16/18 10:37 Hgb 10.2 g/dL (12.9-16.9) L 02/16/18 10:37 Hct 32.8 % (37.5-50.1) L 02/16/18 10:37 MCV 101.9 fL (83.0-100.0) H 02/16/18 10:37 MCHC 31.1 g/dL (31.6-35.5) L 02/16/18 10:37 MPV 9.1 fL (9.4-12.4) L 02/16/18 10:37 Neutrophils # 15.4 K/mcL (1.6-8.9) H 02/16/18 10:37 ABG pCO2 67 mmHg (35-45) H 02/16/18 10:45 ABG pO2 108 mmHg (85-104) H 02/16/18 10:45 ABG HCO3 35 mEq/L (21-27) H 02/16/18 10:45 ABG Total CO2 37 mEq/L (20-26) H 02/16/18 10:45 ABG Base Excess 7 mEq/L (-2 to 3) H 02/16/18 10:45 Carbon Dioxide 34 mEq/L (23-29) H 02/16/18 10:37 Creatinine 1.37 mg/dL (0.70-1.30) H 02/16/18 10:37 Est GFR (Non-Af Amer) 51 (> 60) L 02/16/18 10:37 Calcium 7.4 mg/dL (8.6-10.3) L 02/16/18 10:37 Venous Ioniz Calcium 1.08 mmol/L (1.15-1.35) L 02/16/18 10:49 Creatine Kinase 442 Units/L (30-223) H 02/16/18 12:49 B-Natriuretic Peptide 238 pg/mL (Less than 100) H 02/16/18 10:37 Serum Total Protein 5.0 g/dL (6.4-8.9) L 02/16/18 10:37 Albumin 2.8 g/dL (3.5-5.7) L 02/16/18 10:37 Globulin 2.2 g/dL (2.4-3.5) L 02/16/18 10:37 - Attending Attestation I saw and evaluated this patient and my medical decision-making was reviewed with the Resident Physician. I agree with the documented findings, disposition and treatment plan as described except to the extent set forth below. We independently had [id number] contact with the patient I spent 40 minutes of Critical Care time with this patient. It involved decision making of high complexity to assess, manipulate, and support vital organ system failure and/or to prevent further life threatening deterioration of the patient's condition. The time involved in the performance of separately reportable procedures was not counted toward critical care time. Patient seen and examined at bedside Labs, radiology, chart personally reviewed. Management was reviewed during multidisciplinary critical care rounds. ANIMAL BEHAVIORIST: Patient is alert little bit agitated follows commands patient is intubated most likely due to toxic/metabolic encephalopathy Pulm: Patient has background of COPD now when exacerbation V/Q mismatch mostly due to COPD and possible pneumonia bronchodilators, steroids and broad-spectrum antibiotics. Adjusted the ventilator setting acceptable oxygenation and ventilation. Cards: Patient presented like severe sepsis to septic shock will try to liberate the vasopressors we will get an echo trend troponins. FEN-GI: Nothing by mouth for today Renal: JOHANNE we will trend Senior creatinine ID: Most likely source is pneumonia to cover with broad-spectrum antibiotics for now Heme/Onc: Prophylaxis labs reviewed Endo: Glucose Monitored Integ/MSK: Skin Care per routine ICU Nursing Protocol to prevent ulcers. Lines: All lines examined without evidence of infection : Dispo: Critically ill CODE: Full Code Sepsis Reassessment Note - Focused Exam Vital Signs: Vital Signs Temp Pulse Resp BP Pulse Ox 02/16/18 12:00 98.4 F 69 16 139/69 02/16/18 11:41 16 99 02/16/18 11:00 98.4 F 66 16 139/69 95 02/16/18 10:15 99.2 F 86 16 130/60 02/16/18 10:11 16 96
[2018-02-16] MEDS: Norepinephrine 4 MG in D5% in Water 250 ML IVC SCH (11:15)
[2018-02-16] MEDS: Artificial Tears SOLN 15 ML BOTTLE BOTH EYES SCH ×4 (11:45→23:13)
[2018-02-16] MEDS ORDERED: Piperacillin/Tazobactam 3.375 GM in 0.9 % Sodium Chloride Mini Bag 100 ML IVPB ONE (11:49)
[2018-02-16] MEDS: Insulin LISPRO 300 UNITS/3 ML VIAL SQ SCH ×3 (12:15→23:05)
[2018-02-16] MEDS: Piperacillin/Tazobactam 3.375 GM in 0.9 % Sodium Chloride Mini Bag 100 ML IVPB SCH ×2 (13:48→19:51)
[2018-02-16 15:23] LABS: Adenovirus Not Detected (Not Detect); Bordetella Pertussis Not Detected (Not Detect); Chlamydophila pneumoniae Not Detected (Not Detect); Coronavirus 229E Not Detected (Not Detect); Coronavirus HKU1 Not Detected (Not Detect); Coronavirus NL63 Not Detected (Not Detect); Coronavirus OC43 Not Detected (Not Detect); Human Metapneumovirus Not Detected (Not Detect); Human Rhinovirus/Enterovirus Not Detected (Not Detect); Influenza A Subtype 2009 H1 Not Detected (Not Detect); Influenza A Untypeable Not Detected (Not Detect); Influenza B Not Detected (Not Detect); Mycoplasma pneumoniae Not Detected (Not Detect); Parainfluenza Virus 1 Not Detected (Not Detect); Parainfluenza Virus 2 Not Detected (Not Detect); Parainfluenza Virus 3 Not Detected (Not Detect); Parainfluenza Virus 4 Not Detected (Not Detect); Respiratory Syncytial Virus Not Detected (Not Detect)
[2018-02-16] MEDS ORDERED: Perflutren Lipid Microsphere 1.3 ML in 0.9 % Sodium Chloride 8.7 ML IVP ONE (16:28)
[2018-02-16] MEDS: methylPREDNISolone 125 MG/2 ML VIAL IVP SCH ×2 (16:40→23:11)
[2018-02-16] MEDS: *HR* Heparin 5,000 UNIT/ML VIAL SQ SCH (17:25)
--- NOTE | 2018-02-16 17:37 | Electrocardiograph Report ---
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
[2018-02-16] MEDS: Chlorhexidine Rinse 15 ML MOUTHWASH MM SCH (19:49)
[2018-02-17] MEDS: Dexmedetomidine HCl 400 MCG/100 ML MLS IVC SCH ×3 (03:13→21:10)
[2018-02-17] MEDS: Artificial Tears SOLN 15 ML BOTTLE BOTH EYES SCH ×6 (03:13→23:22)
[2018-02-17 04:26] LABS: VBG Ionized Calcium 1.11 mmol/L (1.15-1.35)
[2018-02-17 04:28] LABS: Hematocrit 34.3 % (37.5-50.1); Hemoglobin 10.9 g/dL (12.9-16.9); Mean Corpuscular HGB Conc 31.8 g/dL (31.6-35.5); Mean Corpuscular Hemoglobin 31.5 pg (28.0-33.3); Mean Corpuscular Volume 99.1 fL (83.0-100.0); Mean Platelet Volume 9.9 fL (9.4-12.4); Platelet Count 172 K/mcL (140-400); Red Blood Count 3.46 M/mcL (4.19-5.50); Red Cell Distribution Width 13.8 % (11.5-14.5)
[2018-02-17 04:39] LABS: ABG Base Excess 4 mEq/L (-2 to 3); ABG HCO3 30 mEq/L (21-27); ABG Oxygen Saturation 94 % (95-98); ABG PCO2 49 mmHg (35-45); ABG PO2 74 mmHg (85-104); ABG TCO2 31 mEq/L (20-26); Blood Gas Modality ASSIST CONTROL; Blood Gas PEEP 5 cm H2O; Blood Gas Respiration Rate 16; Blood Gas VT 450 cc
[2018-02-17 04:47] LABS: Alanine Aminotransferase 12 Units/L (7-52); Albumin 2.9 g/dL (3.5-5.7); Albumin/Globulin Ratio 1.3 (1.1-2.2); Alkaline Phosphatase 52 Units/L (34-104); Aspartate Amino Transferase 21 Units/L (13-39); BUN/Creatinine Ratio 20 (6-26); Bilirubin,Total 0.4 mg/dL (0.3-1.0); Blood Urea Nitrogen 27 mg/dL (8-23); Calcium 8.3 mg/dL (8.6-10.3); Carbon Dioxide 29 mEq/L (23-29); Chloride 100 mEq/L (98-107); Creatine Kinase 182 Units/L (30-223); Globulin 2.3 g/dL (2.4-3.5); Glucose 136 mg/dL (70-105); Magnesium 1.8 mg/dL (1.6-2.6); Osmolality,Calculated 289 (280-300); Phosphorous 4.7 mg/dL (2.7-4.5); Sodium 136 mEq/L (136-145); Total Protein 5.2 g/dL (6.4-8.9); eGFR For Non-African Americans 52 (> 60)
[2018-02-17] MEDS: *HR* Heparin 5,000 UNIT/ML VIAL SQ SCH ×2 (05:30→17:14)
[2018-02-17] MEDS: Insulin LISPRO 300 UNITS/3 ML VIAL SQ SCH ×4 (05:35→23:24)
[2018-02-17] MEDS: Piperacillin/Tazobactam 3.375 GM in 0.9 % Sodium Chloride Mini Bag 100 ML IVPB SCH ×3 (05:38→21:08)
[2018-02-17 05:39] LABS: Lymphocytes # 0.3 K/mcL (0.6-4.6); Platelet Estimate Normal (Normal)
[2018-02-17] MEDS: methylPREDNISolone 125 MG/2 ML VIAL IVP SCH ×3 (08:00→23:25)
[2018-02-17] MEDS: Chlorhexidine Rinse 15 ML MOUTHWASH MM SCH ×2 (08:01→20:32)
--- NOTE | 2018-02-17 08:51 | Pulmonology Progress Note ---
Date of Encounter: 02/17/18 Time of Encounter: 08:00 Assessment and Plan (1) Acute and chronic respiratory failure with hypercapnia Current Visit: No Status: Acute Patient had developed this presentation secondary to COPD exacerbation and possible pneumonia with the opiates in the system complicated by acute on chronic diastolic heart failure did well on the spontaneous breathing trial and will be extubated today mainly in the night he might need BiPAP. (2) Diastolic CHF, acute on chronic Current Visit: Yes Status: Acute Patient has acute on chronic diastolic heart failure will diurese as tolerated will need to control his afterload and preload adequately. (3) Acute exacerbation of chronic obstructive airways disease Current Visit: No Status: Acute Continue scheduled bronchodilators and broad-spectrum antibiotics. (4) Acute kidney injury superimposed on chronic kidney disease Current Visit: Yes Status: Acute Serum creatinine is trending down. (5) DVT prophylaxis Current Visit: Yes Status: Acute To continue Thromboprophylaxis . Objective PUL Vital signs: Last Vital Signs Temp 97.5 F L 02/17/18 08:01 Pulse 64 02/17/18 08:00 Resp 19 02/17/18 08:00 BP 145/76 02/17/18 08:00 Pulse Ox 91 02/17/18 08:19 Ventilator Settings Ventilator Settings: Ventilator Settings, Last 8 Hours Ventilator Tidal Volume 450 Setting Ventilator Tidal Volume 450 Setting Ventilator Tidal Volume 450 Setting Ventilator Tidal Volume 450 Setting Ventilator Tidal Volume 450 Setting Ventilator Tidal Volume 450 Setting Ventilator Tidal Volume 450 Setting Ventilator Tidal Volume 450 Setting Ventilator Tidal Volume 450 Setting Ventilator Tidal Volume 450 Setting Ventilator Respiratory Rate 16 Setting Ventilator Respiratory Rate 16 Setting Ventilator Respiratory Rate 16 Setting Ventilator Respiratory Rate 16 Setting Ventilator Respiratory Rate 16 Setting Ventilator Respiratory Rate 18 Setting Ventilator Respiratory Rate 16 Setting Ventilator Respiratory Rate 16 Setting Ventilator Respiratory Rate 16 Setting Ventilator Respiratory Rate 16 Setting Actual Respiratory Rate 19 Actual Respiratory Rate 25 Actual Respiratory Rate 21 Actual Respiratory Rate 18 Actual Respiratory Rate 16 Actual Respiratory Rate 18 Actual Respiratory Rate 16 Actual Respiratory Rate 16 Actual Respiratory Rate 17 Actual Respiratory Rate 16 Actual Respiratory Rate 17 Actual Respiratory Rate 16 Positive End Expiratory 5 Pressure Positive End Expiratory 5 Pressure Positive End Expiratory 5 Pressure Positive End Expiratory 5 Pressure Positive End Expiratory 5 Pressure Positive End Expiratory 5 Pressure Positive End Expiratory 5 Pressure Positive End Expiratory 5 Pressure Positive End Expiratory 5 Pressure Positive End Expiratory 5 Pressure Positive End Expiratory 5 Pressure Positive End Expiratory 5 Pressure Peak Inspiratory Airway 10 Pressure Peak Inspiratory Airway 11 Pressure Peak Inspiratory Airway 10 Pressure Peak Inspiratory Airway 27 Pressure Peak Inspiratory Airway 23 Pressure Peak Inspiratory Airway 22 Pressure Peak Inspiratory Airway 22 Pressure Peak Inspiratory Airway 24 Pressure Peak Inspiratory Airway 20 Pressure Peak Inspiratory Airway 19 Pressure Peak Inspiratory Airway 20 Pressure Peak Inspiratory Airway 19 Pressure Results - Laboratory Findings CBC and BMP: 02/17/18 03:55 02/17/18 04:00 ABG ABG pH 7.40 pH Units (7.32-7.45) 02/17/18 04:37 ABG pCO2 49 mmHg (35-45) H 02/17/18 04:37 ABG pO2 74 mmHg (85-104) L 02/17/18 04:37 ABG O2 Saturation 94 % (95-98) L 02/17/18 04:37 Abnormal lab findings: Abnormal lab results WBC 13.3 K/mcL (4.3-11.1) H 02/17/18 03:55 RBC 3.46 M/mcL (4.19-5.50) L 02/17/18 03:55 Hgb 10.9 g/dL (12.9-16.9) L 02/17/18 03:55 Hct 34.3 % (37.5-50.1) L 02/17/18 03:55 Band Neutrophils % 18.0 % (0-4) H 02/17/18 03:55 Neutrophils # 13.0 K/mcL (1.6-8.9) H 02/17/18 03:55 Lymphocytes # 0.3 K/mcL (0.6-4.6) L 02/17/18 03:55 ABG pCO2 49 mmHg (35-45) H 02/17/18 04:37 ABG pO2 74 mmHg (85-104) L 02/17/18 04:37 ABG HCO3 30 mEq/L (21-27) H 02/17/18 04:37 ABG Total CO2 31 mEq/L (20-26) H 02/17/18 04:37 ABG O2 Saturation 94 % (95-98) L 02/17/18 04:37 ABG Base Excess 4 mEq/L (-2 to 3) H 02/17/18 04:37 BUN 27 mg/dL (8-23) H 02/17/18 04:00 Creatinine 1.34 mg/dL (0.70-1.30) H 02/17/18 04:00 Est GFR (Non-Af Amer) 52 (> 60) L 02/17/18 04:00 Glucose 136 mg/dL (70-105) H 02/17/18 04:00 POC Glucose 122 mg/dL (70-99) H 02/16/18 23:06 Calcium 8.3 mg/dL (8.6-10.3) L 02/17/18 04:00 Venous Ioniz Calcium 1.11 mmol/L (1.15-1.35) L 02/17/18 04:23 Phosphorus 4.7 mg/dL (2.7-4.5) H 02/17/18 04:00 B-Natriuretic Peptide 238 pg/mL (Less than 100) H 02/16/18 10:37 Serum Total Protein 5.2 g/dL (6.4-8.9) L 02/17/18 04:00 Albumin 2.9 g/dL (3.5-5.7) L 02/17/18 04:00 Globulin 2.3 g/dL (2.4-3.5) L 02/17/18 04:00 Acetaminophen < 10 mcg/mL (10-20) L 02/17/18 03:55 - Microbiology Findings Microbiology Findings: Microbiology, Last 48 Hours 02/16/18 14:46 Legionella Antigen - Final Urine,[place] Streptococcus pneumoniae Antigen (M - Final - Clinical Findings Intake & Output: Intake & Output 02/16/18 02/17/18 02/17/18 23:59 07:59 15:59 Intake Total 460 / 460 133 / 133 Output Total 150 / 150 300 / 300 125 / 125 Balance 310 / 310 -167 / -167 -125 / -125 Weight 87.3 kg Consult Discharge Plan - Plan Referrals: NONE,PCP [Primary Care Provider] -
[2018-02-17 10:08] LABS: Bilirubin,Urine Negative (Negative); Clarity,Urine Cloudy (Clear); Color,Urine Yellow (Yellow); Glucose,Urine (UA) Normal (Normal); Ketones,Urine Negative (Negative); Specific Gravity,Urine 1.012 (1.010-1.025)
[2018-02-17 10:09] LABS: Blood,Urine Moderate (Negative); Leukocyte Esterase,Urine Moderate (Negative); Nitrite,Urine Negative (Negative); Protein,Urine 30 mg/dL (Neg-Trace); Urobilinogen,Urine Normal (Normal)
[2018-02-17 10:15] LABS: Bacteria,Urine Many per hpf (None-Few); Squamous Epithelial Cell,Urine Many per lpf (None-Few); WBC,Urine 30-50 per hpf (0-3)
[2018-02-17] MEDS: Norepinephrine 4 MG in D5% in Water 250 ML IVC SCH (13:23)
[2018-02-17] MEDS ORDERED: Aminoglycoside Consult 1 EACH MC ONE (14:15)
[2018-02-17] MEDS: *HR* HYDROcodone/Acet 10/325 mg TABLET PO PRN (14:30)
[2018-02-18] MEDS: Artificial Tears SOLN 15 ML BOTTLE BOTH EYES SCH ×2 (03:20→07:47)
[2018-02-18] MEDS: Dexmedetomidine HCl 400 MCG/100 ML MLS IVC SCH ×2 (03:34→10:28)
[2018-02-18 03:57] LABS: Basophils % 0.1 %; Hematocrit 32.7 % (37.5-50.1); Hemoglobin 10.6 g/dL (12.9-16.9); Immature Granulocytes % 0.6 % (0-4); Lymphocytes # 0.5 K/mcL (0.6-4.6); Lymphocytes % 3.9 %; Mean Corpuscular HGB Conc 32.4 g/dL (31.6-35.5); Mean Corpuscular Hemoglobin 31.8 pg (28.0-33.3); Mean Corpuscular Volume 98.2 fL (83.0-100.0); Monocytes # 0.2 K/mcL (0.0-1.3); Monocytes % 1.6 %; Neutrophils # 10.9 K/mcL (1.6-8.9); Platelet Count 171 K/mcL (140-400); Red Blood Count 3.33 M/mcL (4.19-5.50); Red Cell Distribution Width 13.8 % (11.5-14.5); Segmented Neutrophils % 93.8 %
[2018-02-18 04:16] LABS: Alanine Aminotransferase 13 Units/L (7-52); Albumin 2.8 g/dL (3.5-5.7); Albumin/Globulin Ratio 1.2 (1.1-2.2); Alkaline Phosphatase 48 Units/L (34-104); Aspartate Amino Transferase 17 Units/L (13-39); BUN/Creatinine Ratio 27 (6-26); Bilirubin,Total 0.3 mg/dL (0.3-1.0); Blood Urea Nitrogen 37 mg/dL (8-23); Calcium 8.2 mg/dL (8.6-10.3); Carbon Dioxide 32 mEq/L (23-29); Chloride 102 mEq/L (98-107); Globulin 2.3 g/dL (2.4-3.5); Glucose 128 mg/dL (70-105); Osmolality,Calculated 298 (280-300); Phosphorous 5.5 mg/dL (2.7-4.5); Potassium 4.5 mEq/L (3.5-5.1); Sodium 139 mEq/L (136-145); Total Protein 5.1 g/dL (6.4-8.9); eGFR For Non-African Americans 51 (> 60)
[2018-02-18] MEDS: Insulin LISPRO 300 UNITS/3 ML VIAL SQ SCH (04:55)
[2018-02-18] MEDS: *HR* Heparin 5,000 UNIT/ML VIAL SQ SCH ×2 (05:01→17:20)
[2018-02-18] MEDS: Piperacillin/Tazobactam 3.375 GM in 0.9 % Sodium Chloride Mini Bag 100 ML IVPB SCH (05:02)
[2018-02-18] MEDS ORDERED: Levofloxacin 750 MG/150 ML 750 MG/150 ML BAG IVPB SCH (07:00)
[2018-02-18] MEDS: methylPREDNISolone 125 MG/2 ML VIAL IVP SCH ×2 (07:46→16:09)
[2018-02-18] MEDS: Chlorhexidine Rinse 15 ML MOUTHWASH MM SCH (07:47)
--- NOTE | 2018-02-18 09:21 | Pulmonology Progress Note ---
Date of Encounter: 02/18/18 Time of Encounter: 09:20 Assessment and Plan (1) Acute and chronic respiratory failure with hypercapnia Current Visit: No Status: Acute Patient had developed this presentation secondary to COPD exacerbation and possible pneumonia with the opiates in the system complicated by acute on chronic diastolic heart failure did well on the spontaneous breathing trial and will be extubated today mainly in the night he might need BiPAP. 02/18 patient did well is today to continue bronchodilators, antibiotics diuresis as tolerated the patient is agreeable he is to BiPAP qualification for discharge. If he gets into respiratory distress overnight placement him on BiPAP 03/15. (2) Diastolic CHF, acute on chronic Current Visit: Yes Status: Acute Patient has acute on chronic diastolic heart failure will diurese as tolerated will need to control his afterload and preload adequately. To do diuresis as tolerated. (3) Acute exacerbation of chronic obstructive airways disease Current Visit: No Status: Acute Continue scheduled bronchodilators and broad-spectrum antibiotics. (4) Acute kidney injury superimposed on chronic kidney disease Current Visit: Yes Status: Acute Serum creatinine is stable (5) DVT prophylaxis Current Visit: Yes Status: Acute To continue Thromboprophylaxis . Subjective Principal diagnosis: acute on chronic respiratory failure with COPD and CHF exacerbation Interval history: Patient is feeling a lot better today denies any acute events overnight denies any chest pain or chest tightness not much cough or sputum production not much shortness of breath on rest had some episode of desaturation bili was getting cleaned up. Objective PUL Vital signs: Last Vital Signs Temp 97.3 F L 02/18/18 04:00 Pulse 56 02/18/18 07:30 Resp 22 02/18/18 07:30 BP 127/58 02/18/18 07:30 Pulse Ox 96 02/18/18 07:30 Auscultation: bilateral: diminished breath sounds (Basilar ), rales (scattered rales) Results - Laboratory Findings CBC and BMP: 02/18/18 03:30 02/18/18 03:30 ABG ABG pH 7.40 pH Units (7.32-7.45) 02/17/18 04:37 ABG pCO2 49 mmHg (35-45) H 02/17/18 04:37 ABG pO2 74 mmHg (85-104) L 02/17/18 04:37 ABG O2 Saturation 94 % (95-98) L 02/17/18 04:37 Abnormal lab findings: Abnormal lab results WBC 11.6 K/mcL (4.3-11.1) H 02/18/18 03:30 RBC 3.33 M/mcL (4.19-5.50) L 02/18/18 03:30 Hgb 10.6 g/dL (12.9-16.9) L 02/18/18 03:30 Hct 32.7 % (37.5-50.1) L 02/18/18 03:30 Band Neutrophils % 18.0 % (0-4) H 02/17/18 03:55 Neutrophils # 10.9 K/mcL (1.6-8.9) H 02/18/18 03:30 Lymphocytes # 0.5 K/mcL (0.6-4.6) L 02/18/18 03:30 ABG pCO2 49 mmHg (35-45) H 02/17/18 04:37 ABG pO2 74 mmHg (85-104) L 02/17/18 04:37 ABG HCO3 30 mEq/L (21-27) H 02/17/18 04:37 ABG Total CO2 31 mEq/L (20-26) H 02/17/18 04:37 ABG O2 Saturation 94 % (95-98) L 02/17/18 04:37 ABG Base Excess 4 mEq/L (-2 to 3) H 02/17/18 04:37 Carbon Dioxide 32 mEq/L (23-29) H 02/18/18 03:30 BUN 37 mg/dL (8-23) H 02/18/18 03:30 Creatinine 1.37 mg/dL (0.70-1.30) H 02/18/18 03:30 Est GFR (Non-Af Amer) 51 (> 60) L 02/18/18 03:30 BUN/Creatinine Ratio 27 (6-26) H 02/18/18 03:30 Glucose 128 mg/dL (70-105) H 02/18/18 03:30 POC Glucose 134 mg/dL (70-99) H 02/17/18 23:16 Calcium 8.2 mg/dL (8.6-10.3) L 02/18/18 03:30 Venous Ioniz Calcium 1.11 mmol/L (1.15-1.35) L 02/17/18 04:23 Phosphorus 5.5 mg/dL (2.7-4.5) H 02/18/18 03:30 B-Natriuretic Peptide 238 pg/mL (Less than 100) H 02/16/18 10:37 Serum Total Protein 5.1 g/dL (6.4-8.9) L 02/18/18 03:30 Albumin 2.8 g/dL (3.5-5.7) L 02/18/18 03:30 Globulin 2.3 g/dL (2.4-3.5) L 02/18/18 03:30 Urine Clarity Cloudy (Clear) A 02/17/18 09:37 Urine Protein 30 mg/dL (Neg-Trace) H 02/17/18 09:37 Urine Blood Moderate (Negative) H 02/17/18 09:37 Ur Leukocyte Esterase Moderate (Negative) H 02/17/18 09:37 Urine Microscopic RBC 5-15 per hpf (0-3) H 02/17/18 09:37 Urine Microscopic WBC 30-50 per hpf (0-3) H 02/17/18 09:37 Ur Squamous Epith Cells Many per lpf (None-Few) H 02/17/18 09:37 Urine Bacteria Many per hpf (None-Few) H 02/17/18 09:37 Ur Culture Indicated? NO. (NO) A 02/17/18 09:37 Stl C. diff Tox B Gene Positive (Negative) A 02/17/18 11:05 Acetaminophen < 10 mcg/mL (10-20) L 02/17/18 03:55 - Microbiology Findings Microbiology Findings: Microbiology, Last 48 Hours 02/17/18 08:54 Blood Culture - Preliminary Peripheral Venipuncture Culture is incubating and being continuously monitored for growth. Final report to follow. 02/17/18 08:54 Blood Culture - Preliminary Peripheral Venipuncture Culture is incubating and being continuously monitored for growth. Final report to follow. 02/16/18 14:46 Legionella Antigen - Final Urine,[place] Streptococcus pneumoniae Antigen (M - Final - Clinical Findings Intake & Output: Intake & Output 02/17/18 02/18/18 02/18/18 23:59 07:59 15:59 Intake Total 182.7 / 182.7 200 / 200 Output Total 300 / 300 300 / 300 Balance -117.3 / -117.3 -100 / -100 Consult Discharge Plan - Plan Referrals: NONE,PCP [Primary Care Provider] -
[2018-02-18] MEDS ORDERED: Vancomycin Oral Soln 125 MG/2.5 ML UDC PO SCH (10:00)
[2018-02-18] MEDS: Norepinephrine 4 MG in D5% in Water 250 ML IVC SCH (10:14)
[2018-02-18] MEDS: *HR* HYDROcodone/Acet 10/325 mg TABLET PO PRN ×2 (10:27→16:08)
[2018-02-18] MEDS ORDERED: D5% in Water 1,000 ML IVC PRN (10:51)
[2018-02-18] MEDS ORDERED: Dextrose Gel 15 GM/37.5 ML TUBE PO PRN (10:51)
[2018-02-18] MEDS ORDERED: Naloxone 0.4 MG/ML INJ IVP PRN (10:51)
[2018-02-18] MEDS ORDERED: *HR* Dextrose 50 % in Water (Syg) 50 ML SYRINGE IVP PRN (10:51)
[2018-02-18] MEDS ORDERED: Insulin LISPRO 300 UNITS/3 ML VIAL SQ SCH (12:00)
[2018-02-18] MEDS: Vancomycin Oral Soln 125 MG/2.5 ML UDC PO SCH ×3 (14:06→20:36)
[2018-02-19] MEDS: methylPREDNISolone 125 MG/2 ML VIAL IVP SCH ×2 (00:20→07:48)
[2018-02-19] MEDS ORDERED: *HR* LORazepam 2 MG/ML VIAL IVP ONE ×2 (01:23→20:07)
[2018-02-19] MEDS: *HR* HYDROcodone/Acet 10/325 mg TABLET PO PRN ×3 (01:49→20:41)
[2018-02-19] MEDS: *HR* Heparin 5,000 UNIT/ML VIAL SQ SCH ×2 (05:29→18:51)
[2018-02-19 05:39] LABS: Hematocrit 33.5 % (37.5-50.1); Hemoglobin 10.4 g/dL (12.9-16.9); Immature Granulocytes % 0.6 % (0-4); Lymphocytes # 0.4 K/mcL (0.6-4.6); Lymphocytes % 3.5 %; Mean Corpuscular Hemoglobin 31.1 pg (28.0-33.3); Mean Corpuscular Volume 100.3 fL (83.0-100.0); Mean Platelet Volume 10.1 fL (9.4-12.4); Monocytes # 0.2 K/mcL (0.0-1.3); Monocytes % 1.7 %; Neutrophils # 9.7 K/mcL (1.6-8.9); Platelet Count 210 K/mcL (140-400); Red Blood Count 3.34 M/mcL (4.19-5.50); Red Cell Distribution Width 14.1 % (11.5-14.5); Segmented Neutrophils % 94.2 %
[2018-02-19 05:58] LABS: Alanine Aminotransferase 13 Units/L (7-52); Albumin/Globulin Ratio 1.4 (1.1-2.2); Alkaline Phosphatase 44 Units/L (34-104); Aspartate Amino Transferase 14 Units/L (13-39); BUN/Creatinine Ratio 31 (6-26); Bilirubin,Total 0.2 mg/dL (0.3-1.0); Blood Urea Nitrogen 40 mg/dL (8-23); Calcium 8.3 mg/dL (8.6-10.3); Carbon Dioxide 32 mEq/L (23-29); Chloride 105 mEq/L (98-107); Globulin 2.1 g/dL (2.4-3.5); Glucose 104 mg/dL (70-105); Magnesium 2.3 mg/dL (1.6-2.6); Osmolality,Calculated 300 (280-300); Phosphorous 3.4 mg/dL (2.7-4.5); Potassium 4.2 mEq/L (3.5-5.1); Sodium 140 mEq/L (136-145); Total Protein 5.1 g/dL (6.4-8.9); eGFR For Non-African Americans 55 (> 60)
[2018-02-19] MEDS: Vancomycin Oral Soln 125 MG/2.5 ML UDC PO SCH ×4 (07:50→20:41)
[2018-02-19] MEDS ORDERED: Dextrose Gel 15 GM/37.5 ML TUBE PO PRN (09:52)
[2018-02-19] MEDS: Levofloxacin 750 MG/150 ML 750 MG/150 ML BAG IVPB SCH ×2 (12:51→15:40)
[2018-02-19] MEDS: MethylPREDNISolone 40 MG/ML VIAL IVP SCH (16:44)
--- NOTE | 2018-02-19 19:41 | Internal Med Progress Note ---
Hospitalist Progress Note - Encounter Date of Encounter: 02/20/18 Time of Encounter: 19:41 - Subjective Interval History: Pt having some conversational dyspnea. He denies chest pain. He denies fever chills, N/V. Positive cough with sputum. - Exam Vitals: Temp Pulse Resp BP Pulse Ox 98.7 F 96 17 161/82 94 02/19/18 19:23 02/19/18 19:23 02/19/18 19:23 02/19/18 19:23 02/19/18 19:23 Exam: General appearance: no acute distress. wide neck, morbidly obese. Eyes: nonicteric ENT: oropharynx dry Neck: supple Effort: normal Lung auscultation: bilateral: scattered rhonci Cardiovascular: regular rate and rhythm Gastrointestinal: soft, non-tender, non-distended Integumentary: normal Extremities: no cyanosis, pulses normal, edema (2+ pitting edema to mid hernandez B/L) Musculoskeletal: no deformities other (pupils pinpoint, unable to follow commands) - Assessment and Plan (1) Acute and chronic respiratory failure with hypercapnia Current Visit: No Status: Acute Assessment and Plan: He is slowly improving. WBC 11.6. He will benefit from few more days of antibiotic and resp treatments. Pt was found down at home and was somnolent. Narcan was administered without effect. Pt became more unresponsive and was intubated at [place] Initial ABG - pH 7.21, pCO2 112, pO2 168, HCO3 45 Repeat ABG here - pH 7.33, pCO2 67, pO2 108, HCO3 35. Pt was transfered to ICU at [place] and started on Vanc and Zosyn for suspected PNA. WBC at [place] was 23.8. He was hypotensive and tachycardic. Chest x ray did not show infiltrate or opacity. Chest x ray 02/16/2018 XR/XR chest 1V portable IMPRESSION: 1. Interval placement of a right jugular central venous catheter with the tip projecting at the level of the SVC. 2. Otherwise, no gross change in the appearance of the chest. (2) Acute exacerbation of chronic obstructive airways disease Current Visit: No Status: Acute Assessment and Plan: Continue scheduled and prn bronchodilators. Steroids and broad-spectrum antibiotics. BiPAP HS and PRN (3) Severe sepsis Current Visit: Yes Status: Acute Assessment and Plan: Of unclear etiology, Resolved. Pt initial WBC at [place] 23.8. Todya 02/19/2018 11.6 Hypotensive, tachycardic and tachypnic Lactic acid wnl at 1.4, CPK elevated at 329 Pt received 4L fluid bolus and Dopamine LEATHER GRADER - switched Dopamine to Levophed upon arrival Given Vanc, Zosyn and Levaquin at [place] LEATHER GRADER Repeat labs showed WBC 16.9, trop wnl, cpk 182 down from 442 Legionella, strep neg Resp panel neg Blood cultures in progress. (4) Diastolic CHF, acute on chronic Current Visit: Yes Status: Acute Assessment and Plan: Patient has acute on chronic diastolic heart failure. Will continue with Lasix 40 mg PO QD as tolerated. Will monitor renal function. (5) Acute kidney injury superimposed on chronic kidney disease Current Visit: Yes Status: Acute Assessment and Plan: JOHANNE resolved with IVF hydration. Will monitor renal function DVT Prophylaxis: Heparin - Summary of Assessment and Plan Summary of Assessment and Plan: HPI: Mr. Vickers is a 72 year old male who was transferred here from [place] after being found down at home. He was unresponsive with pinpoint pupils. He was gien a dose of Narcan without effect. He was initially responsive to voice at [place] but began deteriorating and was subsequently intubated for hypercapnic respiratory failure. Head CT was done and did not demonstrate any acute brain infarct or hemorrhage. CXR showed a R lower lung opacity, likely atelectasis vs pneumonia. Initial labs showed leukocytosis of 23.8 and a mild anemia, hyperkalemia and possible JOHANNE vs CKD with Cre of 1.68. Cpk mildly elevated at 329. Lactic and troponin wnl. Due to his elevated white count, tachycardia, tachypnea, hypotension and source of infection he was given a fluid bolus and started on pressors. A central line was placed at [place] when asked by accepting Hospitalist after they tried to transfer the patient with dopamine administration through a peripheral line. The patient arrived to [facility] ICU at appx 1000 awake but unable to follow commands. Repeat labs were ordered, as well as an EKG and stat echo. Pt received 4L of fluids LEATHER GRADER which is more than adequate fluid resuscitation for the sepsis bolus. He was no longer hypotensive upon arrival, and satting well. Will do a sepsis re-evaluation and follow up on labs and imaging studies closely. Pt currently unresponsive and intubated, unable to determine code status at this time. The family will be contacted to try to determine code status today. - Time Spent with Patient Total time spent is greater than 50% in coordination of care (as documented) at patient's floor/unit and/or counseling patient: less than 15 minutes Plan of Care Discussed with: patient Internal Medicine: Result - Labs CBC & Chem 7: 02/19/18 04:50 02/19/18 04:50 Labs: Short CBC 02/19/18 Range/Units 04:50 WBC 10.3 (4.3-11.1) K/mcL Hgb 10.4 L (12.9-16.9) g/dL Hct 33.5 L (37.5-50.1) % Plt Count 210 (140-400) K/mcL Neutrophils # 9.7 H (1.6-8.9) K/mcL BMP 02/19/18 04:50 Sodium 140 Potassium 4.2 Chloride 105 Carbon Dioxide 32 H BUN 40 H Creatinine 1.28 Glucose 104 Calcium 8.3 L Liver Function 02/19/18 Range/Units 04:50 Total Bilirubin 0.2 L (0.3-1.0) mg/dL AST 14 (13-39) Units/L ALT 13 (7-52) Units/L Alkaline Phosphatase 44 (34-104) Units/L Albumin 3.0 L (3.5-5.7) g/dL - ABG Interpretation ABG results: ABG ABG pH 7.40 pH Units (7.32-7.45) 02/17/18 04:37 ABG pCO2 49 mmHg (35-45) H 02/17/18 04:37 ABG pO2 74 mmHg (85-104) L 02/17/18 04:37 ABG O2 Saturation 94 % (95-98) L 02/17/18 04:37 Consult Discharge Plan - Plan Referrals: NONE,PCP [Primary Care Provider] -
[2018-02-20] MEDS: MethylPREDNISolone 40 MG/ML VIAL IVP SCH ×3 (00:19→17:14)
[2018-02-20] MEDS: *HR* Heparin 5,000 UNIT/ML VIAL SQ SCH ×2 (05:08→17:14)
[2018-02-20] MEDS ORDERED: Levofloxacin 750 MG/150 ML 750 MG/150 ML BAG IVPB SCH (07:00)
[2018-02-20] MEDS: Levofloxacin 750 MG/150 ML 750 MG/150 ML BAG IVPB SCH (10:25)
[2018-02-20] MEDS: Vancomycin Oral Soln 125 MG/2.5 ML UDC PO SCH ×4 (10:25→20:50)
[2018-02-20] MEDS: *HR* HYDROcodone/Acet 10/325 mg TABLET PO PRN ×2 (10:25→20:54)
[2018-02-20] MEDS ORDERED: Albuterol 2.5 MG/3 ML NEBULIZER IH PRN (12:26)
[2018-02-20] MEDS: Gabapentin 300 MG CAPSULE PO SCH ×2 (14:02→20:49)
[2018-02-20] MEDS: Metoprolol XL (24 HR) Succ 25 MG TAB.ER.24H PO SCH (14:02)
--- NOTE | 2018-02-20 16:14 | Palliative - Consult Note ---
Date of Encounter: 02/20/18 Time of Encounter: 16:15 - Assessment and Plan (1) Dyspnea Current Visit: Yes Status: Acute Assessment and plan: Continues treatment with steroids/bronchodilators/oxygen/bipap/atb. Was successfully extubated on Monday. Monitor. Qualifiers: Dyspnea type: unspecified Qualified Code(s): R06.00 - Dyspnea, unspecified (2) Chronic back pain greater than 3 months duration Current Visit: Yes Status: Acute Assessment and plan: He is currently on his home regimen of [place] and Gabapentin TID. He has utilized [place] x3 last 24 hours and states this has been effective. MOnitor (3) Advanced care planning/counseling discussion Current Visit: Yes Status: Acute Assessment and plan: 60 min discussion with patient and his good friend of 67 years, Tere Gavin. Patient lives alone with around 20hours a week of [facility] care and visiting nurse 2 times weekly. Has oxygen and bipap at home, states he "uses bipap when he really needs it". He does not have living family close to him, and states that Adal is his financial POA. Discussed the importance of healthcare power of trial attorney as well, and he does desire to make Adal his primary decision [facility]. Discussed code status at length, and patient decided to transition to DNRCC-Arrest. He does not want resuscitation in event of cardiac arrest, but desires aggressive care up to that point, and is ok with short term intubation. Adal was present for most of conversation and to hear patient wishes, but he did leave to superintendent track spouse. When he returns tomorrow, will complete POA/DNR forms with patient. Code status was changed in [facility] to reflect his wishes. He desires to go home upon discharge. Will f/u in am. (4) Diastolic CHF, acute on chronic Current Visit: Yes Status: Acute (5) Acute exacerbation of chronic obstructive airways disease Current Visit: No Status: Acute (6) C. difficile colitis Current Visit: No Status: Acute Assessment and plan: On Oral Vancomycin. Palliative-CN HPI - Data of Consult Consult date: 02/20/18 Requesting Physician: Hussein Carlson MD Primary Care Provider: PCP NONE - Consult Narrative History of present illness: Mr. Vickers is a 72 year old male who was transferred here from [place] after being found down at home. He was unresponsive with pinpoint pupils, and has a history of chronic opioid use at home, so was given a dose of Narcan without effect. He was initially responsive to voice at [place] but began deteriorating and was subsequently intubated for hypercapnic respiratory failure. Head CT was done and did not demonstrate any acute brain infarct or hemorrhage. CXR showed a R lower lung opacity, likely atelectasis vs pneumonia. Initial labs showed leukocytosis of 23.8 and a mild anemia, hyperkalemia and possible JOHANNE vs CKD with Cre of 1.68. Cpk mildly elevated at 329. Lactic and troponin wnl. He was initially treated for sepsis, and required vasopressors for a short time. His condition improved and he was extubated Monday. He was then sent to medical floor, for continued treatment of COPD exacerbation and C-diff infection. He has multiple health problems including: arthritis, asthma, CHF, COPD, coronary artery disease, GERD, hyperlipidemia, hypertension, myocardial infarction, renal disease. Palliative was consulted to assist with symptom management as well as goals of care/end of life preference discussion. Upon my visit, he is awake and alert, and speaking with his friend. He c/o discomfort from bed and states it has aggravated his back pain. He still has rectal tube in place draining large amount liquid stool. Frustrated with being in hospital and hopes he is discharged home before the weekend. States breathing slowly improving. Denies anxiety/nausea. States he had recent teeth pulled and awaiting visit for dentures at the end of the month, so that has affected his oral intake somewhat. CC: Hussein Carlson MD - Time Spent with Patient Time: Total time spent is greater than 50% in coordination of care (as documented) at patient's floor/unit and/or counseling patient: Time with patient: 60 minutes Past Med Surg Social Fam HX - Past Medical History Medical history: arthritis, asthma, CHF, COPD, coronary artery disease, GERD, hyperlipidemia, hypertension, myocardial infarction, renal disease, other Additional medical history: MYRIAM non compliant with c pap. C-Diff Psychiatric history: no psych history - Past Surgical History Surgical History: cataract, orthopedic, other, tonsilectomy, other Additional surgical history: ORIF right wrist repair of double fx of right arm Clavicle repair - Social History Smoking Status: Current some day smoker Smokeless Tobacco Status: No Alcohol use: none Drug use: none, other - Family History Father Family Member Ethnicity: Non- Living Status: Hx Family Cardiac Disorders: Yes ([place], CHF, HTN, Stroke) Hx Family Endocrine Disorder: Yes (DM) Mother Family Member Ethnicity: Non- Living Status: Hx Family Cardiac Disorders: Yes (Stroke, CHF) Brother Family Member Ethnicity: Non- Living Status: Hx Family Cardiac Disorders: Yes (CHF) Hx Family Respiratory Disorders: Yes (COPD, Mesothelioma) Medications and Allergies Albuterol Neb [Proventil Neb] 2.5 mg IH [id number] PRN #1 inh 12/12/17 [Rx] Albuterol Sulfate [Proair Hfa] 2 puff IH Q4H PRN #1 hfa.aer.ad 12/12/17 [Rx] Budesonide/Formoterol 160/4.5 [Symbicort 160/4.5] 2 puff IH BIDR #1 inhaler 12/12/17 [Rx] Clopidogrel [Plavix] 75 mg PO DAILY 30 Days #30 tablet 12/12/17 [Rx] Cyanocobalamin (Vitamin B-12) [Vitamin B-12] 1,000 mcg PO DAILY #30 tablet 12/12/17 [Rx] Isosorbide MONOnitrate (24 HR) [Imdur] 60 mg PO HS #30 tab.er.24h 12/12/17 [Rx] Oxygen 2 l NS AD #1 each 12/12/17 [Rx] traZODone [TraZODone] 50 mg PO HS #30 tablet 12/12/17 [Rx] Cetirizine HCl [Zyrtec] 10 mg PO DAILY 01/23/18 [History] Hydrocodone/Acetaminophen [Hydrocodon-Acetaminophn 10-325] 1 each PO Q6H PRN 01/23/18 [History] Atorvastatin Calcium [Lipitor] 20 mg PO HS 01/29/18 [History] Cholecalciferol (Vitamin D3) [Vitamin D3] 10,000 unit PO WE 01/29/18 [History] Fluticasone Propionate Nasal [Flonase] 2 spr NS DAILY 01/29/18 [History] Fluticasone/Vilanterol [Breo Ellipta 200-25 Mcg INH] 1 puff IH DAILY 01/29/18 [History] Furosemide [Lasix] 40 mg PO DAILY 01/29/18 [History] Gabapentin [Neurontin] 300 mg PO TID 01/29/18 [History] Metoprolol XL (24 HR) Succ [Toprol Xl] 25 mg PO DAILY 01/29/18 [History] Omeprazole [PriLOSEC] 20 mg PO DAILY 01/29/18 [History] Ranitidine HCl [Acid Merchandising Coordinator] 150 mg PO BID 01/29/18 [History] Temazepam [Restoril] 15 mg PO HS 01/29/18 [History] Tiotropium [Spiriva] 18 mcg PO DAILY 01/29/18 [History] Aspirin Enteric Coated [Aspirin EC] 81 mg PO DAILY #30 tablet. 01/31/18 [Rx] Doxycycline 100 mg PO BID #10 capsule 02/11/18 [Rx] PredniSONE [Deltasone] 20 mg PO DAILY #5 tablet 02/11/18 [Rx] Allergy/AdvReac Type Severity Reaction Status Date / Time Erythromycin Base Allergy Hives Verified 01/29/18 10:03 Penicillins [PCN] Allergy Hives Verified 01/29/18 10:03 [id number] Reductase Allergy Itching Verified 01/29/18 10:03 Inhibitor [Statins] All systems: reviewed and no additional remarkable complaints except as stated (chronic back pain, shortness of breath at rest, generalized weakness, diarrhea) Palliative Care-Exam - Constitutional Vitals: Temp Pulse Resp BP Pulse Ox 98.5 F 90 16 173/84 96 02/20/18 15:36 02/20/18 15:36 02/20/18 15:36 02/20/18 15:36 02/20/18 15:36 General appearance: Present: no acute distress - Head Head Exam: Present: normal inspection, normocephalic - Eye Eye exam: Present: normal appearance, PERRL - Respiratory Additional comments: Breath sounds diminished throughout all lung cobian - Cardiovascular Cardiovascular exam: Present: +S1, +S2 - GI/Abdominal Exam GI/Abdominal exam: Present: distended, soft additional comments: Rectal tube with liquid green stool - Extremities Exam Extremities exam: Present: normal capillary refill, normal inspection - Neurological Exam Neurological exam: Present: alert, oriented X3, strengths equal and symetr throughout - Skin Skin exam: Present: dry, pallor, warm Internal Medicine - CN: Reslt - Labs CBC & Chem 7: 02/19/18 04:50 02/19/18 04:50 - ABG Interpretation ABG results: ABG ABG pH 7.40 pH Units (7.32-7.45) 02/17/18 04:37 ABG pCO2 49 mmHg (35-45) H 02/17/18 04:37 ABG pO2 74 mmHg (85-104) L 02/17/18 04:37 ABG O2 Saturation 94 % (95-98) L 02/17/18 04:37 Consult Discharge Plan - Plan Referrals: NONE,PCP [Primary Care Provider] - Palliative Quality Palliative Quality: Screen for Code Status: Yes, Screen for Goals of Care: Yes, Screen for Pain: Yes, If Pain Regimen Started, Initiate Bowel Regimen: NA (C- diff/diarrhea), Screen for Nausea/Vomitting: Yes Code Status: 02/16/18 11:07 Resuscitation Status: Active [RES] Routine Comment: Resuscitation Status: Full Code 02/20/18 16:10 DNR [Resuscitation Status: Active] [RES] Routine Comment: Resuscitation Status: DNR-Comfort Care-Arrest Palliative Scale - Palliative Performance Scale How ambulatory is this patient?: Mainly sit / lie What is patient's level of activity and evidence of disease?: Unable to do any work, Extensive disease How much self-care assistance does patient require?: Occasional assistance necessary How much oral intake does the patient have?: Normal or reduced What is this patient's level of consciousness?: Full Palliative Performance Score: 50 %
[2018-02-20] MEDS: Ipratropium/Albuterol Neb 3 ML IH SCH ×3 (16:28→22:20)
--- NOTE | 2018-02-20 17:30 | Internal Med Progress Note ---
Hospitalist Progress Note - Encounter Date of Encounter: 02/20/18 Time of Encounter: 17:25 - Subjective Interval History: Pt having some conversational dyspnea. He denies chest pain. He denies fever chills, N/V. Positive cough with sputum. - Exam Vitals: Temp Pulse Resp BP Pulse Ox 98.5 F 90 16 173/84 95 02/20/18 15:36 02/20/18 15:36 02/20/18 16:28 02/20/18 15:36 02/20/18 16:28 Exam: General appearance: no acute distress. wide neck, morbidly obese. Eyes: nonicteric ENT: oropharynx dry Neck: supple Effort: normal Lung auscultation: bilateral: scattered rhonci but improving Cardiovascular: regular rate and rhythm Gastrointestinal: soft, non-tender, non-distended Integumentary: normal Extremities: no cyanosis, pulses normal, edema (2+ pitting edema to mid hernandez B/L) Musculoskeletal: no deformities other (pupils pinpoint, unable to follow commands) - Assessment and Plan (1) Acute and chronic respiratory failure with hypercapnia Current Visit: No Status: Acute Assessment and Plan: He is slowly improving. WBC 11.6 down 10.3 He will benefit from few more days of antibiotic and resp treatments. Pt is currently sating 95% on 4L [place]. Will attempt to wean down oxygen requirement back to his baseline which is 3L NC. Pt was found down at home and was somnolent. Narcan was administered without effect. Pt became more unresponsive and was intubated at [place] Initial ABG - pH 7.21, pCO2 112, pO2 168, HCO3 45 Repeat ABG here - pH 7.33, pCO2 67, pO2 108, HCO3 35. Pt was transfered to ICU at [place] and started on Vanc and Zosyn for suspected PNA. WBC at [place] was 23.8. He was hypotensive and tachycardic. Chest x ray did not show infiltrate or opacity. Chest x ray 02/16/2018 XR/XR chest 1V portable IMPRESSION: 1. Interval placement of a right jugular central venous catheter with the tip projecting at the level of the SVC. 2. Otherwise, no gross change in the appearance of the chest. Consulted palliative care to see and pt changed code status to DNR CC. Consulting PT/OT to see in am. (2) Acute exacerbation of chronic obstructive airways disease Current Visit: No Status: Acute Assessment and Plan: Continue scheduled and prn bronchodilators. Steroids and broad-spectrum antibiotics. BiPAP HS and PRN (3) Severe sepsis Current Visit: Yes Status: Resolved Assessment and Plan: Of unclear etiology, Resolved. Pt initial WBC at [place] 23.8. 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 (4) Diastolic CHF, acute on chronic Current Visit: Yes Status: Acute Assessment and Plan: Patient has acute on chronic diastolic heart failure. Will continue with Lasix 40 mg PO QD as tolerated. Will monitor renal function. (5) Acute kidney injury superimposed on chronic kidney disease Current Visit: Yes Status: Acute Assessment and Plan: JOHANNE resolved with IVF hydration. Will monitor renal function DVT Prophylaxis: Heparin - Summary of Assessment and Plan Summary of Assessment and Plan: HPI: Mr. Vickers is a 72 year old male who was transferred here from [place] after being found down at home. He was unresponsive with pinpoint pupils. He was gien a dose of Narcan without effect. He was initially responsive to voice at [place] but began deteriorating and was subsequently intubated for hypercapnic respiratory failure. Head CT was done and did not demonstrate any acute brain infarct or hemorrhage. CXR showed a R lower lung opacity, likely atelectasis vs pneumonia. Initial labs showed leukocytosis of 23.8 and a mild anemia, hyperkalemia and possible JOHANNE vs CKD with Cre of 1.68. Cpk mildly elevated at 329. Lactic and troponin wnl. Due to his elevated white count, tachycardia, tachypnea, hypotension and source of infection he was given a fluid bolus and started on pressors. A central line was placed at [place] when asked by accepting Hospitalist after they tried to transfer the patient with dopamine administration through a peripheral line. The patient arrived to [facility] ICU at appx 1000 awake but unable to follow commands. Repeat labs were ordered, as well as an EKG and stat echo. 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 He was no longer hypotensive upon arrival, and satting well. Will do a sepsis re-evaluation and follow up on labs and imaging studies closely. Pt currently unresponsive and intubated, unable to determine code status at this time. The family will be contacted to try to determine code status today. - Time Spent with Patient Total time spent is greater than 50% in coordination of care (as documented) at patient's floor/unit and/or counseling patient: less than 15 minutes Plan of Care Discussed with: patient Internal Medicine: Result - Labs CBC & Chem 7: 02/19/18 04:50 02/19/18 04:50 - ABG Interpretation ABG results: ABG ABG pH 7.40 pH Units (7.32-7.45) 02/17/18 04:37 ABG pCO2 49 mmHg (35-45) H 02/17/18 04:37 ABG pO2 74 mmHg (85-104) L 02/17/18 04:37 ABG O2 Saturation 94 % (95-98) L 02/17/18 04:37 Consult Discharge Plan - Plan Referrals: NONE,PCP [Primary Care Provider] -
[2018-02-20 17:49] LABS: Basophils % 0.1 %; Hematocrit 34.9 % (37.5-50.1); Hemoglobin 10.9 g/dL (12.9-16.9); Immature Granulocytes % 1.1 % (0-4); Lymphocytes # 0.4 K/mcL (0.6-4.6); Lymphocytes % 4.2 %; Mean Corpuscular HGB Conc 31.2 g/dL (31.6-35.5); Mean Corpuscular Hemoglobin 31.6 pg (28.0-33.3); Mean Corpuscular Volume 101.2 fL (83.0-100.0); Mean Platelet Volume 9.6 fL (9.4-12.4); Monocytes # 0.2 K/mcL (0.0-1.3); Monocytes % 2.7 %; Neutrophils # 8.2 K/mcL (1.6-8.9); Platelet Count 186 K/mcL (140-400); Red Blood Count 3.45 M/mcL (4.19-5.50); Red Cell Distribution Width 13.8 % (11.5-14.5); Segmented Neutrophils % 91.9 %
[2018-02-20 18:06] LABS: BUN/Creatinine Ratio 29 (6-26); Blood Urea Nitrogen 34 mg/dL (8-23); Calcium 8.4 mg/dL (8.6-10.3); Carbon Dioxide 35 mEq/L (23-29); Chloride 104 mEq/L (98-107); Glucose 148 mg/dL (70-105); Osmolality,Calculated 304 (280-300); Potassium 4.3 mEq/L (3.5-5.1); Sodium 142 mEq/L (136-145); eGFR For Non-African Americans > 60 (> 60)
[2018-02-20] MEDS: Isosorbide MONOnitrate (24 HR) 60 MG TAB.ER.24H PO SCH (20:49)
[2018-02-21] MEDS: MethylPREDNISolone 40 MG/ML VIAL IVP SCH ×3 (00:24→17:07)
[2018-02-21] MEDS: Ipratropium/Albuterol Neb 3 ML IH SCH ×4 (04:00→22:08)
[2018-02-21] MEDS: *HR* Heparin 5,000 UNIT/ML VIAL SQ SCH ×2 (05:00→17:07)
[2018-02-21 05:18] LABS: Basophils % 0.1 %; Hemoglobin 10.3 g/dL (12.9-16.9); Immature Granulocytes % 0.5 % (0-4); Lymphocytes # 0.3 K/mcL (0.6-4.6); Lymphocytes % 4.2 %; Mean Corpuscular HGB Conc 31.2 g/dL (31.6-35.5); Mean Corpuscular Hemoglobin 31.2 pg (28.0-33.3); Mean Platelet Volume 9.5 fL (9.4-12.4); Monocytes # 0.1 K/mcL (0.0-1.3); Monocytes % 1.3 %; Neutrophils # 7.2 K/mcL (1.6-8.9); Platelet Count 175 K/mcL (140-400); Red Cell Distribution Width 13.5 % (11.5-14.5); Segmented Neutrophils % 93.9 %
[2018-02-21 05:37] LABS: BUN/Creatinine Ratio 29 (6-26); Blood Urea Nitrogen 33 mg/dL (8-23); Calcium 8.3 mg/dL (8.6-10.3); Carbon Dioxide 33 mEq/L (23-29); Chloride 105 mEq/L (98-107); Glucose 150 mg/dL (70-105); Osmolality,Calculated 302 (280-300); Potassium 4.5 mEq/L (3.5-5.1); Sodium 141 mEq/L (136-145); eGFR For Non-African Americans > 60 (> 60)
[2018-02-21] MEDS: Metoprolol XL (24 HR) Succ 25 MG TAB.ER.24H PO SCH (09:55)
[2018-02-21] MEDS: Furosemide 40 MG TABLET PO SCH (09:55)
[2018-02-21] MEDS: Gabapentin 300 MG CAPSULE PO SCH ×3 (09:55→20:18)
[2018-02-21] MEDS: levoFLOXacin 750 MG TABLET PO SCH (09:55)
[2018-02-21] MEDS: Vancomycin Oral Soln 125 MG/2.5 ML UDC PO SCH ×5 (10:02→20:18)
--- NOTE | 2018-02-21 10:42 | Palliative Progress Note ---
Date of Encounter: 02/21/18 Time of Encounter: 10:40 - Assessment and plan (1) Dyspnea Current Visit: Yes Status: Acute Assessment and plan: Breathing has improved. Steroids starting to be decreased per hospitalist. Continues with Solumedrol, Bronchodilators, Oxygen almost down to baseline. Monitor Qualifiers: Dyspnea type: unspecified Qualified Code(s): R06.00 - Dyspnea, unspecified (2) Chronic back pain greater than 3 months duration Current Visit: Yes Status: Acute Assessment and plan: Continues with [place] and Gabapentin. Utilized [place] x2 last 24 hours (3) Advanced care planning/counseling discussion Current Visit: Yes Status: Acute Assessment and plan: Scrap Sawyer from [employer] here to visit patient. He denies any further discharge needs, and refuses rehab. [facility] Patient did complete medical POA - appointing Tere Gavin, friend, his power of compliance attorney for healthcare. Also completed DNR-CC Arrest state form. Still ok with aggressive care and short term intubation, but does not want resuscitation for cardiac arrest. Copies provided to POA, patient, and given to [employer] worker per pt request. (4) Diastolic CHF, acute on chronic Current Visit: Yes Status: Acute (5) Acute exacerbation of chronic obstructive airways disease Current Visit: No Status: Acute (6) C. difficile colitis Current Visit: No Status: Acute - Time Spent With Patient Total time spent is greater than 50% in coordination of care (as documented) at patient's floor/unit and/or counseling patient: - Subjective Interval history: Patient up in chair and feeling better. His back pain better out of bed. States breathing much better today. [employer] social media director at bedside. - Constitutional Vitals: Abnormal lab results RBC 3.30 M/mcL (4.19-5.50) L 02/21/18 04:50 Hgb 10.3 g/dL (12.9-16.9) L 02/21/18 04:50 Hct 33.0 % (37.5-50.1) L 02/21/18 04:50 MCHC 31.2 g/dL (31.6-35.5) L 02/21/18 04:50 Band Neutrophils % 18.0 % (0-4) H 02/17/18 03:55 Lymphocytes # 0.3 K/mcL (0.6-4.6) L 02/21/18 04:50 ABG pCO2 49 mmHg (35-45) H 02/17/18 04:37 ABG pO2 74 mmHg (85-104) L 02/17/18 04:37 ABG HCO3 30 mEq/L (21-27) H 02/17/18 04:37 ABG Total CO2 31 mEq/L (20-26) H 02/17/18 04:37 ABG O2 Saturation 94 % (95-98) L 02/17/18 04:37 ABG Base Excess 4 mEq/L (-2 to 3) H 02/17/18 04:37 Carbon Dioxide 33 mEq/L (23-29) H 02/21/18 04:50 BUN 33 mg/dL (8-23) H 02/21/18 04:50 BUN/Creatinine Ratio 29 (6-26) H 02/21/18 04:50 Glucose 150 mg/dL (70-105) H 02/21/18 04:50 POC Glucose 181 mg/dL (70-99) H 02/20/18 20:22 Calculated Osmolality 302 (280-300) H 02/21/18 04:50 Calcium 8.3 mg/dL (8.6-10.3) L 02/21/18 04:50 Venous Ioniz Calcium 1.11 mmol/L (1.15-1.35) L 02/17/18 04:23 Total Bilirubin 0.2 mg/dL (0.3-1.0) L 02/19/18 04:50 B-Natriuretic Peptide 238 pg/mL (Less than 100) H 02/16/18 10:37 Serum Total Protein 5.1 g/dL (6.4-8.9) L 02/19/18 04:50 Albumin 3.0 g/dL (3.5-5.7) L 02/19/18 04:50 Globulin 2.1 g/dL (2.4-3.5) L 02/19/18 04:50 Urine Clarity Cloudy (Clear) A 02/17/18 09:37 Urine Protein 30 mg/dL (Neg-Trace) H 02/17/18 09:37 Urine Blood Moderate (Negative) H 02/17/18 09:37 Ur Leukocyte Esterase Moderate (Negative) H 02/17/18 09:37 Urine Microscopic RBC 5-15 per hpf (0-3) H 02/17/18 09:37 Urine Microscopic WBC 30-50 per hpf (0-3) H 02/17/18 09:37 Ur Squamous Epith Cells Many per lpf (None-Few) H 02/17/18 09:37 Urine Bacteria Many per hpf (None-Few) H 02/17/18 09:37 Ur Culture Indicated? NO. (NO) A 02/17/18 09:37 Stl C. diff Tox B Gene Positive (Negative) A 02/17/18 11:05 Acetaminophen < 10 mcg/mL (10-20) L 02/17/18 03:55 General appearance: Present: no acute distress - Respiratory Respiratory exam: Present: decreased breath sounds, CTAB Additional comments: Faint expiratory wheezes - Cardiovascular Cardiovascular exam: Present: +S1, +S2 - GI/Abdominal GI/Abdominal exam: Present: normal bowel sounds, soft - Additional comments: Voids per urinal - Extremities Exam Extremities exam: Present: normal capillary refill, normal inspection - Neurological Exam Neurological exam: Present: alert, oriented X3, strengths equal and symetr throughout - Skin Skin exam: Present: dry, pallor, warm Palliative Quality Palliative Quality: Screen for Code Status: Yes, Screen for Goals of Care: Yes, Screen for Pain: Yes, If Pain Regimen Started, Initiate Bowel Regimen: NA (C- diff/diarrhea), Screen for Nausea/Vomitting: Yes Code Status: 02/16/18 11:07 Resuscitation Status: Active [RES] Routine Comment: Resuscitation Status: Full Code 02/20/18 16:10 DNR [Resuscitation Status: Active] [RES] Routine Comment: Resuscitation Status: DNR-Comfort Care-Arrest - Labs CBC & Chem 7: 02/21/18 04:50 02/21/18 04:50 Labs: Laboratory Results - last 24 hr 02/19/18 02/20/18 02/20/18 19:20 07:31 17:30 WBC 8.9 RBC 3.45 L Hgb 10.9 L Hct 34.9 L MCV 101.2 H MCH 31.6 MCHC 31.2 L RDW 13.8 Plt Count 186 MPV 9.6 Immature Gran % 1.1 Seg Neutrophils % 91.9 Lymphocytes % 4.2 Monocytes % 2.7 Eosinophils % 0.0 Basophils % 0.1 Neutrophils # 8.2 Lymphocytes # 0.4 L Monocytes # 0.2 Eosinophils # 0.0 Basophils # 0.0 Sodium Potassium Chloride Carbon Dioxide BUN Creatinine Est GFR ( Amer) Est GFR (Non-Af Amer) BUN/Creatinine Ratio Glucose POC Glucose 159 H 137 H Calculated Osmolality Calcium 02/20/18 02/20/18 02/21/18 17:30 20:22 04:50 WBC 7.7 RBC 3.30 L Hgb 10.3 L Hct 33.0 L MCV 100.0 MCH 31.2 MCHC 31.2 L RDW 13.5 Plt Count 175 MPV 9.5 Immature Gran % 0.5 Seg Neutrophils % 93.9 Lymphocytes % 4.2 Monocytes % 1.3 Eosinophils % 0.0 Basophils % 0.1 Neutrophils # 7.2 Lymphocytes # 0.3 L Monocytes # 0.1 Eosinophils # 0.0 Basophils # 0.0 Sodium 142 Potassium 4.3 Chloride 104 Carbon Dioxide 35 H BUN 34 H Creatinine 1.16 Est GFR ( Amer) > 60 Est GFR (Non-Af Amer) > 60 BUN/Creatinine Ratio 29 H Glucose 148 H POC Glucose 181 H Calculated Osmolality 304 H Calcium 8.4 L 02/21/18 04:50 WBC RBC Hgb Hct MCV MCH MCHC RDW Plt Count MPV Immature Gran % Seg Neutrophils % Lymphocytes % Monocytes % Eosinophils % Basophils % Neutrophils # Lymphocytes # Monocytes # Eosinophils # Basophils # Sodium 141 Potassium 4.5 Chloride 105 Carbon Dioxide 33 H BUN 33 H Creatinine 1.15 Est GFR ( Amer) > 60 Est GFR (Non-Af Amer) > 60 BUN/Creatinine Ratio 29 H Glucose 150 H POC Glucose Calculated Osmolality 302 H Calcium 8.3 L - ABG Interpretation ABG results: ABG ABG pH 7.40 pH Units (7.32-7.45) 02/17/18 04:37 ABG pCO2 49 mmHg (35-45) H 02/17/18 04:37 ABG pO2 74 mmHg (85-104) L 02/17/18 04:37 ABG O2 Saturation 94 % (95-98) L 02/17/18 04:37 Palliative Scale - Palliative Performance Scale How ambulatory is this patient?: Mainly sit / lie What is patient's level of activity and evidence of disease?: Unable to do any work, Extensive disease How much self-care assistance does patient require?: Occasional assistance necessary How much oral intake does the patient have?: Normal or reduced What is this patient's level of consciousness?: Full Palliative Performance Score: 50 % Consult Discharge Plan - Plan Referrals: NONE,PCP [Primary Care Provider] -
[2018-02-21] MEDS: *HR* HYDROcodone/Acet 10/325 mg TABLET PO PRN ×2 (11:33→17:19)
--- NOTE | 2018-02-21 18:06 | Internal Med Progress Note ---
Hospitalist Progress Note - Encounter Date of Encounter: 02/22/18 Time of Encounter: 18:05 - Subjective Interval History: Pt conversational dyspnea improved today. He denies chest pain. He denies fever chills, N/V. Positive cough with sputum. - Exam Vitals: Temp Pulse Resp BP Pulse Ox 97.9 F 76 28 158/62 96 02/21/18 16:28 02/21/18 16:28 02/21/18 16:45 02/21/18 16:28 02/21/18 16:45 Exam: General appearance: no acute distress. wide neck, morbidly obese. Eyes: nonicteric ENT: oropharynx dry Neck: supple Effort: normal Lung auscultation: bilateral: scattered rhonci but improving Cardiovascular: regular rate and rhythm Gastrointestinal: soft, non-tender, non-distended Integumentary: normal Extremities: no cyanosis, pulses normal, edema (2+ pitting edema to mid hernandez B/L) Musculoskeletal: no deformities other (pupils pinpoint, unable to follow commands) - Assessment and Plan (1) Acute and chronic respiratory failure with hypercapnia Current Visit: No Status: Acute Assessment and Plan: He continues to slowly improving. Leukocytosis. He will benefit from few more days of antibiotic and respiratory treatments. Pt is currently sating 95% on 4L NC. Will attempt to wean down oxygen requirement back to his baseline which is 3L NC. Pt was found down at home and was somnolent. Narcan was administered without effect. Pt became more unresponsive and was intubated at [place] Initial ABG - pH 7.21, pCO2 112, pO2 168, HCO3 45 Repeat ABG here - pH 7.33, pCO2 67, pO2 108, HCO3 35. Pt was transfered to ICU at [facility] and started on Vanc and Zosyn for suspected PNA. WBC at [place] was 23.8. He was hypotensive and tachycardic. Chest x ray did not show infiltrate or opacity. Chest x ray 02/16/2018 XR/XR chest 1V portable IMPRESSION: 1. Interval placement of a right jugular central venous catheter with the tip projecting at the level of the SVC. 2. Otherwise, no gross change in the appearance of the chest. Consulted palliative care to see and pt changed code status to DNR CC. Consulting PT/OT to see in am. (2) Acute exacerbation of chronic obstructive airways disease Current Visit: No Status: Acute Assessment and Plan: Continue scheduled and prn bronchodilators. Steroids and broad-spectrum antibiotics. BiPAP HS and PRN. (3) Severe sepsis Current Visit: Yes Status: Resolved Assessment and Plan: Of unclear etiology, Resolved. Pt initial WBC at [place] 23.8. Todya 02/19/2018 11.6 Hypotensive, tachycardic and tachypnic Lactic acid wnl at 1.4, CPK elevated at 329 Pt received 4L fluid bolus and Dopamine RN [facility] - switched Dopamine to Levophed upon arrival Given Vanc, Zosyn and Levaquin at [facility] RN [facility] APPEALS Repeat labs showed WBC 16.9, trop wnl, cpk 182 down from 442 Legionella, strep neg Resp panel neg Blood cultures in progress. (4) Diastolic CHF, acute on chronic Current Visit: Yes Status: Acute Assessment and Plan: Patient has acute on chronic diastolic heart failure. Will continue with Lasix 40 mg PO QD as tolerated. Will monitor renal function. (5) Acute kidney injury superimposed on chronic kidney disease Current Visit: Yes Status: Acute Assessment and Plan: JOHANNE resolved with IVF hydration. Will monitor renal function DVT Prophylaxis: Heparin - Summary of Assessment and Plan Summary of Assessment and Plan: HPI: Mr. Vickers is a 72 year old male who was transferred here from [facility] after being found down at home. He was unresponsive with pinpoint pupils. He was gien a dose of Narcan without effect. He was initially responsive to voice at [facility] but began deteriorating and was subsequently intubated for hypercapnic respiratory failure. Head CT was done and did not demonstrate any acute brain infarct or hemorrhage. CXR showed a R lower lung opacity, likely atelectasis vs pneumonia. Initial labs showed leukocytosis of 23.8 and a mild anemia, hyperkalemia and possible JOHANNE vs CKD with Cre of 1.68. Cpk mildly elevated at 329. Lactic and troponin wnl. Due to his elevated white count, tachycardia, tachypnea, hypotension and source of infection he was given a fluid bolus and started on pressors. A central line was placed at [facility] when asked by accepting Hospitalist after they tried to transfer the patient with dopamine administration through a peripheral line. The patient arrived to [facility] ICU at appx 1000 awake but unable to follow commands. Repeat labs were ordered, as well as an EKG and stat echo. Pt received 4L of fluids RN [facility] which is more than adequate fluid resuscitation for the sepsis bolus. He was no longer hypotensive upon arrival, and satting well. Will do a sepsis re-evaluation and follow up on labs and imaging studies closely. Pt currently unresponsive and intubated, unable to determine code status at this time. The family will be contacted to try to determine code status today. - Time Spent with Patient Total time spent is greater than 50% in coordination of care (as documented) at patient's floor/unit and/or counseling patient: less than 15 minutes Internal Medicine: Result - Labs CBC & Chem 7: 02/22/18 05:10 02/22/18 05:10 Labs: Short CBC 02/21/18 Range/Units 04:50 WBC 7.7 (4.3-11.1) K/mcL Hgb 10.3 L (12.9-16.9) g/dL Hct 33.0 L (37.5-50.1) % Plt Count 175 (140-400) K/mcL Neutrophils # 7.2 (1.6-8.9) K/mcL BMP 02/20/18 02/21/18 17:30 04:50 Sodium 142 141 Potassium 4.3 4.5 Chloride 104 105 Carbon Dioxide 35 H 33 H BUN 34 H 33 H Creatinine 1.16 1.15 Glucose 148 H 150 H Calcium 8.4 L 8.3 L - ABG Interpretation ABG results: ABG ABG pH 7.40 pH Units (7.32-7.45) 02/17/18 04:37 ABG pCO2 49 mmHg (35-45) H 02/17/18 04:37 ABG pO2 74 mmHg (85-104) L 02/17/18 04:37 ABG O2 Saturation 94 % (95-98) L 02/17/18 04:37 Consult Discharge Plan - Plan Referrals: NONE,PCP [Primary Care Provider] -
[2018-02-21] MEDS: Isosorbide MONOnitrate (24 HR) 60 MG TAB.ER.24H PO SCH (20:18)
[2018-02-21] MEDS ORDERED: Melatonin 3 MG TABLET PO ONE (21:12)
[2018-02-22] MEDS: Ipratropium/Albuterol Neb 3 ML IH SCH ×4 (04:06→21:46)
[2018-02-22] MEDS: MethylPREDNISolone 40 MG/ML VIAL IVP SCH (05:13)
[2018-02-22] MEDS: *HR* Heparin 5,000 UNIT/ML VIAL SQ SCH ×2 (05:13→17:13)
[2018-02-22 05:25] LABS: Hematocrit 31.3 % (37.5-50.1); Hemoglobin 9.9 g/dL (12.9-16.9); Immature Granulocytes % 0.8 % (0-4); Lymphocytes # 0.5 K/mcL (0.6-4.6); Lymphocytes % 4.5 %; Mean Corpuscular HGB Conc 31.6 g/dL (31.6-35.5); Mean Corpuscular Hemoglobin 31.4 pg (28.0-33.3); Mean Corpuscular Volume 99.4 fL (83.0-100.0); Mean Platelet Volume 9.6 fL (9.4-12.4); Monocytes # 0.3 K/mcL (0.0-1.3); Monocytes % 3.3 %; Neutrophils # 9.3 K/mcL (1.6-8.9); Platelet Count 161 K/mcL (140-400); Red Blood Count 3.15 M/mcL (4.19-5.50); Red Cell Distribution Width 13.4 % (11.5-14.5); Segmented Neutrophils % 91.4 %
[2018-02-22 05:44] LABS: BUN/Creatinine Ratio 26 (6-26); Blood Urea Nitrogen 29 mg/dL (8-23); Calcium 8.2 mg/dL (8.6-10.3); Carbon Dioxide 36 mEq/L (23-29); Chloride 100 mEq/L (98-107); Glucose 119 mg/dL (70-105); Osmolality,Calculated 295 (280-300); Potassium 4.5 mEq/L (3.5-5.1); Sodium 139 mEq/L (136-145); eGFR For Non-African Americans > 60 (> 60)
[2018-02-22] MEDS: *HR* HYDROcodone/Acet 10/325 mg TABLET PO PRN ×2 (09:29→22:01)
[2018-02-22] MEDS: Gabapentin 300 MG CAPSULE PO SCH ×3 (09:29→20:37)
[2018-02-22] MEDS: Furosemide 40 MG TABLET PO SCH (09:30)
[2018-02-22] MEDS: Metoprolol XL (24 HR) Succ 25 MG TAB.ER.24H PO SCH (09:30)
[2018-02-22] MEDS: levoFLOXacin 750 MG TABLET PO SCH (09:30)
[2018-02-22] MEDS: Vancomycin Oral Soln 125 MG/2.5 ML UDC PO SCH ×4 (09:31→20:37)
--- NOTE | 2018-02-22 12:47 | Palliative Progress Note ---
Date of Encounter: 02/22/18 Time of Encounter: 11:50 - Assessment and plan (1) Dyspnea Current Visit: Yes Status: Acute Assessment and plan: Breathing close to back to baseline. Steroids have been changed to po. Supportive oxygen/bronchodilators. He has no intentions stopping smoking. Qualifiers: Dyspnea type: unspecified Qualified Code(s): R06.00 - Dyspnea, unspecified (2) Chronic back pain greater than 3 months duration Current Visit: Yes Status: Acute Assessment and plan: [place] utilized x3 last 24 hours. Pain well controlled at present. Monitor (3) Advanced care planning/counseling discussion Current Visit: Yes Status: Acute Assessment and plan: Will d/c back to [facility]. Refusing rehab. Does not want hospice care at this time. Code status DNRCC-Arrest and ok with short term intubation again if needed. Palliative will follow at a distance. (4) Diastolic CHF, acute on chronic Current Visit: Yes Status: Acute (5) Acute exacerbation of chronic obstructive airways disease Current Visit: No Status: Acute (6) C. difficile colitis Current Visit: No Status: Acute Assessment and plan: Continues treatment with oral Vancomycin. - Time Spent With Patient Total time spent is greater than 50% in coordination of care (as documented) at patient's floor/unit and/or counseling patient: 25 - 35 minutes - Subjective Interval history: Patient resting quietly in bed. No visitors present. States feeling ok, anxious to go home and hoping to be discharged tomorrow. Denies any pain at present, states breathing continues to improve. Eating well. Rectal tube is out, one liquid BM this am. - Constitutional Vitals: Abnormal lab results RBC 3.15 M/mcL (4.19-5.50) L 02/22/18 05:10 Hgb 9.9 g/dL (12.9-16.9) L 02/22/18 05:10 Hct 31.3 % (37.5-50.1) L 02/22/18 05:10 Band Neutrophils % 18.0 % (0-4) H 02/17/18 03:55 Neutrophils # 9.3 K/mcL (1.6-8.9) H 02/22/18 05:10 Lymphocytes # 0.5 K/mcL (0.6-4.6) L 02/22/18 05:10 ABG pCO2 49 mmHg (35-45) H 02/17/18 04:37 ABG pO2 74 mmHg (85-104) L 02/17/18 04:37 ABG HCO3 30 mEq/L (21-27) H 02/17/18 04:37 ABG Total CO2 31 mEq/L (20-26) H 02/17/18 04:37 ABG O2 Saturation 94 % (95-98) L 02/17/18 04:37 ABG Base Excess 4 mEq/L (-2 to 3) H 02/17/18 04:37 Carbon Dioxide 36 mEq/L (23-29) H 02/22/18 05:10 BUN 29 mg/dL (8-23) H 02/22/18 05:10 Glucose 119 mg/dL (70-105) H 02/22/18 05:10 POC Glucose 295 mg/dL (70-99) H 02/21/18 20:43 Calcium 8.2 mg/dL (8.6-10.3) L 02/22/18 05:10 Venous Ioniz Calcium 1.11 mmol/L (1.15-1.35) L 02/17/18 04:23 Total Bilirubin 0.2 mg/dL (0.3-1.0) L 02/19/18 04:50 B-Natriuretic Peptide 238 pg/mL (Less than 100) H 02/16/18 10:37 Serum Total Protein 5.1 g/dL (6.4-8.9) L 02/19/18 04:50 Albumin 3.0 g/dL (3.5-5.7) L 02/19/18 04:50 Globulin 2.1 g/dL (2.4-3.5) L 02/19/18 04:50 Urine Clarity Cloudy (Clear) A 02/17/18 09:37 Urine Protein 30 mg/dL (Neg-Trace) H 02/17/18 09:37 Urine Blood Moderate (Negative) H 02/17/18 09:37 Ur Leukocyte Esterase Moderate (Negative) H 02/17/18 09:37 Urine Microscopic RBC 5-15 per hpf (0-3) H 02/17/18 09:37 Urine Microscopic WBC 30-50 per hpf (0-3) H 02/17/18 09:37 Ur Squamous Epith Cells Many per lpf (None-Few) H 02/17/18 09:37 Urine Bacteria Many per hpf (None-Few) H 02/17/18 09:37 Ur Culture Indicated? NO. (NO) A 02/17/18 09:37 Stl C. diff Tox B Gene Positive (Negative) A 02/17/18 11:05 Acetaminophen < 10 mcg/mL (10-20) L 02/17/18 03:55 - Respiratory Respiratory exam: Present: decreased breath sounds, CTAB - Cardiovascular Cardiovascular exam: Present: +S1, +S2 - GI/Abdominal GI/Abdominal exam: Present: normal bowel sounds, soft - Additional comments: Voids per urinal - Extremities Exam Extremities exam: Present: normal capillary refill, normal inspection - Neurological Exam Neurological exam: Present: alert, oriented X3 - Skin Skin exam: Present: dry, warm Palliative Quality Palliative Quality: Screen for Code Status: Yes, Screen for Goals of Care: Yes, Screen for Pain: Yes, If Pain Regimen Started, Initiate Bowel Regimen: NA (C- diff/diarrhea), Screen for Nausea/Vomitting: Yes Code Status: 02/16/18 11:07 Resuscitation Status: Active [RES] Routine Comment: Resuscitation Status: Full Code 02/20/18 16:10 DNR [Resuscitation Status: Active] [RES] Routine Comment: Resuscitation Status: DNR-Comfort Care-Arrest - Labs CBC & Chem 7: 02/22/18 05:10 02/22/18 05:10 Labs: Laboratory Results - last 24 hr 02/21/18 02/21/18 02/22/18 07:34 20:43 05:10 WBC 10.2 RBC 3.15 L Hgb 9.9 L Hct 31.3 L MCV 99.4 MCH 31.4 MCHC 31.6 RDW 13.4 Plt Count 161 MPV 9.6 Immature Gran % 0.8 Seg Neutrophils % 91.4 Lymphocytes % 4.5 Monocytes % 3.3 Eosinophils % 0.0 Basophils % 0.0 Neutrophils # 9.3 H Lymphocytes # 0.5 L Monocytes # 0.3 Eosinophils # 0.0 Basophils # 0.0 Sodium Potassium Chloride Carbon Dioxide BUN Creatinine Est GFR ( Amer) Est GFR (Non-Af Amer) BUN/Creatinine Ratio Glucose POC Glucose 139 H 295 H Calculated Osmolality Calcium 02/22/18 05:10 WBC RBC Hgb Hct MCV MCH MCHC RDW Plt Count MPV Immature Gran % Seg Neutrophils % Lymphocytes % Monocytes % Eosinophils % Basophils % Neutrophils # Lymphocytes # Monocytes # Eosinophils # Basophils # Sodium 139 Potassium 4.5 Chloride 100 Carbon Dioxide 36 H BUN 29 H Creatinine 1.13 Est GFR ( Amer) > 60 Est GFR (Non-Af Amer) > 60 BUN/Creatinine Ratio 26 Glucose 119 H POC Glucose Calculated Osmolality 295 Calcium 8.2 L - ABG Interpretation ABG results: ABG ABG pH 7.40 pH Units (7.32-7.45) 02/17/18 04:37 ABG pCO2 49 mmHg (35-45) H 02/17/18 04:37 ABG pO2 74 mmHg (85-104) L 02/17/18 04:37 ABG O2 Saturation 94 % (95-98) L 02/17/18 04:37 Palliative Scale - Palliative Performance Scale How ambulatory is this patient?: Mainly sit / lie What is patient's level of activity and evidence of disease?: Unable to do any work, Extensive disease How much self-care assistance does patient require?: Occasional assistance necessary How much oral intake does the patient have?: Normal or reduced What is this patient's level of consciousness?: Full Palliative Performance Score: 50 % Consult Discharge Plan - Plan Referrals: NONE,PCP [Primary Care Provider] -
[2018-02-22] MEDS ORDERED: Acetaminophen 325 MG TABLET PO PRN (13:30)
[2018-02-22] MEDS: predniSONE 20 MG TABLET PO SCH (17:21)
--- NOTE | 2018-02-22 17:31 | Internal Med Progress Note ---
Hospitalist Progress Note - Encounter Date of Encounter: 02/22/18 Time of Encounter: 17:26 - Subjective Interval History: Pt continues to improve. He denies chest pain. He denies fever chills, N/V. + cough with decreased sputum. - Exam Vitals: Temp Pulse Resp BP Pulse Ox 97.8 F 79 18 170/76 97 02/22/18 16:42 02/22/18 16:42 02/22/18 16:42 02/22/18 16:42 02/22/18 16:42 Exam: General appearance: no acute distress. wide neck, morbidly obese. Eyes: nonicteric ENT: oropharynx dry Neck: supple Effort: normal Lung auscultation: bilateral: scattered rhonci but improving Cardiovascular: regular rate and rhythm Gastrointestinal: soft, non-tender, non-distended Integumentary: normal Extremities: no cyanosis, pulses normal, edema (2+ pitting edema to mid hernandez B/L) Musculoskeletal: no deformities other (pupils pinpoint, unable to follow commands) - Assessment and Plan (1) Acute and chronic respiratory failure with hypercapnia Current Visit: No Status: Acute Assessment and Plan: He continues to slowly improving. Leukocytosis. He will benefit from few more days of antibiotic and respiratory treatments. Pt is currently sating 95% on 4L NC. Will attempt to wean down oxygen requirement back to his baseline which is 3L NC. Pt was found down at home and was somnolent. Narcan was administered without effect. Pt became more unresponsive and was intubated at [place] Initial ABG - pH 7.21, pCO2 112, pO2 168, HCO3 45 Repeat ABG here - pH 7.33, pCO2 67, pO2 108, HCO3 35. Pt was transfered to ICU at [facility] and started on Vanc and Zosyn for suspected PNA. WBC at [place] was 23.8. He was hypotensive and tachycardic. Chest x ray did not show infiltrate or opacity. Chest x ray 02/16/2018 XR/XR chest 1V portable IMPRESSION: 1. Interval placement of a right jugular central venous catheter with the tip projecting at the level of the SVC. 2. Otherwise, no gross change in the appearance of the chest. Consulted palliative care to see and pt changed code status to DNR CC. Consulting PT/OT to see in am. (2) Severe sepsis Current Visit: Yes Status: Resolved Assessment and Plan: Of unclear etiology, Resolved. Pt initial WBC at [place] 23.8. Todya 02/19/2018 11.6 Hypotensive, tachycardic and tachypnic Lactic acid wnl at 1.4, CPK elevated at 329 Pt received 4L fluid bolus and Dopamine GRINDER OPERATOR TOOL - switched Dopamine to Levophed upon arrival Given Vanc, Zosyn and Levaquin at [place] GRINDER OPERATOR TOOL Repeat labs showed WBC 16.9, trop wnl, cpk 182 down from 442 Legionella, strep neg Resp panel neg Blood cultures in progress. (3) Acute exacerbation of chronic obstructive airways disease Current Visit: No Status: Acute Assessment and Plan: Continue scheduled and prn bronchodilators. Steroids and broad-spectrum antibiotics. BiPAP HS and PRN. (4) Diastolic CHF, acute on chronic Current Visit: Yes Status: Acute Assessment and Plan: Patient has acute on chronic diastolic heart failure. Will continue with Lasix 40 mg PO QD as tolerated. Will monitor renal function. (5) Acute kidney injury superimposed on chronic kidney disease Current Visit: Yes Status: Acute Assessment and Plan: JOHANNE resolved with IVF hydration. Will monitor renal function DVT Prophylaxis: Heparin - Summary of Assessment and Plan Summary of Assessment and Plan: HPI: Mr. Vickers is a 72 year old male who was transferred here from [place] after being found down at home. He was unresponsive with pinpoint pupils. He was gien a dose of Narcan without effect. He was initially responsive to voice at [place] but began deteriorating and was subsequently intubated for hypercapnic respiratory failure. Head CT was done and did not demonstrate any acute brain infarct or hemorrhage. CXR showed a R lower lung opacity, likely atelectasis vs pneumonia. Initial labs showed leukocytosis of 23.8 and a mild anemia, hyperkalemia and possible JOHANNE vs CKD with Cre of 1.68. Cpk mildly elevated at 329. Lactic and troponin wnl. Due to his elevated white count, tachycardia, tachypnea, hypotension and source of infection he was given a fluid bolus and started on pressors. A central line was placed at [place] when asked by accepting Hospitalist after they tried to transfer the patient with dopamine administration through a peripheral line. The patient arrived to [facility] ICU at appx 1000 awake but unable to follow commands. Repeat labs were ordered, as well as an EKG and stat echo. Pt received 4L of fluids GRINDER OPERATOR TOOL which is more than adequate fluid resuscitation for the sepsis bolus. He was no longer hypotensive upon arrival, and satting well. Will do a sepsis re-evaluation and follow up on labs and imaging studies closely. Pt currently unresponsive and intubated, unable to determine code status at this time. The family will be contacted to try to determine code status today. - Time Spent with Patient Total time spent is greater than 50% in coordination of care (as documented) at patient's floor/unit and/or counseling patient: less than 15 minutes Plan of Care Discussed with: patient Internal Medicine: Result - Labs CBC & Chem 7: 02/22/18 05:10 02/22/18 05:10 Labs: Short CBC 02/22/18 Range/Units 05:10 WBC 10.2 (4.3-11.1) K/mcL Hgb 9.9 L (12.9-16.9) g/dL Hct 31.3 L (37.5-50.1) % Plt Count 161 (140-400) K/mcL Neutrophils # 9.3 H (1.6-8.9) K/mcL BMP 02/22/18 05:10 Sodium 139 Potassium 4.5 Chloride 100 Carbon Dioxide 36 H BUN 29 H Creatinine 1.13 Glucose 119 H Calcium 8.2 L - ABG Interpretation ABG results: ABG ABG pH 7.40 pH Units (7.32-7.45) 02/17/18 04:37 ABG pCO2 49 mmHg (35-45) H 02/17/18 04:37 ABG pO2 74 mmHg (85-104) L 02/17/18 04:37 ABG O2 Saturation 94 % (95-98) L 02/17/18 04:37 Consult Discharge Plan - Plan Referrals: NONE,PCP [Primary Care Provider] -
[2018-02-22] MEDS: Isosorbide MONOnitrate (24 HR) 60 MG TAB.ER.24H PO SCH (20:37)
[2018-02-23] MEDS ORDERED: Melatonin 3 MG TABLET PO ONE (01:02)
[2018-02-23] MEDS: Ipratropium/Albuterol Neb 3 ML IH SCH ×2 (04:17→10:38)
[2018-02-23] MEDS: *HR* Heparin 5,000 UNIT/ML VIAL SQ SCH (04:38)
[2018-02-23] MEDS: *HR* HYDROcodone/Acet 10/325 mg TABLET PO PRN ×2 (06:33→13:48)
--- NOTE | 2018-02-23 08:39 | Event Note ---
Date of Encounter: 02/23/18 Time of Encounter: 08:30 Chart review completed. Patient appears to be at baseline. Discharge plan in place. Continue to follow at a distance.
[2018-02-23] MEDS: Gabapentin 300 MG CAPSULE PO SCH (09:18)
[2018-02-23] MEDS: levoFLOXacin 750 MG TABLET PO SCH (09:18)
[2018-02-23] MEDS: Furosemide 40 MG TABLET PO SCH (09:18)
[2018-02-23] MEDS: Metoprolol XL (24 HR) Succ 25 MG TAB.ER.24H PO SCH (09:18)
[2018-02-23] MEDS: predniSONE 20 MG TABLET PO SCH (09:18)
[2018-02-23] MEDS: Vancomycin Oral Soln 125 MG/2.5 ML UDC PO SCH ×2 (09:18→13:34)
[2018-02-23 11:22] VITALS: BP 149/70
--- NOTE | 2018-02-23 11:57 | Discharge Summary ---
- NOTES TO OUTPATIENT PROVIDER Notes to Outpatient Provider: Patient was admitted for acute on chronic hypercarbic respiratory failure and severe sepsis secondary to HCAP and C diff. Required ICU admission for ventilator and pressor. Clinically improved with a course of antibiotics, steroids, and bronchodilators. He was again advised to be transferred to us for further management but refused and requested to be discharged home with home health. Compliance to BiPAP was again emphasized but he is at high risk being readmitted due to nonadherence to medical therapy. Date of Encounter: 02/23/18 Time of Encounter: 08:30 - Discharge Diagnosis (1) Diastolic CHF, acute on chronic Priority: Secondary Status: Acute (2) Acute exacerbation of chronic obstructive airways disease Priority: Secondary Status: Acute (3) Acute kidney injury superimposed on chronic kidney disease Priority: Secondary Status: Acute (4) Acute and chronic respiratory failure with hypercapnia Priority: Primary Status: Acute (5) Severe sepsis Priority: Secondary Status: Resolved Hospital course: Mr. Vickers is a 72 year old male with hx of COPD on 2-3 L of oxygen at home, diastolic heart failure, was admitted for acute on chronic hypercarbic respiratory failure and severe sepsis secondary to HCAP and C diff. Required ICU admission for ventilator and pressor support. Clinically improved with a course of antibiotics, steroids, and bronchodilators. He was advised to be transferred to SNF for further management but refused and requested to be discharged home with home health. Compliance to BiPAP was again emphasized but he is at high risk being readmitted due to nonadherence to medical therapy. Discharge discussed with: patient, nurse, other - Time Spent with Patient Total time spent providing and/or coordinating discharge services: 36 mins - Discharge Medications Prescriptions: levoFLOXacin [Levaquin] 750 mg PO DAILY 3 Days #3 tablet predniSONE [PredniSONE] 60 mg PO DAILY #12 tablet Vancomycin Oral Soln [Firvanq] 125 mg PO QID 8 Days #32 c Home Medications: Albuterol Neb [Proventil Neb] 2.5 mg IH [id number] PRN #1 inh 12/12/17 [Rx] Albuterol Sulfate [Proair Hfa] 2 puff IH Q4H PRN #1 hfa.aer.ad 12/12/17 [Rx] Budesonide/Formoterol 160/4.5 [Symbicort 160/4.5] 2 puff IH BIDR #1 inhaler 12/12/17 [Rx] Clopidogrel [Plavix] 75 mg PO DAILY 30 Days #30 tablet 12/12/17 [Rx] Cyanocobalamin (Vitamin B-12) [Vitamin B-12] 1,000 mcg PO DAILY #30 tablet 12/12/17 [Rx] Isosorbide MONOnitrate (24 HR) [Imdur] 60 mg PO HS #30 tab.er.24h 12/12/17 [Rx] Oxygen 2 l NS AD #1 each 12/12/17 [Rx] traZODone [TraZODone] 50 mg PO HS #30 tablet 12/12/17 [Rx] Cetirizine HCl [Zyrtec] 10 mg PO DAILY 01/23/18 [History] Hydrocodone/Acetaminophen [Hydrocodon-Acetaminophn 10-325] 1 each PO Q6H PRN 01/23/18 [History] Atorvastatin Calcium [Lipitor] 20 mg PO HS 01/29/18 [History] Cholecalciferol (Vitamin D3) [Vitamin D3] 10,000 unit PO WE 01/29/18 [History] Fluticasone Propionate Nasal [Flonase] 2 spr NS DAILY 01/29/18 [History] Fluticasone/Vilanterol [Breo Ellipta 200-25 Mcg INH] 1 puff IH DAILY 01/29/18 [History] Furosemide [Lasix] 40 mg PO DAILY 01/29/18 [History] Gabapentin [Neurontin] 300 mg PO TID 01/29/18 [History] Metoprolol XL (24 HR) Succ [Toprol Xl] 25 mg PO DAILY 01/29/18 [History] Omeprazole [PriLOSEC] 20 mg PO DAILY 01/29/18 [History] Ranitidine HCl [Acid Fence Laborer] 150 mg PO BID 01/29/18 [History] Temazepam [Restoril] 15 mg PO HS 01/29/18 [History] Tiotropium [Spiriva] 18 mcg PO DAILY 01/29/18 [History] Aspirin Enteric Coated [Aspirin EC] 81 mg PO DAILY #30 tablet. 01/31/18 [Rx] Vancomycin Oral Soln [Firvanq] 125 mg PO QID 8 Days #32 udc 02/23/18 [Rx] levoFLOXacin [Levaquin] 750 mg PO DAILY 3 Days #3 tablet 02/23/18 [Rx] predniSONE [PredniSONE] 60 mg PO DAILY #12 tablet 02/23/18 [Rx] Allergies/Adverse Reactions: Allergy/AdvReac Type Severity Reaction Status Date / Time Erythromycin Base Allergy Hives Verified 01/29/18 10:03 Penicillins [PCN] Allergy Hives Verified 01/29/18 10:03 [id number]-[id number]-Ufa Reductase Allergy Itching Verified 01/29/18 10:03 Inhibitor [Statins] Date of admission: 02/16/18 09:59 Primary care physician: PCP NONE Consults: 02/20/18 14:32 Consult to Palliative Care [CONS] Routine Comment: Consulting Provider: Palliative Care Ernestina Reason for Consult: end of care goals Call Completed: Yes 02/20/18 17:28 PT [Consult to Physical Therapy] [CONS] Routine Comment: Evaluate, develop and implement POC Reason for Consult: deconditoning Does patient have active BEDREST order?: No Is patient medically & hemodynamically stable?: Yes Patient assessed for mobility or mobilized this visit?: Yes 02/20/18 17:29 OT [Consult to Occupational Therapy] [CONS] Routine Comment: Evaluate, develop and implement POC Reason for Consult: deconditoning Does patient have active BEDREST order?: No Is patient medically & hemodynamically stable?: Yes Patient assessed for mobility or mobilized this visit?: Yes - Constitutional Vitals: Temp Pulse Resp BP Pulse Ox 97.7 F 98 16 149/70 95 02/23/18 11:21 02/23/18 11:21 02/23/18 11:21 02/23/18 11:21 02/23/18 11:21 Exam: General: Alert and oriented, not in acute distress. Cardiovascular:Normal S1 & S2, No JVD. Pulse regular. Lungs: mostly clear with scattered wheezes bilaterally Abdomen:Soft, non-tender, no rigidity. Extremities:No deformity or swelling Neurological:Normal cognition and motor skills. Non-focal - Patient Status Disposition: Home Health Service Condition: Fair Functional capacity at discharge: uses cane/walker Overall status at discharge: patient is progressing back to baseline - Discharge Instructions Instructions: Sepsis (DC), Acute Respiratory Distress Syndrome (DC), Chronic Obstructive Pulmonary Disease (DC), Clostridium Difficile Infection (DC) Follow Up With: NONE,PCP [Primary Care Provider] - - Diet and Activity Activity: as per physical therapy Diet: advance to your usual diet
--- NOTE | 2018-02-23 12:06 | Physician Discharge Referral ---
Home Health/Hosp Referral Info Transfer to: Home Health - Diagnosis (1) Diastolic CHF, acute on chronic Priority: Secondary Status: Acute (2) Acute exacerbation of chronic obstructive airways disease Priority: Secondary Status: Acute (3) Acute kidney injury superimposed on chronic kidney disease Priority: Secondary Status: Acute (4) Acute and chronic respiratory failure with hypercapnia Priority: Primary Status: Acute (5) Severe sepsis Priority: Secondary Status: Resolved - Respiratory Orders Oxygen / L per min (2-3L, bipap PRN and at night) Smoking Cessation: Smoking cessation has been advised. For more information, call the [place] Tobacco Quit Line at 8-130-BJQP-NOW. - Services Needed Following services are medically necessary services: Nursing, Home Health Aide, Physical Therapy, Occupational Therapy - Transfer Medications Prescriptions: levoFLOXacin [Levaquin] 750 mg PO DAILY 3 Days #3 tablet predniSONE [PredniSONE] 60 mg PO DAILY #12 tablet Vancomycin Oral Soln [Firvanq] 125 mg PO QID 8 Days #32 c Home Medications: Albuterol Neb [Proventil Neb] 2.5 mg IH [id number] PRN #1 inh 12/12/17 [Rx] Albuterol Sulfate [Proair Hfa] 2 puff IH Q4H PRN #1 hfa.aer.ad 12/12/17 [Rx] Budesonide/Formoterol 160/4.5 [Symbicort 160/4.5] 2 puff IH BIDR #1 inhaler 12/12/17 [Rx] Clopidogrel [Plavix] 75 mg PO DAILY 30 Days #30 tablet 12/12/17 [Rx] Cyanocobalamin (Vitamin B-12) [Vitamin B-12] 1,000 mcg PO DAILY #30 tablet 07/26 [Rx] Isosorbide MONOnitrate (24 HR) [Imdur] 60 mg PO HS #30 tab.er.24h 12/12/17 [Rx] Oxygen 2 l NS AD #1 each 12/12/17 [Rx] traZODone [TraZODone] 50 mg PO HS #30 tablet 12/12/17 [Rx] Cetirizine HCl [Zyrtec] 10 mg PO DAILY 01/23/18 [History] Hydrocodone/Acetaminophen [Hydrocodon-Acetaminophn 10-325] 1 each PO Q6H PRN 01/23/18 [History] Atorvastatin Calcium [Lipitor] 20 mg PO HS 01/29/18 [History] Cholecalciferol (Vitamin D3) [Vitamin D3] 10,000 unit PO WE 01/29/18 [History] Fluticasone Propionate Nasal [Flonase] 2 spr NS DAILY 01/29/18 [History] Fluticasone/Vilanterol [Breo Ellipta 200-25 Mcg INH] 1 puff IH DAILY 01/29/18 [History] Furosemide [Lasix] 40 mg PO DAILY 01/29/18 [History] Gabapentin [Neurontin] 300 mg PO TID 01/29/18 [History] Metoprolol XL (24 HR) Succ [Toprol Xl] 25 mg PO DAILY 01/29/18 [History] Omeprazole [PriLOSEC] 20 mg PO DAILY 01/29/18 [History] Ranitidine HCl [Acid Hris Specialist] 150 mg PO BID 01/29/18 [History] Temazepam [Restoril] 15 mg PO HS 01/29/18 [History] Tiotropium [Spiriva] 18 mcg PO DAILY 01/29/18 [History] Aspirin Enteric Coated [Aspirin EC] 81 mg PO DAILY #30 tablet. 01/31/18 [Rx] Vancomycin Oral Soln [Firvanq] 125 mg PO QID 8 Days #32 udc 02/23/18 [Rx] levoFLOXacin [Levaquin] 750 mg PO DAILY 3 Days #3 tablet 02/23/18 [Rx] predniSONE [PredniSONE] 60 mg PO DAILY #12 tablet 02/23/18 [Rx] Allergies/Adverse Reactions: Allergy/AdvReac Type Severity Reaction Status Date / Time Erythromycin Base Allergy Hives Verified 01/29/18 10:03 Penicillins [PCN] Allergy Hives Verified 01/29/18 10:03 [id number]-[id number]-Iqs Reductase Allergy Itching Verified 01/29/18 10:03 Inhibitor [Statins] Certification: Further, I certify that my clinical findings support that this patient is ho mebound (i.e. absences from home require considerable and taxing effort and are for medical reasons or mandaen services or infrequently or short duration when for other reasons) because: Homebound Reason: Patient requires assistance of a person or device to safely leave home, Leaving home requires considerable and taxing effort due to condition Attestation: My signature below is to certify that this patient is under my care and that I, or nurse practitioner, or a physician's pharmacy innovation assistant working with me, has a [id number] encounter with this patient.
== END 2018-02-23 15:20 | disposition home health service (06) | DRG 871 ==
LOC: ICNU 09:59 → SUATTDRO 09:59 → 2ANU 02-18 11:58
PROVIDERS: ADMIT Internal Medicine; ATTEND Internal Medicine

== ENCOUNTER 2018-11-05 20:18 | Observation (INO) ==
[2018-11-05] MEDS ORDERED: Ipratropium/Albuterol Neb 3 ML IH ONE (20:54)
[2018-11-05] MEDS ORDERED: methylPREDNISolone 125 MG/2 ML VIAL IVP ONE (20:54)
--- NOTE | 2018-11-05 21:00 | Emergency Department Note ---
Disposition Clinical Impression: Acute exacerbation of chronic obstructive airways disease Disposition: Admitted As Inpatient Condition: Serious Referrals: Brenda Moser CNP [Primary Care Provider] - Forms: ED Satisfaction Letter Time of Disposition: 23:17 SOB HPI - General Chief Complaint: ED Shortness of Breath/Dyspnea Stated Complaint: SOB Time Seen by Provider: 11/05/18 20:50 Source: patient Mode of arrival: EMS Limitations: no limitations Nursing Notes Reviewed: Yes Vital Signs Reviewed: Yes - History of Present Illness Patient to ED from SNF for eval of dyspnea x several days. CXR at facility showed no acute abnormality this AM. Patient denies pain, cough, fever/chills hemoptysis, nausea/vomiting, weakness, paraesthesias. No recent changes in meds. Pt Subjective Complaint: shortness of breath Onset (ago): day(s) Context: other (Hx of COPD) Severity: moderate Consistency/Duration: constant Improves with: bronchodilators (squad gave one albuterol treatment en route) Worsens with: nothing Known history of: COPD, congestive heart failure Associated symptoms: Denies: chest pain, pain with inspiration, fever, cough, wheezing, sputum production, orthopnea, lower extremity pain, polyuria, polydipsia, parasthesias, palpitations, hemoptysis, diaphoresis, nausea/vomiting, syncope, abdominal pain, rash, sense of impending doom, other Treatment prior to arrival: bronchodilator Cough present: No Sputum production: No - Related Data Home oxygen amount: 2 liters Home Medications Medication Instructions Recorded Confirmed Hydrocodone/Acetaminophen 1 each PO Q6H PRN 01/23/18 03/08/18 [Hydrocodon-Acetaminophn 10-325] Atorvastatin Calcium [Lipitor] 20 mg PO HS 01/29/18 03/08/18 Cholecalciferol (Vitamin D3) 10,000 unit PO WE 01/29/18 03/08/18 [Vitamin D3] Fluticasone Propionate Nasal 2 spr NS DAILY 01/29/18 03/08/18 [Flonase] Fluticasone/Vilanterol [Breo 1 puff IH DAILY 01/29/18 03/08/18 Ellipta 200-25 Mcg INH] Tiotropium [Spiriva] 18 mcg PO DAILY 01/29/18 03/08/18 traZODone [TraZODone] 50 mg PO HS 03/08/18 03/08/18 Oxygen 3 l NS AD 11/05/18 11/05/18 Tiotropium [Spiriva] 1 puff IH DAILY 11/05/18 11/05/18 Vit C/E/Zn/Coppr/Lutein/Zeaxan 1 each PO DAILY 11/05/18 11/05/18 [Ocuvite Lutein & Zeaxanthin Cp] Previous Rx's Medication Instructions Recorded Albuterol Neb [Proventil Neb] 2.5 mg IH [id number] PRN #1 inh 12/12/17 Albuterol Sulfate [Proair Hfa] 2 puff IH Q4H PRN #1 hfa.aer.ad 12/12/17 Budesonide/Formoterol 160/4.5 2 puff IH BIDR #1 inhaler 12/12/17 [Symbicort 160/4.5] Cyanocobalamin (Vitamin B-12) 1,000 mcg PO DAILY #30 tablet 12/12/17 [Vitamin B-12] Metoprolol XL (24 HR) Succ [Toprol 50 mg PO DAILY 365 Days tab.er.24h 02/26/18 Xl] Bumetanide [Bumex] 1 mg PO DAILY tablet 03/11/18 Finasteride [Proscar] 5 mg PO DAILY tablet 03/11/18 Gabapentin [Neurontin] 300 mg PO BID #0 03/11/18 Isosorbide MONOnitrate (24 HR) 120 mg PO HS tab.er.24h 03/11/18 [Imdur] Tamsulosin [Flomax] 0.4 mg PO DAILY capsule 03/11/18 Allergies Allergy/AdvReac Type Severity Reaction Status Date / Time Erythromycin Base Allergy Hives Verified 01/29/18 10:03 Penicillins [PCN] Allergy Hives Verified 01/29/18 10:03 [id number] Reductase Allergy Itching Verified 01/29/18 10:03 Inhibitor [Statins] All systems ED: reviewed and negative except as stated. Review of Systems: As Per HPI Constitutional: Denies: fever, chills, weakness Cardiovascular: Reports: dyspnea on exertion. Denies: chest pain, palpitations, orthopnea, edema, syncope Respiratory: Reports: as per HPI, dyspnea. Denies: cough, wheezes, hemoptysis, stridor, sputum production Gastrointestinal: Denies: abdominal pain, nausea, vomiting, diarrhea Genitourinary: Denies: urgency, dysuria, frequency, hematuria Musculoskeletal: Denies: back pain Neurological: Denies: headache, weakness, confusion, vertigo Hematological/Lymphatic: Denies: easy bleeding, easy bruising Past Medical History - Past Medical History Attestation: Yes The following information was validated with the patient. Source: patient Medical history: Reports: arthritis, asthma, CHF, COPD, coronary artery disease, GERD, hyperlipidemia, hypertension, myocardial infarction, renal disease, other Surgical history: Reports: cataract, orthopedic, other, tonsillectomy, other Psychiatric history: Reports: no psych history - Social History Smoking Status: Light tobacco smoker Smokeless Tobacco Status: No Alcohol use: Reports: none Drug use: Reports: none, other Physical Exam - General Limitations: no limitations General appearance: alert, in no apparent distress - Head Head exam: atraumatic, normocephalic, normal inspection - Eye Eye exam: Present: normal appearance. Absent: scleral icterus, conjunctival injection, periorbital swelling - ENT ENT exam: normal oropharynx, mucous membranes moist - Neck Neck exam: Present: normal inspection, trachea midline. Absent: meningismus - Chest Chest inspection: Present: normal inspection, symmetric chest wall rise - Respiratory Respiratory exam: Present: respiratory distress (speaks 2-3 words then pauses for breathing), wheezes (faint expiratory), prolonged expiratory phase. Absent: stridor, accessory muscle use - Cardiovascular Cardiovascular exam: Present: regular rate, normal rhythm - Abdominal Exam Abdominal exam: Present: soft, Non-Tender. Absent: distention, guarding, rebound, rigidity, ascites, mass, pulsatile mass - Extremities Exam Extremities exam: Present: normal inspection, normal capillary refill. Absent: pedal edema, calf tenderness - Back Exam Back exam: Present: normal inspection - Neurological Exam Neurological exam: Present: alert, oriented X3, CN II-XII intact - Psychiatric Psychiatric exam: Present: normal affect, normal mood - Skin Skin exam: Present: warm, dry, intact, normal color Course Course Narrative: Pt to ED from SNF for eval of dyspnea - worse than usua. CXT this AM normal. On 2liters O2 PRN. Received one neb enroute which helped. Sats 87-88% on 2Liters. Venti mask applied. Sats increased to 92% 3 duo nebs given. Symptomatic improvement. Still decreased air movement. Sats 87-92%. Patient resting comfortably, in no distress. CO2 on BMP is 43 though. ABG ordered at 22:30. 23:15 ABG now resulted. pH 7.27 and CO2 >100. BiPap initiated. WIll monitor for improvement then contact hospitalist for admission. Vital Signs Temperature 98.6 F 11/05/18 20:27 Pulse Rate 83 11/05/18 20:27 Respiratory Rate 20 11/05/18 20:27 Blood Pressure 114/60 11/05/18 20:27 O2 Sat by Pulse Oximetry 92 11/05/18 20:27 Temperature 97.9 F 11/05/18 20:53 Pulse Rate 82 11/05/18 21:34 Respiratory Rate 18 11/05/18 21:34 Blood Pressure 130/56 11/05/18 21:34 O2 Sat by Pulse Oximetry 94 11/05/18 21:34 Oxygen Delivery Oxygen Delivery Nasal Cannula Shortness of Breath/Dyspnea - Medical Records Medical records reviewed: Yes I reviewed the patient's medical records. - Lab Data Lab results reviewed: Yes I reviewed the patient's lab results. Result diagrams: 11/05/18 20:35 11/05/18 20:35 Lab Results 11/05/18 11/05/18 11/05/18 Range/Units 20:35 20:35 21:12 WBC 11.1 (4.3-11.1) K/mcL RBC 3.41 L (4.19-5.50) M/mcL Hgb 10.7 L (12.9-16.9) g/dL Hct 34.8 L (37.5-50.1) % MCV 102.1 H (83.0-100.0) fL MCH 31.4 (28.0-33.3) pg MCHC 30.7 L (31.6-35.5) g/dL RDW 13.8 (11.5-14.5) % Plt Count 215 (140-400) K/mcL MPV 9.7 (9.4-12.4) fL Immature Gran % 0.4 (0-4) % Seg Neutrophils % 85.5 % Lymphocytes % 7.0 % Monocytes % 6.5 % Eosinophils % 0.4 % Basophils % 0.2 % Neutrophils # 9.5 H (1.6-8.9) K/mcL Lymphocytes # 0.8 (0.6-4.6) K/mcL Monocytes # 0.7 (0.0-1.3) K/mcL Eosinophils # 0.1 (0.0-0.6) K/mcL Basophils # 0.0 (0.0-0.2) K/mcL Sodium 141 (136-145) mEq/L Potassium 4.2 (3.5-5.1) mEq/L Chloride 95 L (98-107) mEq/L Carbon Dioxide 43 H* (23-29) mEq/L BUN 17 (8-23) mg/dL Creatinine 1.08 (0.70-1.30) mg/dL Est GFR ( Amer) > 60 (> 60) Est GFR (Non-Af Amer) > 60 (> 60) BUN/Creatinine Ratio 16 (6-26) Glucose 114 H (70-105) mg/dL Calculated Osmolality 294 (280-300) Lactic Acid 0.6 (0.5-2.2) mmol/L Calcium 9.0 (8.6-10.3) mg/dL Troponin I < 0.03 (< 0.04) ng/mL - Radiology Data Radiology results reviewed: Yes I reviewed the patient's radiology results. Chest X-Ray 11/05/18 20:54 IMPRESSION: 1. Chronic left pleural thickening versus pleural effusion. Unchanged appearance of the chest since 03/08/2018 study. 2. Calcific atherosclerosis aorta. 3. Cardiomegaly. D/ / Howard Rehman / Howard Rehman Interpreting Provider: Howard Rehman - EKG Data EKG attestation: Yes I reviewed and interpreted this EKG. EKG shows normal: Reports: sinus rhythm Rate: Reports: normal Rhythm: Reports: NSR Interpretation: Reports: no acute changes, unchanged when compared to prior tracing (date)
[2018-11-05 21:24] LABS: Basophils % 0.2 %; Eosinophils # 0.1 K/mcL (0.0-0.6); Eosinophils % 0.4 %; Hematocrit 34.8 % (37.5-50.1); Hemoglobin 10.7 g/dL (12.9-16.9); Immature Granulocytes % 0.4 % (0-4); Lymphocytes # 0.8 K/mcL (0.6-4.6); Mean Corpuscular HGB Conc 30.7 g/dL (31.6-35.5); Mean Corpuscular Hemoglobin 31.4 pg (28.0-33.3); Mean Corpuscular Volume 102.1 fL (83.0-100.0); Mean Platelet Volume 9.7 fL (9.4-12.4); Monocytes # 0.7 K/mcL (0.0-1.3); Monocytes % 6.5 %; Neutrophils # 9.5 K/mcL (1.6-8.9); Platelet Count 215 K/mcL (140-400); Red Blood Count 3.41 M/mcL (4.19-5.50); Red Cell Distribution Width 13.8 % (11.5-14.5); Segmented Neutrophils % 85.5 %; White Blood Count 11.1 K/mcL (4.3-11.1)
[2018-11-05 21:51] LABS: BUN/Creatinine Ratio 16 (6-26); Blood Urea Nitrogen 17 mg/dL (8-23); Carbon Dioxide 43 mEq/L (23-29); Chloride 95 mEq/L (98-107); Glucose 114 mg/dL (70-105); Osmolality,Calculated 294 (280-300); Potassium 4.2 mEq/L (3.5-5.1); Sodium 141 mEq/L (136-145); Troponin I < 0.03 ng/mL (< 0.04); eGFR For African Americans > 60 (> 60); eGFR For Non-African Americans > 60 (> 60)
[2018-11-05 23:06] LABS: ABG Base Excess 16 mEq/L (-2 to 3); ABG HCO3 47 mEq/L (21-27); ABG Oxygen Saturation 94 % (95-98); ABG PCO2 102 mmHg (35-45); ABG PH 7.27 pH Units (7.32-7.45); ABG PO2 85 mmHg (85-104); ABG TCO2 50 mEq/L (20-26)
--- NOTE | 2018-11-05 23:08 | Emergency Department Note ---
Disposition Clinical Impression: Acute exacerbation of chronic obstructive airways disease Disposition: Admitted As Inpatient Condition: Fair Time of Disposition: 23:17 General Adult HPI - General Chief complaint: ED Shortness of Breath/Dyspnea Stated complaint: SOB Time Seen by Provider: 11/05/18 20:50 Source: patient Mode of arrival: EMS Limitations: no limitations - History of Present Illness Pain Scale: 0 - Related Data Home Medications Medication Instructions Recorded Confirmed Atorvastatin Calcium [Lipitor] 20 mg PO HS 01/29/18 11/06/18 Cholecalciferol (Vitamin D3) 10,000 unit PO WE 01/29/18 11/06/18 [Vitamin D3] Fluticasone Propionate Nasal 2 spr NS QAM 01/29/18 11/06/18 [Flonase] traZODone [TraZODone] 25 mg PO HS 03/08/18 11/06/18 Oxygen 3 l NS AD 11/05/18 11/05/18 Vit C/E/Zn/Coppr/Lutein/Zeaxan 1 each PO QAM 11/05/18 11/06/18 [Ocuvite Lutein & Zeaxanthin Cp] Cyanocobalamin (B-12) [Vitamin B12] 1,000 mcg PO QAM 11/06/18 11/06/18 HYDROcodone/Acet 10/325 mg [Jackhorn 1 tab PO Q6H PRN 11/06/18 11/06/18 10-325 mg] Isosorbide MONOnitrate [Isosorbide 120 mg PO HS 11/06/18 11/06/18 Mononitrate ER] Loratadine [Allergy Relief] 10 mg PO DAILY PRN 11/06/18 11/06/18 Mag Hydrox/Al Hydrox/Simeth 20 ml PO BID PRN 11/06/18 11/06/18 [Maalox Advanced Suspension] Previous Rx's Medication Instructions Recorded Albuterol Neb [Proventil Neb] 2.5 mg IH [id number] PRN #1 inh 12/12/17 Albuterol Sulfate [Proair Hfa] 2 puff IH Q4H PRN #1 hfa.aer.ad 12/12/17 Budesonide/Formoterol 160/4.5 2 puff IH BIDR #1 inhaler 12/12/17 [Symbicort 160/4.5] Metoprolol XL (24 HR) Succ [Toprol 50 mg PO DAILY 365 Days tab.er.24h 02/26/18 Xl] Bumetanide [Bumex] 1 mg PO DAILY tablet 03/11/18 Finasteride [Proscar] 5 mg PO DAILY tablet 03/11/18 Gabapentin [Neurontin] 300 mg PO BID #0 03/11/18 Tamsulosin [Flomax] 0.4 mg PO DAILY capsule 03/11/18 Tiotropium [Spiriva] 18 mcg IH DAILY inh 11/07/18 Allergies Allergy/AdvReac Type Severity Reaction Status Date / Time azithromycin Allergy See Verified 11/06/18 11:07 Comments Erythromycin Base Allergy Hives Verified 11/06/18 11:07 Penicillins [PCN] Allergy Hives Verified 11/06/18 11:07 Prpsrwq-Nsi-Wvl Reductase Allergy Itching Verified 01/29/18 10:03 Inhibitor [Statins] Constitutional: Denies: fever, chills, weakness Cardiovascular: Reports: dyspnea on exertion. Denies: chest pain, palpitations, orthopnea, edema, syncope Respiratory: Reports: as per HPI, dyspnea. Denies: cough, wheezes, hemoptysis, stridor, sputum production Gastrointestinal: Denies: abdominal pain, nausea, vomiting, diarrhea Genitourinary: Denies: urgency, dysuria, frequency, hematuria Musculoskeletal: Denies: back pain Neurological: Denies: headache, weakness, confusion, vertigo Hematological/Lymphatic: Denies: easy bleeding, easy bruising Past Medical History - Past Medical History Medical history: Reports: arthritis, asthma, CHF, COPD, coronary artery disease, GERD, hyperlipidemia, hypertension, myocardial infarction, renal disease, other Surgical history: Reports: cataract, orthopedic, other, tonsillectomy, other Psychiatric history: Reports: no psych history - Social History Smoking Status: Light tobacco smoker Smokeless Tobacco Status: No Alcohol use: Reports: none Drug use: Reports: none, other Physical Exam - General Limitations: no limitations General appearance: alert, in no apparent distress Course Vital Signs Temperature 98.6 F 11/05/18 20:27 Pulse Rate 83 11/05/18 20:27 Respiratory Rate 20 11/05/18 20:27 Blood Pressure 114/60 11/05/18 20:27 O2 Sat by Pulse Oximetry 92 11/05/18 20:27 Temperature 97.8 F 11/07/18 11:29 Pulse Rate 71 11/07/18 11:29 Respiratory Rate 20 11/07/18 16:02 Blood Pressure 129/59 11/07/18 11:29 O2 Sat by Pulse Oximetry 93 11/07/18 16:02 Oxygen Delivery Oxygen Delivery Bipap Medical Decision Making - Lab Data Result diagrams: 11/07/18 04:26 11/07/18 04:26 Lab Results 11/05/18 11/05/18 11/05/18 Range/Units 20:35 20:35 20:35 WBC 11.1 (4.3-11.1) K/mcL RBC 3.41 L (4.19-5.50) M/mcL Hgb 10.7 L (12.9-16.9) g/dL Hct 34.8 L (37.5-50.1) % MCV 102.1 H (83.0-100.0) fL MCH 31.4 (28.0-33.3) pg MCHC 30.7 L (31.6-35.5) g/dL RDW 13.8 (11.5-14.5) % Plt Count 215 (140-400) K/mcL MPV 9.7 (9.4-12.4) fL Immature Gran % 0.4 (0-4) % Seg Neutrophils % 85.5 % Lymphocytes % 7.0 % Monocytes % 6.5 % Eosinophils % 0.4 % Basophils % 0.2 % Neutrophils # 9.5 H (1.6-8.9) K/mcL Lymphocytes # 0.8 (0.6-4.6) K/mcL Monocytes # 0.7 (0.0-1.3) K/mcL Eosinophils # 0.1 (0.0-0.6) K/mcL Basophils # 0.0 (0.0-0.2) K/mcL ABG pH (7.32-7.45) pH Units ABG pCO2 (35-45) mmHg ABG pO2 (85-104) mmHg ABG HCO3 (21-27) mEq/L ABG Total CO2 (20-26) mEq/L ABG O2 Saturation (95-98) % ABG Base Excess (-2 to 3) mEq/L O2 Delivery Device Inspired O2 (1-15=lpm [id number]=%) Sodium 141 (136-145) mEq/L Potassium 4.2 (3.5-5.1) mEq/L Chloride 95 L (98-107) mEq/L Carbon Dioxide 43 H* (23-29) mEq/L BUN 17 (8-23) mg/dL Creatinine 1.08 (0.70-1.30) mg/dL Est GFR ( Amer) > 60 (> 60) Est GFR (Non-Af Amer) > 60 (> 60) BUN/Creatinine Ratio 16 (6-26) Glucose 114 H (70-105) mg/dL Calculated Osmolality 294 (280-300) Lactic Acid (0.5-2.2) mmol/L Calcium 9.0 (8.6-10.3) mg/dL Troponin I < 0.03 (< 0.04) ng/mL B-Natriuretic Peptide 319 H (Less than 100) pg/mL Person Notif of Crit 11/05/18 11/05/18 Range/Units 21:12 23:02 WBC (4.3-11.1) K/mcL RBC (4.19-5.50) M/mcL Hgb (12.9-16.9) g/dL Hct (37.5-50.1) % MCV (83.0-100.0) fL MCH (28.0-33.3) pg MCHC (31.6-35.5) g/dL RDW (11.5-14.5) % Plt Count (140-400) K/mcL MPV (9.4-12.4) fL Immature Gran % (0-4) % Seg Neutrophils % % Lymphocytes % % Monocytes % % Eosinophils % % Basophils % % Neutrophils # (1.6-8.9) K/mcL Lymphocytes # (0.6-4.6) K/mcL Monocytes # (0.0-1.3) K/mcL Eosinophils # (0.0-0.6) K/mcL Basophils # (0.0-0.2) K/mcL ABG pH 7.27 L (7.32-7.45) pH Units ABG pCO2 102 H* (35-45) mmHg ABG pO2 85 (85-104) mmHg ABG HCO3 47 H (21-27) mEq/L ABG Total CO2 50 H (20-26) mEq/L ABG O2 Saturation 94 L (95-98) % ABG Base Excess 16 H (-2 to 3) mEq/L O2 Delivery Device oxymask Inspired O2 5.0 (1-15=lpm [id number]=%) Sodium (136-145) mEq/L Potassium (3.5-5.1) mEq/L Chloride (98-107) mEq/L Carbon Dioxide (23-29) mEq/L BUN (8-23) mg/dL Creatinine (0.70-1.30) mg/dL Est GFR ( Amer) (> 60) Est GFR (Non-Af Amer) (> 60) BUN/Creatinine Ratio (6-26) Glucose (70-105) mg/dL Calculated Osmolality (280-300) Lactic Acid 0.6 (0.5-2.2) mmol/L Calcium (8.6-10.3) mg/dL Troponin I (< 0.04) ng/mL B-Natriuretic Peptide (Less than 100) pg/mL Person Notif of Olu ERIC Attestation Statement - Attestation Attestation: I have personally performed a face to face evaluation on this patient. I have reviewed and agree with the care plan. History and Exam by me shows: Patient is 73-year-old gentleman with prior history of COPD and CHF presents to the emergency department with chief complaint of shortness of breath and hypoxia. Physical exam patient is awake alert in no acute distress requiring extra oxygen via ventilatory mask. Medical decision management patient had an ABG that showed a pH of 7.27 and a PCO2 of greater than 100. Patient will be started on BiPAP in the emergency department patient being currently being treated for a COPD exacerbation. Plan is to admit the patient to the hospitalist service for further care.
[2018-11-06] MEDS ORDERED: Naloxone 0.4 MG/ML INJ IVP PRN ×2 (04:58→14:33)
[2018-11-06] MEDS ORDERED: Albuterol 2.5 MG/3 ML NEBULIZER IH PRN (06:44)
[2018-11-06] MEDS ORDERED: *HR* HYDROcodone/Acet 10/325 mg TABLET PO PRN (06:44)
[2018-11-06] MEDS ORDERED: NON-FORMULARY MEDICATION 1 EACH EACH (Oxygen 3 L) NS SCH (06:45)
--- NOTE | 2018-11-06 06:50 | Internal Med History&Physical ---
<Mj Hull - Last Filed: 11/06/18 07:21> Date of Encounter: 11/06/18 Time of Encounter: 04:46 Internal Medicine - H&P: HPI Chief complaint: dyspnea History of present illness: Mr. Vickers is a 73-year-old male with a PMH of arthritis, asthma, CHF, COPD, C AD, GERD, HTN, and renal disease who presented to [facility] ED on 11/06/18 with the chief complaint of dyspnea of several days duration. He presented from [facility] facility. Upon arrival to the ED, patients vital signs were significant for the following: Temperature 98.6, pulse 83, respiratory rate 20, blood pressure 114/60, and O2 saturation 92% on 4 L of O2. Labs showed a low hemoglobin at 10.7, and elevated carbon dioxide of 43, and an elevated BNP at 319. ABG demonstrated the following: PH 7.27, PCO2 102, PO2 85, HCO3 47, total CO2 50, O2 saturation 94. CXR demonstrated chronic left pleural thickening versus pleural effusion, with unchanged appearance compared to prior study; cardiomegaly. EKG demonstrated normal sinus rhythm without any acute changes. Blood culture was ordered and is currently pending. In the ED, he was given a DuoNeb treatment and a one-time dose of Solu-Medrol. During interview, patient is on BiPAP, and appears to be in mild respiratory distress. However, he is conversant. He states that his respiratory status has improved since he was started on BiPAP. He currently denies chest pain, fever, chills, cough, sputum production, increased shortness of breath. He states that his feet feel slightly more swollen than normal. On exam, he has trace pedal edema in the feet extending just below the ankles. Patient normally takes Bumex at home. I believe that patients respiratory failure is multifactorial with his history of CHF and COPD. Will give patient DuoNebs as needed, as well as supplemental oxygen/BiPAP as needed. We will start patient on Solu-Medrol given his wheezing present on physical exam. Past Med Surg Social Fam HX - Past Medical History Medical history: arthritis, asthma, CHF, COPD, coronary artery disease, GERD, hyperlipidemia, hypertension, myocardial infarction, renal disease, other Additional medical history: MYRIAM non compliant with c pap. C-Diff Psychiatric history: no psych history - Past Surgical History Surgical History: cataract, orthopedic, other, tonsillectomy, other Additional surgical history: Right shoulder, - Social History Smoking Status: Light tobacco smoker Smokeless Tobacco Status: No Alcohol use: none Drug use: none, other - Family History Father Family Member Ethnicity: Non- Living Status: Hx Family Cardiac Disorders: Yes ([place], CHF, HTN, Stroke) Hx Family Endocrine Disorder: Yes (DM) Mother Family Member Ethnicity: Non- Living Status: Hx Family Cardiac Disorders: Yes (Stroke, CHF) Brother Family Member Ethnicity: Non- Living Status: Hx Family Cardiac Disorders: Yes (CHF) Hx Family Respiratory Disorders: Yes (COPD, Mesothelioma) Internal Medicine - H&P: Meds Albuterol Neb [Proventil Neb] 2.5 mg IH [id number] PRN #1 inh 12/12/17 [Rx] Albuterol Sulfate [Proair Hfa] 2 puff IH Q4H PRN #1 hfa.aer.ad 12/12/17 [Rx] Budesonide/Formoterol 160/4.5 [Symbicort 160/4.5] 2 puff IH BIDR #1 inhaler 12/12/17 [Rx] Cyanocobalamin (Vitamin B-12) [Vitamin B-12] 1,000 mcg PO DAILY #30 tablet 12/12 [Rx] Hydrocodone/Acetaminophen [Hydrocodon-Acetaminophn 10-325] 1 each PO Q6H PRN 01/23/18 [History] Atorvastatin Calcium [Lipitor] 20 mg PO HS 01/29/18 [History] Cholecalciferol (Vitamin D3) [Vitamin D3] 10,000 unit PO WE 01/29/18 [History] Fluticasone Propionate Nasal [Flonase] 2 spr NS DAILY 01/29/18 [History] Fluticasone/Vilanterol [Breo Ellipta 200-25 Mcg INH] 1 puff IH DAILY 01/29/18 [History] Tiotropium [Spiriva] 18 mcg PO DAILY 01/29/18 [History] Metoprolol XL (24 HR) Succ [Toprol Xl] 50 mg PO DAILY 365 Days tab.er.24h 02/26/18 [Rx] traZODone [TraZODone] 50 mg PO HS 03/08/18 [History] Bumetanide [Bumex] 1 mg PO DAILY tablet 03/11/18 [Rx] Finasteride [Proscar] 5 mg PO DAILY tablet 03/11/18 [Rx] Gabapentin [Neurontin] 300 mg PO BID #0 03/11/18 [Rx] Isosorbide MONOnitrate (24 HR) [Imdur] 120 mg PO HS tab.er.24h 03/11/18 [Rx] Tamsulosin [Flomax] 0.4 mg PO DAILY capsule 03/11/18 [Rx] Oxygen 3 l NS AD 11/05/18 [History] Tiotropium [Spiriva] 1 puff IH DAILY 11/05/18 [History] Vit C/E/Zn/Coppr/Lutein/Zeaxan [Ocuvite Lutein & Zeaxanthin Cp] 1 each PO DAILY 11/05/18 [History] Allergy/AdvReac Type Severity Reaction Status Date / Time Erythromycin Base Allergy Hives Verified 01/29/18 10:03 Penicillins [PCN] Allergy Hives Verified 01/29/18 10:03 Hcnmuyy-Nwp-Dyl Reductase Allergy Itching Verified 01/29/18 10:03 Inhibitor [Statins] All Systems PM: A 10-system review of systems was performed and is negative for pertinent findings except as documented above in the HPI. - Constitutional Vitals: Temp Pulse Resp BP Pulse Ox 98.8 F 73 13 138/65 93 11/06/18 05:54 11/06/18 05:54 11/06/18 05:54 11/06/18 05:54 11/06/18 05:54 Exam: General: On BiPAP, in moderate respiratory distress Head: atraumatic, normocephalic Eye: PERRL, EOMI Neck: Supple, trachea midline Respiratory: Tachypnea, shortened inspiratory phase, bilateral expiratory wheezing present in all lung cobian Cardiovascular: RRR, +S1, +S2; no murmurs, rubs, gallops Abdomen: Soft, nontender Extremities: warm, radial pulses palpable and symmetrical Neurological: No focal deficits noted Psychiatric: Slightly anxious appearing Skin: Dry, intact Internal Med - H&P Results - Labs CBC & Chem 7: 11/05/18 20:35 11/05/18 20:35 Labs: Short CBC 11/05/18 Range/Units 20:35 WBC 11.1 (4.3-11.1) K/mcL Hgb 10.7 L (12.9-16.9) g/dL Hct 34.8 L (37.5-50.1) % Plt Count 215 (140-400) K/mcL Neutrophils # 9.5 H (1.6-8.9) K/mcL BMP 11/05/18 20:35 Sodium 141 Potassium 4.2 Chloride 95 L Carbon Dioxide 43 H* BUN 17 Creatinine 1.08 Glucose 114 H Calcium 9.0 Cardiac Enzymes 11/05/18 Range/Units 20:35 Troponin I < 0.03 (< 0.04) ng/mL - ABG Interpretation ABG results: 11/05/18 23:02 ABG pH 7.27 L ABG pCO2 102 H* ABG pO2 85 ABG HCO3 47 H ABG Total CO2 50 H ABG O2 Saturation 94 L ABG Base Excess 16 H - Impressions ITS Impressions Chest X-Ray 11/05/18 20:54 IMPRESSION: 1. Chronic left pleural thickening versus pleural effusion. Unchanged appearance of the chest since 03/08/2018 study. 2. Calcific atherosclerosis aorta. 3. Cardiomegaly. D/ / Howard Rehman / Howard Rehman Interpreting Provider: Howard Rehman - Assessment and Plan (1) Acute and chronic respiratory failure Current Visit: Yes Status: Acute Assessment and plan: - Patient initially presented with shortness of breath of several days duration and hypoxia from a detention facility - Etiology is unknown at this time, but his likely multifactorial in the setting of long-standing COPD and congestive heart failure - CXR demonstrated chronic left pleural thickening versus pleural effusion with unchanged appearance compared to prior study as well as cardiomegaly - In the emergency department, patient was given a DuoNeb treatment and a one- time dose of Solu-Medrol 125 mg - He was then placed on BiPAP and was transferred to the floor for further management - On physical exam, patient does have bilateral expiratory wheezing; no basilar crackles were appreciated Plan - Resume patients home Bumex for diuresis - Supplemental O2/BiPAP as needed - Duo nebs as needed - Solu-Medrol 40mg every 12 hours Qualifiers: Qualified Code(s): J96.20 - Acute and chronic respiratory failure, unspecified whether with hypoxia or hypercapnia (2) Heart failure with reduced ejection fraction Current Visit: Yes Status: Acute Assessment and plan: - Patient has a known history of heart failure with reduced ejection fraction - Last TTE on file was performed on 02/16/18, which demonstrated LVEF of 40-45%, mild LV diastolic dysfunction, possibly mild to moderate aortic stenosis with a gradient Plan: - Resume Bumex Qualifiers: Qualified Code(s): I50.20 - Unspecified systolic (congestive) heart failure (3) COPD (chronic obstructive pulmonary disease) Current Visit: Yes Status: Acute Assessment and plan: - Patient has a known history of COPD with chronic CO2 retention - Plan as documented above Qualifiers: Qualified Code(s): J44.9 - Chronic obstructive pulmonary disease, unspecified (4) Hypertension Current Visit: Yes Status: Acute Assessment and plan: - Resume home medications Qualifiers: Qualified Code(s): I10 - Essential (primary) hypertension (5) MYRIAM (obstructive sleep apnea) Current Visit: Yes Status: Acute Assessment and plan: - Continue BiPAP as needed (6) History of urinary retention Current Visit: Yes Status: Acute Assessment and plan: - Continue Flomax - Time Spent With Patient Total time spent is greater than 50% in coordination of care (as documented) at patient's floor/unit and/or counseling patient: <Maria M Zuñiga - Last Filed: 11/06/18 08:24> Date of Encounter: 11/06/18 Internal Medicine - H&P: HPI History of present illness: Mr. Vickers is a 73 year old male All Systems PM: A 10-system review of systems was performed and is negative for pertinent findings except as documented above in the HPI. - Constitutional Vitals: Temp Pulse Resp BP Pulse Ox 97.6 F 64 23 144/72 92 11/06/18 06:51 11/06/18 06:51 11/06/18 07:35 11/06/18 06:51 11/06/18 07:35 Internal Med - H&P Results - Labs CBC & Chem 7: 11/05/18 20:35 11/05/18 20:35 Labs: Short CBC 11/05/18 Range/Units 20:35 WBC 11.1 (4.3-11.1) K/mcL Hgb 10.7 L (12.9-16.9) g/dL Hct 34.8 L (37.5-50.1) % Plt Count 215 (140-400) K/mcL Neutrophils # 9.5 H (1.6-8.9) K/mcL BMP 11/05/18 20:35 Sodium 141 Potassium 4.2 Chloride 95 L Carbon Dioxide 43 H* BUN 17 Creatinine 1.08 Glucose 114 H Calcium 9.0 Cardiac Enzymes 11/05/18 Range/Units 20:35 Troponin I < 0.03 (< 0.04) ng/mL - ABG Interpretation ABG results: 11/05/18 23:02 ABG pH 7.27 L ABG pCO2 102 H* ABG pO2 85 ABG HCO3 47 H ABG Total CO2 50 H ABG O2 Saturation 94 L ABG Base Excess 16 H - Impressions ITS Impressions Chest X-Ray 11/05/18 20:54 IMPRESSION: 1. Chronic left pleural thickening versus pleural effusion. Unchanged appearance of the chest since 03/08/2018 study. 2. Calcific atherosclerosis aorta. 3. Cardiomegaly. D/ / Howard Rehman / Howard Rehman Interpreting Provider: Howard Rehman - Time Spent With Patient Total time spent is greater than 50% in coordination of care (as documented) at patient's floor/unit and/or counseling patient: - Attending Attestation I performed a history and physical examination of the patient and discussed his management with the resident. I reviewed the residents note and agree with the documented findings and plan of care.
[2018-11-06] MEDS: Budesonide/Formoterol 160/4.5 1 PUFF INH IH SCH ×2 (07:33→22:33)
[2018-11-06] MEDS: Metoprolol XL (24 HR) Succ 50 MG TAB.ER.24H PO SCH (08:58)
[2018-11-06] MEDS: Finasteride 5 MG TABLET PO SCH (08:58)
[2018-11-06] MEDS: Bumetanide 1 MG TABLET PO SCH (08:58)
[2018-11-06] MEDS: Fluticasone Propionate Nasal 50 MCG/SPRAY BOTTLE NS SCH (08:58)
[2018-11-06] MEDS: Cyanocobalamin (B-12) 1,000 MCG TABLET PO SCH (08:58)
[2018-11-06] MEDS: Gabapentin 300 MG CAPSULE PO SCH ×2 (08:58→20:00)
[2018-11-06] MEDS ORDERED: [UNRECOGNIZED DRUG - OTHER] PO SCH (09:00)
[2018-11-06] MEDS ORDERED: (Fluticasone/Vilanterol [Breo Ellipta 200-25 Mcg Inh]) IH SCH (09:00)
[2018-11-06] MEDS: Tiotropium 18 MCG inhalation IH SCH (10:12)
[2018-11-06 11:39] LABS: Bilirubin,Urine Negative (Negative); Blood,Urine Negative (Negative); Clarity,Urine Clear (Clear); Color,Urine Yellow (Yellow); Glucose,Urine (UA) Normal (Normal); Ketones,Urine Negative (Negative); Leukocyte Esterase,Urine Negative (Negative); Nitrite,Urine Negative (Negative); Protein,Urine 30 mg/dL (Neg-Trace); Specific Gravity,Urine 1.023 (1.010-1.025); Urobilinogen,Urine Normal (Normal)
[2018-11-06 11:42] LABS: Bacteria,Urine None Seen per hpf (None-Few); Hyaline Casts,Urine None Seen per lpf (None-Few); Squamous Epithelial Cell,Urine Few per lpf (None-Few); WBC,Urine 0-3 per hpf (0-3)
[2018-11-06] MEDS: Ipratropium/Albuterol Neb 3 ML IH SCH ×2 (15:44→22:33)
--- NOTE | 2018-11-06 16:22 | Electrocardiograph Report ---
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
[2018-11-06] MEDS ORDERED: MethylPREDNISolone 40 MG/ML VIAL IVP SCH (18:00)
--- NOTE | 2018-11-06 18:47 | Internal Med Progress Note ---
Hospitalist Progress Note - Encounter Date of Encounter: 11/06/18 Time of Encounter: 11:30 - Subjective Interval History: Mr Vickers reports improvement in his shortness of breath GEN: Denies fever, chills or malaise HEENT: Denies headache blurriness, or dysphagia RESP: reprots improved SOB or cough CV: Denies chest pain or palpitations GI: Denies Nausea, vomiting, diarrhea or constipation Reviewed current in hospital medications with modifications see orders Reviewed Routine labs - Exam Vitals: Temp Pulse Resp BP Pulse Ox 97.7 F 70 18 135/63 95 11/06/18 11:06 11/06/18 15:46 11/06/18 15:46 11/06/18 15:46 11/06/18 15:46 Exam: GEN: NAD, A&O x 3, Pleasant and conversant SKIN: [place] warm acyanotic not jaundice HEART: RRR, no murmurs LUNGS: Diminished no wheeze but scattered crackles, overall non labored ABDOMEN; Soft, non tender or distended, BS x 4 normactive EXT: No LE edema, Pedal pulses 1+, radial pulses 2+ PSYCH: Mood and affect is appropriate - Assessment and Plan (1) Acute exacerbation of chronic obstructive airways disease Current Visit: Yes Status: Acute Assessment and Plan: Chest x-ray on admission does reveal pleural thickening, continue DuoNeb stat incentive spirometry switched to oral prednisone would like to benefit from long taper dose. Suspect poor compliance with noninvasive positive ventilation. He is afebrile with no leukocytosis (2) Acute and chronic respiratory failure Current Visit: Yes Status: Acute Assessment and Plan: continue BiPAP therapy suspect medical nonadherence all compliance with BiPAP therapy (3) Pleural thickening Current Visit: Yes Status: Acute Assessment and Plan: Evidence on chest x-ray will probably need outpatient pulmonology follow-up (4) Anemia Current Visit: Yes Status: Acute Assessment and Plan: Hemoglobin is 10.7 would initiate workup, since he is complaining of dyspnea (5) COPD (chronic obstructive pulmonary disease) Current Visit: Yes Status: Acute Assessment and Plan: Continue home inhalers he has being treated for COPD exacerbation (6) Hypertension Current Visit: Yes Status: Acute Assessment and Plan: Normotensive (7) MYRIAM (obstructive sleep apnea) Current Visit: Yes Status: Acute Assessment and Plan: Continue to encourage noninvasive ventilation DVT Prophylaxis: Heparin per protocol subcutaneous - Time Spent with Patient Total time spent is greater than 50% in coordination of care (as documented) at patient's floor/unit and/or counseling patient: Plan of Care Discussed with: nurse Internal Medicine: Result - Labs CBC & Chem 7: 11/05/18 20:35 11/05/18 20:35 Labs: Short CBC 11/05/18 Range/Units 20:35 WBC 11.1 (4.3-11.1) K/mcL Hgb 10.7 L (12.9-16.9) g/dL Hct 34.8 L (37.5-50.1) % Plt Count 215 (140-400) K/mcL Neutrophils # 9.5 H (1.6-8.9) K/mcL BMP 11/05/18 20:35 Sodium 141 Potassium 4.2 Chloride 95 L Carbon Dioxide 43 H* BUN 17 Creatinine 1.08 Glucose 114 H Calcium 9.0 Cardiac Enzymes 11/05/18 Range/Units 20:35 Troponin I < 0.03 (< 0.04) ng/mL Urine 11/06/18 Range/Units 11:25 Urine Color Yellow (Yellow) Urine Clarity Clear (Clear) Urine pH 6.0 (5.0-8.0) pH Units Ur Specific [place] 1.023 (1.010-1.025) Urine Protein 30 H (Neg-Trace) mg/dL Urine Glucose (UA) Normal (Normal) mg/dL - ABG Interpretation ABG results: ABG ABG pH 7.27 pH Units (7.32-7.45) L 11/05/18 23:02 ABG pCO2 102 mmHg (35-45) H* 11/05/18 23:02 ABG pO2 85 mmHg (85-104) 11/05/18 23:02 ABG O2 Saturation 94 % (95-98) L 11/05/18 23:02 - Impressions Impressions Chest X-Ray 11/05/18 20:54 IMPRESSION: 1. Chronic left pleural thickening versus pleural effusion. Unchanged appearance of the chest since 03/08/2018 study. 2. Calcific atherosclerosis aorta. 3. Cardiomegaly. D/ / Howard Rehman / Howard Rehman Interpreting Provider: Howard Rehman Consult Discharge Plan - Plan Referrals: Brenda Moser, [place] [Primary Care Provider] - ___ (2) Acute and chronic respiratory failure Qualifiers: Qualified Code(s): J96.20 - Acute and chronic respiratory failure, unspecified whether with hypoxia or hypercapnia (4) Anemia Qualifiers: Anemia type: unspecified type Qualified Code(s): D64.9 - Anemia, unspecified (5) COPD (chronic obstructive pulmonary disease) Qualifiers: Qualified Code(s): J44.9 - Chronic obstructive pulmonary disease, unspecified (6) Hypertension Qualifiers: Qualified Code(s): I10 - Essential (primary) hypertension
[2018-11-06] MEDS: *HR* Heparin 5,000 UNIT/ML VIAL SQ SCH (20:01)
[2018-11-06] MEDS ORDERED: traZODone 50 MG TABLET PO SCH (21:00)
[2018-11-06] MEDS ORDERED: Isosorbide MONOnitrate (24 HR) 60 MG TAB.ER.24H PO SCH (21:00)
[2018-11-07] MEDS: Ipratropium/Albuterol Neb 3 ML IH SCH ×3 (03:42→16:02)
[2018-11-07 05:02] LABS: Basophils % 0.1 %; Hematocrit 33.6 % (37.5-50.1); Hemoglobin 10.6 g/dL (12.9-16.9); Immature Granulocytes % 0.5 % (0-4); Lymphocytes # 0.6 K/mcL (0.6-4.6); Lymphocytes % 5.9 %; Mean Corpuscular HGB Conc 31.5 g/dL (31.6-35.5); Mean Corpuscular Hemoglobin 32.3 pg (28.0-33.3); Mean Corpuscular Volume 102.4 fL (83.0-100.0); Mean Platelet Volume 10.1 fL (9.4-12.4); Monocytes # 0.4 K/mcL (0.0-1.3); Monocytes % 3.9 %; Neutrophils # 8.7 K/mcL (1.6-8.9); Platelet Count 199 K/mcL (140-400); Red Blood Count 3.28 M/mcL (4.19-5.50); Red Cell Distribution Width 13.5 % (11.5-14.5); Segmented Neutrophils % 89.6 %; White Blood Count 9.7 K/mcL (4.3-11.1)
[2018-11-07 05:16] LABS: % Iron Saturation 17 % (20-55); Iron 53 mcg/dL (65-175); Transferrin 227 mg/dL (203-362)
[2018-11-07 05:33] LABS: BUN/Creatinine Ratio 35 (6-26); Blood Urea Nitrogen 42 mg/dL (8-23); Carbon Dioxide 41 mEq/L (23-29); Chloride 91 mEq/L (98-107); Glucose 157 mg/dL (70-105); Osmolality,Calculated 302 (280-300); Potassium 3.9 mEq/L (3.5-5.1); Sodium 139 mEq/L (136-145); eGFR For African Americans > 60 (> 60); eGFR For Non-African Americans 59 (> 60)
[2018-11-07 05:34] LABS: Ferritin 36 ng/mL (20-250)
[2018-11-07 05:39] LABS: Folate 8.6 ng/mL (3.0-16.0)
[2018-11-07] MEDS: *HR* Heparin 5,000 UNIT/ML VIAL SQ SCH (05:39)
[2018-11-07] MEDS ORDERED: Cholecalciferol (D-3) 1,000 UNIT (25MCG) TABLET PO SCH (06:44)
[2018-11-07] MEDS ORDERED: Loratadine 10 MG TABLET PO PRN (07:25)
[2018-11-07] MEDS ORDERED: Iron Sucrose Complex 200 MG in 0.9 % Sodium Chloride 100 ML IVPB ONE (07:27)
[2018-11-07] MEDS ORDERED: predniSONE 20 MG TABLET PO SCH (09:00)
[2018-11-07] MEDS ORDERED: Multivit/Ca/Min/Fe/FA 1 TAB TABLET PO SCH (09:00)
[2018-11-07] MEDS: Bumetanide 1 MG TABLET PO SCH (09:47)
[2018-11-07] MEDS: Gabapentin 300 MG CAPSULE PO SCH (09:47)
[2018-11-07] MEDS: Finasteride 5 MG TABLET PO SCH (09:47)
[2018-11-07] MEDS: Metoprolol XL (24 HR) Succ 50 MG TAB.ER.24H PO SCH (09:48)
[2018-11-07] MEDS: Fluticasone Propionate Nasal 50 MCG/SPRAY BOTTLE NS SCH (09:48)
[2018-11-07] MEDS: Cyanocobalamin (B-12) 1,000 MCG TABLET PO SCH (09:48)
[2018-11-07] MEDS: Budesonide/Formoterol 160/4.5 1 PUFF INH IH SCH (10:27)
[2018-11-07] MEDS: Tiotropium 18 MCG inhalation IH SCH (10:28)
[2018-11-07 11:32] VITALS: BP 129/59
--- NOTE | 2018-11-07 15:01 | Discharge Summary ---
- NOTES TO OUTPATIENT PROVIDER Notes to Outpatient Provider: Posthospital follow-up for acute on chronic hypercapnic respiratory failure. He also was noted to have pleural thickening would need outpatient follow-up with pulmonology and he states that he is due for his routine colonoscopy he does have iron deficiency anemia Orders not resulted at time of discharge: Pending orders 11/05/18 21:12 Culture,Blood [BC] Stat Date of Encounter: 11/07/18 Time of Encounter: 14:59 - Discharge Diagnosis (1) Acute and chronic respiratory failure Priority: Primary Status: Acute Assessment and Plan: continue BiPAP therapy suspect medical nonadherence all compliance with BiPAP therapy, patient was educated again on the benefit of BiPAP therapy is strongly encouraged to be compliant Qualifiers: Qualified Code(s): J96.20 - Acute and chronic respiratory failure, unspecified whether with hypoxia or hypercapnia (2) Acute exacerbation of chronic obstructive airways disease Priority: Secondary Status: Acute Assessment and Plan: Chest x-ray on admission does reveal pleural thickening, continue DuoNeb stat incentive spirometry switched to oral prednisone would like to benefit from long taper dose. Suspect poor compliance with noninvasive positive ventilation. He is afebrile with no leukocytosis (3) Pleural thickening Priority: Secondary Status: Acute Assessment and Plan: Evidence on chest x-ray will probably need outpatient pulmonology follow-up (4) Anemia Priority: Secondary Status: Acute Assessment and Plan: Hemoglobin is 10.7 would initiate workup, his ferritin was low normal otherwise unremarkable workup ordered 1 dose of iron sucrose. Discussed colonoscopy and he stated that he scheduled for colonoscopy this year an outpatient Qualifiers: Anemia type: iron deficiency Iron deficiency anemia type: other iron deficiency Qualified Code(s): D50.8 - Other iron deficiency anemias (5) COPD (chronic obstructive pulmonary disease) Priority: Secondary Status: Acute Assessment and Plan: Continue home inhalers he has being treated for COPD exacerbation Qualifiers: Qualified Code(s): J44.9 - Chronic obstructive pulmonary disease, unspecified (6) Hypertension Priority: Secondary Status: Acute Assessment and Plan: Normotensive Qualifiers: Qualified Code(s): I10 - Essential (primary) hypertension (7) MYRIAM (obstructive sleep apnea) Priority: Secondary Status: Acute Assessment and Plan: Continue to encourage compliance noninvasive positive ventilation Hospital course: Mr. Vickers is a 73 year old male was hospitalized for acute on chronic hypercapnic history failure which is converted to noncompliance. He denies any difficulty with tolerating his BiPAP. He was educated on the benefits of noninvasive positive ventilation. His workup with a chest x-ray which revealed pleural thickening as such she was advised to follow up with pulmonology as an outpatient. He was also was noted to have iron deficiency anemia was treated with IV iron sucrose and strongly advised to follow-up with his scheduled colonoscopy this year. Discharge discussed with: patient, nurse, social work, case management - Time Spent with Patient Total time spent providing and/or coordinating discharge services: 36 mins Specific discharge activities: Please make sure usual BiPAP as discussed and make sure you follow up with scheduled colonoscopy this year. Also follow-up with the bedspread cutter to get established for Your history of pleural thickening - Discharge Medications Prescriptions: New Tiotropium [Spiriva] 18 mcg IH DAILY inh Continued Atorvastatin Calcium [Lipitor] 20 mg PO HS Fluticasone Propionate Nasal [Flonase] 2 spr NS QAM Cholecalciferol (Vitamin D3) [Vitamin D3] 10,000 unit PO WE Vit C/E/Zn/Coppr/Lutein/Zeaxan [Ocuvite Lutein & Zeaxanthin Cp] 1 each PO QAM Oxygen 3 l NS AD Cyanocobalamin (B-12) [Vitamin B12] 1,000 mcg PO QAM HYDROcodone/Acet 10/325 mg [[place] 10-325 mg] 1 tab PO Q6H PRN PRN Reason: Pain Isosorbide MONOnitrate [Isosorbide Mononitrate ER] 120 mg PO HS Loratadine [Allergy Relief] 10 mg PO DAILY PRN PRN Reason: Allergy Symptoms Mag Hydrox/Al Hydrox/Simeth [Maalox Advanced Suspension] 20 ml PO BID PRN PRN Reason: ACID REFLUX Albuterol Neb [Proventil Neb] 2.5 mg IH [id number] PRN #1 inh PRN Reason: Shortness Of Breath/Wheezing Albuterol Sulfate [Proair Hfa] 2 puff IH Q4H PRN #1 hfa.aer.ad PRN Reason: Dyspnea Budesonide/Formoterol 160/4.5 [Symbicort 160/4.5] 2 puff IH BIDR #1 inhaler Metoprolol XL (24 HR) Succ [Toprol Xl] 50 mg PO DAILY 365 Days tab.er.24h traZODone [TraZODone] 25 mg PO HS Bumetanide [Bumex] 1 mg PO DAILY tablet Finasteride [Proscar] 5 mg PO DAILY tablet Gabapentin [Neurontin] 300 mg PO BID #0 Tamsulosin [Flomax] 0.4 mg PO DAILY capsule Discontinued Tiotropium [Spiriva] 18 mcg PO QAM Home Medications: Albuterol Neb [Proventil Neb] 2.5 mg IH [id number] PRN #1 inh 12/12/17 [Rx] Albuterol Sulfate [Proair Hfa] 2 puff IH Q4H PRN #1 hfa.aer.ad 12/12/17 [Rx] Budesonide/Formoterol 160/4.5 [Symbicort 160/4.5] 2 puff IH BIDR #1 inhaler 12/12/17 [Rx] Atorvastatin Calcium [Lipitor] 20 mg PO HS 01/29/18 [History] Cholecalciferol (Vitamin D3) [Vitamin D3] 10,000 unit PO WE 01/29/18 [History] Fluticasone Propionate Nasal [Flonase] 2 spr NS QAM 01/29/18 [History] Metoprolol XL (24 HR) Succ [Toprol Xl] 50 mg PO DAILY 365 Days tab.er.24h 02/26/18 [Rx] traZODone [TraZODone] 25 mg PO HS 03/08/18 [History] Bumetanide [Bumex] 1 mg PO DAILY tablet 03/11/18 [Rx] Finasteride [Proscar] 5 mg PO DAILY tablet 03/11/18 [Rx] Gabapentin [Neurontin] 300 mg PO BID #0 03/11/18 [Rx] Tamsulosin [Flomax] 0.4 mg PO DAILY capsule 03/11/18 [Rx] Oxygen 3 l NS AD 11/05/18 [History] Vit C/E/Zn/Coppr/Lutein/Zeaxan [Ocuvite Lutein & Zeaxanthin Cp] 1 each PO QAM 11/05/18 [History] Cyanocobalamin (B-12) [Vitamin B12] 1,000 mcg PO QAM 11/06/18 [History] HYDROcodone/Acet 10/325 mg [[place] 10-325 mg] 1 tab PO Q6H PRN 11/06/18 [History] Isosorbide MONOnitrate [Isosorbide Mononitrate ER] 120 mg PO HS 11/06/18 [History] Loratadine [Allergy Relief] 10 mg PO DAILY PRN 11/06/18 [History] Mag Hydrox/Al Hydrox/Simeth [Maalox Advanced Suspension] 20 ml PO BID PRN 11/06/18 [History] Tiotropium [Spiriva] 18 mcg IH DAILY inh 11/07/18 [Rx] Allergies/Adverse Reactions: Allergy/AdvReac Type Severity Reaction Status Date / Time azithromycin Allergy See Verified 11/06/18 11:07 Comments Erythromycin Base Allergy Hives Verified 11/06/18 11:07 Penicillins [PCN] Allergy Hives Verified 11/06/18 11:07 [id number]-Vpf Reductase Allergy Itching Verified 01/29/18 10:03 Inhibitor [Statins] Date of admission: 11/06/18 00:03 Primary care physician: Brenda Moser CNP Consults: 11/06/18 09:53 Consult to Nurse Navigator [CONS] Routine Comment: CHF, COPD 11/06/18 13:59 Consult to Inspector Air Carrier [CONS] Routine Reason for SW Consult: [facility] for [facility] (recent CVA). Should return to rehab after d/c. Discharging clinician: Margarita Valdes Anticipated date of discharge: 11/07/18 - Constitutional Vitals: Temp Pulse Resp BP Pulse Ox 97.8 F 71 18 129/59 92 11/07/18 11:29 11/07/18 11:29 11/07/18 11:29 11/07/18 11:29 11/07/18 11:29 Exam: GEN: Obese male NAD, A&O x 3, Pleasant and conversant SKIN: [place] warm acyanotic not jaundice HEART: RRR, no murmurs LUNGS: CTA no wheeze or crackles, overall non labored ABDOMEN; Soft, non tender or distended, BS x 4 normactive EXT: No LE edema, Pedal pulses 1+, radial pulses 2+ PSYCH: Mood and affect is appropriate - Patient Status Disposition: Transfer Inpatient Rehab Fac Condition: Fair Functional capacity at discharge: independent ambulation Overall status at discharge: patient is back to baseline - Discharge Instructions Instructions: Acute Respiratory Distress Syndrome (DC), Anemia (GEN), Chronic Obstructive Pulmonary Disease (DC) Follow Up With: Brenda Moser CNP [Primary Care Provider] - - Diet and Activity Activity: as per physical therapy Diet: low fat, low cholesterol, low salt diet
--- NOTE | 2018-11-07 15:16 | Physician Discharge Referral ---
[facility] Referral Info Provider in Charge after Transfer: PCP Institutional Level of Care: Intermediate - Diagnosis (1) Acute and chronic respiratory failure Priority: Primary Status: Acute (2) Acute exacerbation of chronic obstructive airways disease Priority: Secondary Status: Acute (3) Pleural thickening Priority: Secondary Status: Acute (4) Anemia Priority: Secondary Status: Acute (5) COPD (chronic obstructive pulmonary disease) Priority: Secondary Status: Acute (6) Hypertension Priority: Secondary Status: Acute (7) MYRIAM (obstructive sleep apnea) Priority: Secondary Status: Acute Prognosis: Good Aware of Diagnosis: Patient Aware of Prognosis: Patient - Transfer Medications Home Medications: Albuterol Neb [Proventil Neb] 2.5 mg IH [id number] PRN #1 inh 12/12/17 [Rx] Albuterol Sulfate [Proair Hfa] 2 puff IH Q4H PRN #1 hfa.aer.ad 12/12/17 [Rx] Budesonide/Formoterol 160/4.5 [Symbicort 160/4.5] 2 puff IH BIDR #1 inhaler 12/12/17 [Rx] Atorvastatin Calcium [Lipitor] 20 mg PO HS 01/29/18 [History] Cholecalciferol (Vitamin D3) [Vitamin D3] 10,000 unit PO WE 01/29/18 [History] Fluticasone Propionate Nasal [Flonase] 2 spr NS QAM 01/29/18 [History] Metoprolol XL (24 HR) Succ [Toprol Xl] 50 mg PO DAILY 365 Days tab.er.24h 02/26/18 [Rx] traZODone [TraZODone] 25 mg PO HS 03/08/18 [History] Bumetanide [Bumex] 1 mg PO DAILY tablet 03/11/18 [Rx] Finasteride [Proscar] 5 mg PO DAILY tablet 03/11/18 [Rx] Gabapentin [Neurontin] 300 mg PO BID #0 03/11/18 [Rx] Tamsulosin [Flomax] 0.4 mg PO DAILY capsule 03/11/18 [Rx] Oxygen 3 l NS AD 11/05/18 [History] Vit C/E/Zn/Coppr/Lutein/Zeaxan [Ocuvite Lutein & Zeaxanthin Cp] 1 each PO QAM 11/05/18 [History] Cyanocobalamin (B-12) [Vitamin B12] 1,000 mcg PO QAM 11/06/18 [History] HYDROcodone/Acet 10/325 mg [[place] 10-325 mg] 1 tab PO Q6H PRN 11/06/18 [History] Isosorbide MONOnitrate [Isosorbide Mononitrate ER] 120 mg PO HS 11/06/18 [History] Loratadine [Allergy Relief] 10 mg PO DAILY PRN 11/06/18 [History] Mag Hydrox/Al Hydrox/Simeth [Maalox Advanced Suspension] 20 ml PO BID PRN 11/06/18 [History] Tiotropium [Spiriva] 18 mcg IH DAILY inh 11/07/18 [Rx] Allergies/Adverse Reactions: Allergy/AdvReac Type Severity Reaction Status Date / Time azithromycin Allergy See Verified 11/06/18 11:07 Comments Erythromycin Base Allergy Hives Verified 11/06/18 11:07 Penicillins [PCN] Allergy Hives Verified 11/06/18 11:07 [id number] Reductase Allergy Itching Verified 01/29/18 10:03 Inhibitor [Statins] - Respiratory Orders Other (Recommend routine use of BIBAP with naps, bedtime and also during the day intermittently due to chronic hypercapnea) Smoking Cessation: Smoking cessation has been advised. For more information, call the [place] Tobacco Quit Line at 3-742-YBZTNOW. - Advance Directives Code Status: Full Code - Mobility Orders Ambulate - Rehabiliation Orders Rehab Potential: Good Rehab Orders: Evaluation for Physical Therapy, Evaluation for Occupational Therapy - Diet Orders No Added Salt (CHINEDU), Cardiac CERTIFICATION: I certify that the transfer of the above named patient to an Extended Care Facility is necessary for the continuing treatment of the diagnosis listed. The above information is true and accurate reflection of patient's current condition. Confidential - Redisclosure prohibited without a patient's written consent.
== END 2018-11-07 18:28 ==
LOC: 2NENU 20:18 → EMEROOARM 20:18 → 2NENU 11-06 00:22
PROVIDERS: ADMIT Family Medicine; ATTEND Family Medicine